=== PATIENT | female | born 1965 | race Caucasian/White ===

== ENCOUNTER → 2016-07-21 | Outpatient (REF) | payer OTHER ==
[~2016-07-21] MED LIST: MYSO50TA5 PO; OMEP40CA2 PO; TRAZ50TA4 PO; VICT18IN SC; VITA100054 PO
[2016-07-21 11:26] LABS: DIFF SLIDE NUMBER 189; MEAN CORPUSCULAR HEMOGLOBIN 31.4 pg (27.0-33.0); MEAN CORPUSCULAR HGB CONC 31.5 g/dl (32.0-36.5); MEAN CORPUSCULAR VOLUME 99.5 fl (80.0-96.0); RED CELL DISTRIBUTION WIDTH 14.1 % (11.5-14.5); WHITE BLOOD COUNT 2.8 K/mm3 (4.0-10.0)
[2016-07-21 11:50] LABS: EOSINOPHILS 1 % (0-5)
[2016-07-21 11:52] LABS: ALBUMIN 3.3 GM/DL (3.2-5.2); ALBUMIN/GLOBULIN RATIO 0.77 (1.00-1.93); ALKALINE PHOSPHATASE 137 U/L (45-117); ALT/SGPT 56 U/L (12-78); ANION GAP 5 MEQ/L (8-16); AST/SGOT 46 U/L (15-37); BILIRUBIN,TOTAL 0.5 MG/DL (0.2-1.0); BLOOD UREA NITROGEN 9 MG/DL (7-18); CARBON DIOXIDE LEVEL 31 MEQ/L (21-32); CHLORIDE LEVEL 106 MEQ/L (98-107); GLOMERULAR FILTRATION RATE > 60.0 (>51); GLUCOSE, FASTING 166 MG/DL (70-105); POTASSIUM SERUM 4.1 MEQ/L (3.5-5.1); SODIUM LEVEL 142 MEQ/L (136-145); TOTAL PROTEIN 7.6 GM/DL (6.4-8.2)
[2016-07-21 12:04] LABS: PLATELET COUNT, AUTOMATED 83 k/mm3 (150-450)
[2016-07-21 14:44] LABS: CONTROL LINE MONO INT CTR LINE PRESENT
== END ==
LOC: M LAB REF 11:17
PROVIDERS: ATTEND Physician Assistant
DX: R05 Cough (principal); M70.832 Other soft tissue disorders related to use, overuse and pressure, left forearm

== ENCOUNTER → 2016-07-31 | Outpatient (CLI) | payer OTHER, MEDICAID ==
[2016-07-31 10:00] LABS: DIFF SLIDE NUMBER 134; MEAN CORPUSCULAR HEMOGLOBIN 32.1 pg (27.0-33.0); MEAN CORPUSCULAR HGB CONC 32.5 g/dl (32.0-36.5); MEAN CORPUSCULAR VOLUME 98.8 fl (80.0-96.0); RED CELL DISTRIBUTION WIDTH 14.1 % (11.5-14.5)
[2016-07-31 10:07] LABS: ALBUMIN 3.3 GM/DL (3.2-5.2); ALBUMIN/GLOBULIN RATIO 0.75 (1.00-1.93); ALKALINE PHOSPHATASE 120 U/L (45-117); ALT/SGPT 46 U/L (12-78); ANION GAP 10 MEQ/L (8-16); AST/SGOT 49 U/L (15-37); BILIRUBIN,TOTAL 0.4 MG/DL (0.2-1.0); BLOOD UREA NITROGEN 7 MG/DL (7-18); CALCIUM LEVEL 8.8 MG/DL (8.5-10.1); CARBON DIOXIDE LEVEL 28 MEQ/L (21-32); CHLORIDE LEVEL 103 MEQ/L (98-107); CREATININE FOR GFR 0.56 MG/DL (0.55-1.02); GLOMERULAR FILTRATION RATE > 60.0 (>51); GLUCOSE, FASTING 179 MG/DL (70-105); SODIUM LEVEL 141 MEQ/L (136-145); TOTAL PROTEIN 7.7 GM/DL (6.4-8.2)
[2016-07-31 10:08] LABS: BASO % 0.3 % (0.0-1.0); EOS % 1.7 % (0.0-3.0); LARGE UNSTAINED CELL % 2.6 % (0.0-4.0); LYMPH % 36.3 % (24.0-44.0); MONO % 6.8 % (0.0-5.0); NEUTROPHILS # 1.6 K/mm3 (1.8-7.7); NEUTROPHILS % 52.3 % (36.0-66.0); PLATELET COUNT, AUTOMATED 88 k/mm3 (150-450)
[2016-07-31 10:09] LABS: EOS # 0.1 K/mm3 (0.0-0.50); LARGE UNSTAINED CELL # 0.1 K/mm3 (0.0-0.4); LYMPH # 1.1 K/mm3 (1.5-4.5); MONO # 0.2 K/mm3 (0.0-0.8)
--- NOTE | 2016-07-31 10:15 | REP ---
Chest two views HISTORY: Infection Comparison: 11/30/2010 A minimal increase in interstitial markings is present in the lungs. The heart is normal in size. The pulmonary vasculature is normal in appearance. The bony structure is intact. IMPRESSION: There is a minimal increase in interstitial markings in the lungs most likely representing chronic interstitial fibrosis. Signed by Efrem Ricci MD 07/31/2016 10:07 A
== END ==
LOC: M WUC 08:31
PROVIDERS: ATTEND Nurse Practitioner Family
DX: B27.99 Infectious mononucleosis, unspecified with other complication (principal)

== ENCOUNTER → 2016-08-23 | Outpatient (REF) | payer OTHER, MEDICAID ==
[2016-08-23 17:03] LABS: REASON FOR REVIEW COMPREHENSIVE REVIEW
[2016-08-24 14:52] LABS: CONTROL LINE INT CTR LINE PRESENT; HIV SCRN NEGATIVE (NEGATIVE); HIV SCRN1 NEGATIVE (NEGATIVE)
== END ==
LOC: M LAB REF 16:06
PROVIDERS: ATTEND Internal Medicine Medical Oncology
DX: D61.818 Other pancytopenia (principal); R79.9 Abnormal finding of blood chemistry, unspecified

== ENCOUNTER → 2016-10-31 | Outpatient (REF) | payer OTHER ==
[2016-10-31 18:44] LABS: TOTAL PROTEIN 7.6 GM/DL (6.4-8.2)
[2016-11-02 12:33] LABS: ALBUMIN 3.82 GM/DL (3.29-5.55); ALBUMIN % 50.2 % (55.8-66.1); GAMMA GLOBULIN % 23.1 % (11.1-18.8)
== END ==
LOC: M LAB REF 16:40
PROVIDERS: ATTEND Internal Medicine Medical Oncology
DX: D69.6 Thrombocytopenia, unspecified (principal); D72.819 Decreased white blood cell count, unspecified

== ENCOUNTER → 2016-10-31 | Outpatient (CLI) | payer OTHER ==
--- NOTE | 2016-10-31 07:26 | REP ---
Clinical: History of mononucleosis. Splenomegaly. Technique: Real time mcarthur scale ultrasound examination of the left upper quadrant using curved array transducer. Findings: The spleen measures 14.1 x 7.8 x 14.1 cm (splenic uodip=[id number]), but is otherwise normal in contour and echogenicity without focal splenic lesion identified. A small accessory spleen in the left upper quadrant may choose 1.7 cm diameter. Left kidney is normal in reniform shape without hydronephrosis and measures 10.3 x 6.3 x 5.3 cm. No ascites. Impression: Splenomegaly without focal splenic lesion identified. Signed by Erik Olson MD 10/31/2016 07:18 A
== END ==
LOC: M RAD 06:11
PROVIDERS: ATTEND Internal Medicine Medical Oncology
DX: R79.9 Abnormal finding of blood chemistry, unspecified (principal); R16.1 Splenomegaly, not elsewhere classified

== ENCOUNTER → 2016-12-07 | Outpatient (REF) | payer OTHER ==
[~2016-12-07] MED LIST changes: +TRAZ50TA11 PO; -TRAZ50TA4 PO
[2016-12-07 13:40] LABS: REASON FOR REVIEW COMPREHENSIVE REVIEW
== END ==
LOC: M LAB REF 12:15
PROVIDERS: ATTEND Internal Medicine Medical Oncology
DX: D69.6 Thrombocytopenia, unspecified (principal); D61.818 Other pancytopenia

== ENCOUNTER → 2017-07-27 | Outpatient (REF) | payer OTHER ==
[2017-07-27 12:05] LABS: BASO % 0.3 % (0.0-1.0); EOS # 0.1 10^3/uL (0.0-0.50); EOS % 2.6 % (0.0-3.0); HEMATOCRIT 41.4 % (36.0-47.0); IMMATURE GRANULOCYTE % 0.3 % (0-3.0); LYMPH # 1.2 10^3/uL (1.5-4.5); LYMPH % 35.4 % (24.0-44.0); MEAN CORPUSCULAR HEMOGLOBIN 32.2 pg (27.0-33.0); MEAN CORPUSCULAR HGB CONC 31.4 g/dl (32.0-36.5); MEAN CORPUSCULAR VOLUME 102.5 fl (80.0-96.0); MONO # 0.2 10^3/uL (0.0-0.8); MONO % 6.6 % (0.0-5.0); NEUTROPHILS # 1.9 10^3/uL (1.8-7.7); NEUTROPHILS % 54.8 % (36.0-66.0); RED BLOOD COUNT 4.04 10^6/uL (4.00-5.40); RED CELL DISTRIBUTION WIDTH 14.7 % (11.5-14.5); WHITE BLOOD COUNT 3.5 10^3/uL (4.0-10.0)
[2017-07-27 12:18] LABS: TOTAL 25(OH) VITAMIN D 20.9 NG/ML (30.0-100.0)
[2017-07-27 12:24] LABS: ALBUMIN 3.6 GM/DL (3.2-5.2); ALBUMIN/GLOBULIN RATIO 0.86 (1.00-1.93); ALKALINE PHOSPHATASE 99 U/L (45-117); ALT/SGPT 40 U/L (12-78); ANION GAP 7 MEQ/L (8-16); AST/SGOT 37 U/L (7-37); BILIRUBIN,TOTAL 0.5 MG/DL (0.2-1.0); BLOOD UREA NITROGEN 11 MG/DL (7-18); CALCIUM LEVEL 8.7 MG/DL (8.5-10.1); CARBON DIOXIDE LEVEL 28 MEQ/L (21-32); CHLORIDE LEVEL 108 MEQ/L (98-107); CHOLESTEROL LEVEL 154 MG/DL (<200); CREATININE FOR GFR 0.56 MG/DL (0.55-1.30); GLOMERULAR FILTRATION RATE > 60.0 (>51); GLUCOSE, FASTING 144 MG/DL (70-100); HDL CHOLESTEROL 55 MG/DL (>40); IRON (FE) 62 UG/DL (50-170); LDL CHOLESTEROL 76.6 MG/DL (<100); NON-HDL-C 99 MG/DL; POTASSIUM SERUM 3.9 MEQ/L (3.5-5.1); SODIUM LEVEL 143 MEQ/L (136-145); TOTAL PROTEIN 7.8 GM/DL (6.4-8.2); TRIGLYCERIDES LEVEL 112 MG/DL (<150)
[2017-07-27 13:28] LABS: PLATELET COUNT, AUTOMATED 79 10^3/uL (150-450)
[2017-07-27 13:29] LABS: IMMATURE PLATELET FRACTION % 4.3 % (0.0-9.6)
== END ==
LOC: M LABDRAW1 08:33
DX: D50.9 Iron deficiency anemia, unspecified (principal); E55.9 Vitamin D deficiency, unspecified; Z13.220 Encounter for screening for lipoid disorders; E11.9 Type 2 diabetes mellitus without complications

== ENCOUNTER → 2017-10-11 | Outpatient (REF) | payer OTHER | LOC: M LAB REF 18:38 | DX: D72.819 Decreased white blood cell count, unspecified (principal) | CPT/HCPCS: 88300 ==

== ENCOUNTER → 2017-10-24 | Outpatient (CLI) | payer OTHER | LOC: M WHC 13:25 | DX: Z12.31 Encounter for screening mammogram for malignant neoplasm of breast (principal) ==

== ENCOUNTER → 2018-05-03 | Outpatient (REF) | payer OTHER ==
[2018-05-03 15:53] LABS: BASO % 0.3 % (0.0-1.0); HEMATOCRIT 41.2 % (36.0-47.0); HEMOGLOBIN 12.9 g/dl (12.0-15.5); IMMATURE GRANULOCYTE % 0.5 % (0-3.0); LYMPH # 0.8 10^3/uL (1.5-4.5); LYMPH % 21.7 % (24.0-44.0); MEAN CORPUSCULAR HEMOGLOBIN 31.3 pg (27.0-33.0); MEAN CORPUSCULAR HGB CONC 31.3 g/dl (32.0-36.5); MONO # 0.3 10^3/uL (0.0-0.8); MONO % 6.5 % (0.0-5.0); NEUTROPHILS # 2.7 10^3/uL (1.8-7.7); RED BLOOD COUNT 4.12 10^6/uL (4.00-5.40); RED CELL DISTRIBUTION WIDTH 15.5 % (11.5-14.5); WHITE BLOOD COUNT 3.9 10^3/uL (4.0-10.0)
[2018-05-03 15:53] LABS: IRON (FE) 93 UG/DL (50-170)
[2018-05-03 16:09] LABS: PLATELET COUNT, AUTOMATED 87 10^3/uL (150-450)
[2018-05-03 16:11] LABS: IMMATURE PLATELET FRACTION % 3.3 % (0.0-9.6)
== END ==
LOC: M LABDRAW1 13:43
DX: D50.9 Iron deficiency anemia, unspecified (principal); D55.9 Anemia due to enzyme disorder, unspecified
CPT/HCPCS: 83540

== ENCOUNTER → 2018-10-25 | Outpatient (CLI) | payer OTHER, MEDICAID ==
[~2018-10-25] MED LIST changes: +TRAZ-160 PO; -TRAZ50TA11 PO
--- NOTE | 2018-10-25 14:40 | REPMRS ---
Patient History The patient states she had a clinical breast exam in 10/2018. Patient is postmenopausal. No known family history of cancer. 3D TOMOSYNTHESIS WAS PERFORMED. Digital Woman Screen Mammo: October 25, 2018 - Exam #: [id number] Bilateral CC and MLO view(s) were taken. Technologist: Romi Kidd, Technologist Prior study comparison: October 24, 2017, digital woman screen mammo performed at [facility]. March 22, 2016, digital woman screen mammo performed at [facility]. FINDINGS: There are scattered fibroglandular densities. There has been no change in the appearance of the mammogram from the prior studies. There is a mild amount of residual fibroglandular tissue which is fairly symmetric. There is no interval development of dominant mass, architectural distortion, or clustered microcalcification suggestive of malignancy. Assessment: BI-RADS/ACR category 1 mammogram. Negative Mammogram. Recommendation Routine screening mammogram in 1 year (for women over age 40). This mammogram was interpreted with the aid of an FDA-approved computer-aided dectection system. Electronically Signed By: Anthony Baez MD 10/25/18 0789
== END ==
LOC: M WHC 13:20
PROVIDERS: ATTEND Nurse Practitioner Family
DX: Z12.31 Encounter for screening mammogram for malignant neoplasm of breast (principal)

== ENCOUNTER → 2018-11-02 | Outpatient (CLI) | payer OTHER, MEDICAID ==
[~2018-11-02] MED LIST changes: -TRAZ-160 PO; +TRAZ-252 PO
--- NOTE | 2018-11-02 09:06 | REP ---
Clinical: Chronic cough. Technique: PA and lateral. Comparison: 07/31/2016. Findings: Mediastinum and cardiac silhouette are normal. Coarsened pulmonary markings may reflect reactive airway disease. No focal consolidation. No effusion. No pneumothorax. Skeletal structures intact. Impression: Cannot exclude chronic reactive airway disease. No focal consolidation. Electronically Signed by Erik Olson MD 11/02/2018 08:57 A
[2018-11-02 09:11] LABS: BASO % 0.3 % (0.0-1.0); EOS # 0.1 10^3/uL (0.0-0.50); EOS % 1.6 % (0.0-3.0); HEMATOCRIT 43.5 % (36.0-47.0); HEMOGLOBIN 13.8 g/dl (12.0-15.5); LYMPH % 30.2 % (24.0-44.0); MEAN CORPUSCULAR HEMOGLOBIN 32.4 pg (27.0-33.0); MEAN CORPUSCULAR HGB CONC 31.7 g/dl (32.0-36.5); MEAN CORPUSCULAR VOLUME 102.1 fl (80.0-96.0); MONO # 0.2 10^3/uL (0.0-0.8); MONO % 5.4 % (0.0-5.0); NEUTROPHILS % 62.2 % (36.0-66.0); RED BLOOD COUNT 4.26 10^6/uL (4.00-5.40); WHITE BLOOD COUNT 3.2 10^3/uL (4.0-10.0)
[2018-11-02 09:12] LABS: PLATELET COUNT, AUTOMATED 75 10^3/uL (150-450)
[2018-11-02 09:36] LABS: ALBUMIN 3.4 GM/DL (3.2-5.2); ALT/SGPT 40 U/L (12-78); BILIRUBIN,TOTAL 0.5 MG/DL (0.2-1.0); BLOOD UREA NITROGEN 10 MG/DL (7-18); CALCIUM LEVEL 9.1 MG/DL (8.5-10.1); CARBON DIOXIDE LEVEL 26 MEQ/L (21-32); CHLORIDE LEVEL 106 MEQ/L (98-107); CHOLESTEROL LEVEL 142 MG/DL (<200); CHOLESTEROL RISK RATIO 2.535 (<5); CREATININE FOR GFR 0.64 MG/DL (0.55-1.30); FREE T4 0.79 NG/DL (0.76-1.46); GLOMERULAR FILTRATION RATE > 60.0 (>51); GLUCOSE, FASTING 161 MG/DL (70-100); HDL CHOLESTEROL 56 MG/DL (>40); LDL CHOLESTEROL 71 MG/DL (<100); MAGNESIUM LEVEL 2.2 MG/DL (1.8-2.4); NON-HDL-C 86 MG/DL; SODIUM LEVEL 141 MEQ/L (136-145); TRIGLYCERIDES LEVEL 76 MG/DL (<150)
[2018-11-02 09:40] LABS: CREATININE, URINE 48.8 MG/DL; MALB URINE SIEMENS 8.8 MG/L
[2018-11-02 10:32] LABS: HEMOGLOBIN A1c 6.6 %
[2018-11-04 10:13] LABS: TOTAL 25(OH) VITAMIN D 26.9 NG/ML (30.0-100.0)
== END ==
LOC: M LAB 08:15
PROVIDERS: ATTEND Nurse Practitioner Family
DX: E11.9 Type 2 diabetes mellitus without complications (principal); I10 Essential (primary) hypertension; E55.9 Vitamin D deficiency, unspecified; R05 Cough

== ENCOUNTER → 2018-12-03 | Outpatient (REF) | payer OTHER, MEDICAID ==
[~2018-12-03] MED LIST changes: +AZIT-12 PO; +INSUHUMDS SC; +LANTINJ4 SC; -OMEP40CA2 PO; +OMEP40CA97 PO
[2018-12-03 13:42] LABS: CREATININE, URINE 54.1 MG/DL; MAU/CREAT RATIO 20.3 MCG/MG (0.0-30.0)
== END ==
LOC: M LABDRAW1 11:09
PROVIDERS: ATTEND Nurse Practitioner Family
DX: E11.9 Type 2 diabetes mellitus without complications (principal)

== ENCOUNTER → 2018-12-20 | Outpatient (CLI) | payer OTHER, MEDICAID ==
[~2018-12-20] MED LIST changes: -AZIT-12 PO; +GASTROGRAFIN SOLUTION 30ML (Q9963) As Ordered ONE; -INSUHUMDS SC; +ISOVUE-370 76% 100ML VIAL (Q9967) As Ordered ONE; -LANTINJ4 SC; +OMEP40CA2 PO; -OMEP40CA97 PO
--- NOTE | 2018-12-20 15:47 | REP ---
CT abdomen and pelvis without and with IV contrast: With oral contrast. History: Thrombocytopenia. Comparison CT study October 16, 2011. CT contrast dose: 100 ml of intravenous Isovue [address] findings: Digital preliminary special education educational assistant radiograph demonstrates moderate enlargement of the spleen which displays a craniocaudal imaging span of 14.5 cm on the special education educational assistant view. Hernia repair sutures are seen scattered in the abdomen and there are clips in the right upper quadrant. The bowel gas pattern is normal. On pre and postcontrast CT images the spleen is moderately enlarged and is homogeneous. It measures 15.4 cm in greatest transverse dimension. The liver shows mild fatty infiltration but is not enlarged. However, the splenic vein is prominent in size. The main portal vein is 15 mm which is slightly prominent and there are umbilical vein recanalization collaterals in the upper abdomen entering the liver. There are variceal veins about the vena cava adjacent to the portal vein as well. The renal veins are unremarkable. The left ovarian vein and the parametrial veins are prominent however. No pancreatic abnormality is seen. The gallbladder is surgically absent. There is an intrarenal calculus in the lower pole of the right kidney measuring 6 mm in greatest diameter. No hydronephrosis or renal mass is seen on either side. The patient is status post ventral hernia repair. Small and large bowel loops are unremarkable. No uterine or adnexal abnormality is seen. Urinary bladder is intact. Impression: 1. Moderate splenomegaly. This is increased in size since the October 16, 2011 prior study when it was borderline in size measuring 12 cm in greatest dimension. It measures 15 cm today. There is some fatty infiltration of the liver. There are upper abdominal dilated collateral veins suggesting portal hypertension. The umbilical vein is recanalized and there are charly vena caval venous collaterals. 2. Intrarenal calculus lower pole right kidney 6 mm in diameter. 3. Postcholecystectomy. Post ventral herniorrhaphy. 4. Bilateral L5 spondylolysis with fusion of the L5-S1 disc. There is an 8 mm L5-S1 spondylolisthesis. Electronically Signed by Chino Hale MD 12/20/2018 04:55 P
== END ==
LOC: M RAD 12:21
PROVIDERS: ATTEND Nurse Practitioner Family
DX: D69.6 Thrombocytopenia, unspecified (principal)

== ENCOUNTER 2019-01-21 10:30 | Day surgery (SDC) | payer OTHER, MEDICAID ==
[~2019-01-21] VITALS: Ht 154.9 cm; Wt 79.4 kg
[~2019-01-21 10:30] MED LIST changes: -GASTROGRAFIN SOLUTION 30ML (Q9963) As Ordered ONE; -ISOVUE-370 76% 100ML VIAL (Q9967) As Ordered ONE
[2019-01-21] MEDS ORDERED: NS 1,000 ML IV ONE (11:00)
[2019-01-21] MEDS ORDERED: LIDOCAINE 2% INJ 100 MG/5 ML SDV (FOR ANES.) As Ordered ONE (11:29)
[2019-01-21] MEDS ORDERED: PROPOFOL 200 MG/20 ML VIAL As Ordered ONE (11:29)
--- NOTE | 2019-01-21 12:12 | ROOR ---
Patient Name: Jackie Cruz Procedure Date: 01/21/2019 11:14 AM Date of : 1965 Age: 53 [facility]: [facility] Gender: Female Note Status: Finalized Procedure: Upper GI endoscopy Indications: Portal hypertension rule out esophageal varices Providers: Brandon Lyon MD Referring MD: Yissel Waggoner Requesting Provider: Medicines: Monitored Anesthesia Care Complications: No immediate complications. Procedure: Pre-Anesthesia Assessment: - Prior to the procedure, a History and Physical was performed, and patient medications and allergies were reviewed. The patient is competent. The risks and benefits of the procedure and the sedation options and risks were discussed with the patient. All questions were answered and informed consent was obtained. Patient identification and proposed procedure were verified by the physician, the nurse and the anesthesiologist in the procedure room. Mental Status Examination: alert and oriented. Airway Examination: normal oropharyngeal airway and neck mobility. Respiratory Examination: clear to auscultation. CV Examination: normal. Prophylactic Antibiotics: The patient does not require prophylactic antibiotics. Prior Anticoagulants: The patient has taken no previous anticoagulant or antiplatelet agents. ASA Grade Assessment: III - A patient with severe systemic disease. After reviewing the risks and benefits, the patient was deemed in satisfactory condition to undergo the procedure. The anesthesia plan was to use monitored anesthesia care (MAC). Immediately prior to administration of medications, the patient was re-assessed for adequacy to receive sedatives. The heart rate, respiratory rate, oxygen saturations, blood pressure, adequacy of pulmonary ventilation, and response to care were monitored throughout the procedure. The physical status of the patient was re-assessed after the procedure. The Endoscope was introduced through the mouth, and advanced to the second part of duodenum. The upper GI endoscopy was accomplished without difficulty. The patient tolerated the procedure well. Findings: The examined esophagus was normal. The Z-line was regular and was found 40 cm from the incisors. Diffuse moderate inflammation characterized by erosions, erythema and granularity was found in the gastric antrum. Biopsies were taken with a cold forceps for Helicobacter pylori testing. Verification of patient identification for the specimen was done by the physician and nurse using the patient's name, date and medical record number. Estimated blood loss was minimal. The duodenal bulb and second portion of the duodenum were normal. Impression: - Normal esophagus. - Z-line regular, 40 cm from the incisors. - Gastritis. Biopsied. - Normal duodenal bulb and second portion of the duodenum. Recommendation: - Patient has a contact number available for emergencies. The signs and symptoms of potential delayed complications were discussed with the patient. Return to normal activities tomorrow. Written discharge instructions were provided to the patient. - Resume previous diet. - Continue present medications. - Await pathology results. - Follow an antireflux regimen. - Await pathology results. 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 Brandon Lyon MD Brandon Lyon MD 01/21/2019 12:11:32 PM Electronically signed by Brandon Lyon MD Number of Addenda: 0 Note Initiated On: 01/21/2019 11:14 AM Estimated Blood Loss: Estimated blood loss was minimal.
--- NOTE | 2019-01-21 12:14 | ROOR ---
Patient Name: Jackie Cruz Procedure Date: 01/21/2019 11:15 AM Date of : 1965 Age: 53 Room: [facility] Gender: Female Note Status: Finalized Procedure: Colonoscopy Indications: Screening for colorectal malignant neoplasm Providers: Brandon Lyon MD Referring MD: Yissel Waggoner Requesting Provider: Medicines: Monitored Anesthesia Care Complications: No immediate complications. Procedure: Pre-Anesthesia Assessment: - Prior to the procedure, a History and Physical was performed, and patient medications and allergies were reviewed. The patient is competent. The risks and benefits of the procedure and the sedation options and risks were discussed with the patient. All questions were answered and informed consent was obtained. Patient identification and proposed procedure were verified by the physician, the nurse and the anesthesiologist in the procedure room. Mental Status Examination: alert and oriented. Airway Examination: normal oropharyngeal airway and neck mobility. Respiratory Examination: clear to auscultation. CV Examination: normal. Prophylactic Antibiotics: The patient does not require prophylactic antibiotics. Prior Anticoagulants: The patient has taken no previous anticoagulant or antiplatelet agents. ASA Grade Assessment: II - A patient with mild systemic disease. After reviewing the risks and benefits, the patient was deemed in satisfactory condition to undergo the procedure. The anesthesia plan was to use monitored anesthesia care (MAC). Immediately prior to administration of medications, the patient was re-assessed for adequacy to receive sedatives. The heart rate, respiratory rate, oxygen saturations, blood pressure, adequacy of pulmonary ventilation, and response to care were monitored throughout the procedure. The physical status of the patient was re-assessed after the procedure. The Colonoscope was introduced through the anus and advanced to the terminal ileum, with identification of the appendiceal orifice and IC valve. The colonoscopy was performed without difficulty. The patient tolerated the procedure well. The quality of the bowel preparation was good. The terminal ileum, ileocecal valve, appendiceal orifice, and rectum were photographed. Scope insertion time was 3 minutes. Scope withdrawal time was 10 minutes. The total duration of the procedure was 14 minutes. Findings: The perianal and digital rectal examinations were normal. The terminal ileum appeared normal. A 4 mm polyp was found in the recto-sigmoid colon. The polyp was sessile. The polyp was removed with a cold biopsy forceps. Resection and retrieval were complete. Verification of patient identification for the specimen was done by the physician and nurse using the patient's name, date and medical record number. Estimated blood loss was minimal. Non-bleeding external and internal hemorrhoids were found during retroflexion. The hemorrhoids were medium-sized. No other significant abnormalities were identified in a careful examination of the remainder of the colon. Impression: - The examined portion of the ileum was normal. - One 4 mm polyp at the recto-sigmoid colon, removed with a cold biopsy forceps. Resected and retrieved. - Non-bleeding external and internal hemorrhoids. Recommendation: - Patient has a contact number available for emergencies. The signs and symptoms of potential delayed complications were discussed with the patient. Return to normal activities tomorrow. Written discharge instructions were provided to the patient. - High fiber diet. - Continue present medications. - Await pathology results. - Repeat colonoscopy in 5-10 years for surveillance based on pathology results. - Telephone GI clinic for pathology results in 2 weeks. - Return to GI clinic in [facility] (address [address], [address], [place] [address]) in 4 -- 6 weeks. Please call GI clinic @ [phone] for apppointment date and time. - Return to primary care physician. Brandon Lyon MD Brandon Lyon MD 01/21/2019 12:13:56 PM Electronically signed by Brandon Lyon MD Number of Addenda: 0 Note Initiated On: 01/21/2019 11:15 AM Estimated Blood Loss: Estimated blood loss was minimal.
[2019-01-21 12:20] VITALS: BP 128/62
[2019-01-21] MEDS ORDERED: D5W 1,000 ML IV SCH (12:45)
== END 2019-01-21 12:31 | disposition home or self-care (01) ==
LOC: M OPP 10:30
PROVIDERS: ATTEND Internal Medicine Gastroenterology
DX: Z12.11 Encounter for screening for malignant neoplasm of colon (principal); K64.8 Other hemorrhoids; K76.6 Portal hypertension; K29.70 Gastritis, unspecified, without bleeding; I10 Essential (primary) hypertension; J45.901 Unspecified asthma with (acute) exacerbation; E11.9 Type 2 diabetes mellitus without complications; Z79.4 Long term (current) use of insulin; Z79.899 Other long term (current) drug therapy; Z88.8 Allergy status to other drugs, medicaments and biological substances

== ENCOUNTER → 2019-02-28 | Outpatient (CLI) | payer OTHER, MEDICAID ==
[2019-02-28 15:27] LABS: PLATELET COUNT, AUTOMATED 80 10^3/uL (150-450)
[2019-02-28 15:41] LABS: INR 1.11; PARTIAL THROMBOPLASTIN TIME 28.7 SECONDS (25.0-38.4); PROTHROMBIN TIME 14.1 SECONDS (11.8-14.0)
[2019-02-28 16:05] LABS: ALBUMIN 3.4 GM/DL (3.2-5.2); ALT/SGPT 40 U/L (12-78); BILIRUBIN,DIRECT 0.2 MG/DL (0.0-0.2); BILIRUBIN,TOTAL 0.8 MG/DL (0.2-1.0); FERRITIN 70 NG/ML (8-252); HEPATITIS B SURFACE ANTIBODY NEGATIVE (POSITIVE); HEPATITIS B SURFACE ANTIGEN NEGATIVE (NEGATIVE); IRON (FE) 101 UG/DL (50-170); PERCENT SATURATION 27.2 % (13.2-45.0); TOTAL IRON BINDING CAPACITY 371 UG/DL (250-450); TOTAL PROTEIN 7.7 GM/DL (6.4-8.2)
[2019-02-28 16:31] LABS: HEPATITIS C VIRUS ABY INDEX 0.2 INDEX (<0.8)
[2019-03-04 08:37] LABS: ALPHA 1 ANTITRYPSIN 145 mg/dL (90-200); ANTI-MITOCHONDRIAL ANTIBODY <20.0 Units (0.0-20.0); ANTI-SMOOTH MUSCLE ANTIBODY 13 Units (0-19); ANTINUCLEAR ANTIBODIES DIRECT Negative (Negative); CERULOPLASMIN 23.3 mg/dL (19.0-39.0); LIVER-KIDNEY MICROSOMAL ABY <20.1 Units (0.0-20.0)
== END ==
LOC: M LAB 13:43
PROVIDERS: ATTEND Internal Medicine Gastroenterology
DX: K76.6 Portal hypertension (principal)

== ENCOUNTER → 2019-03-17 | Outpatient (CLI) | payer OTHER, MEDICAID ==
[~2019-03-17] MED LIST changes: -OMEP40CA2 PO; +OMEP40CA97 PO
--- NOTE | 2019-03-18 08:13 | REP ---
Clinical: Gastritis and history of portal hypertension. Technique: Real time mcarthur scale and color Doppler evaluation using curved array transducer. Findings: Liver demonstrates coarsened echotexture with decreased through transmission suggesting hepatocellular disease. No obvious focal hepatic lesion identified. The pancreas is incompletely evaluated due to interposed bowel gas but visualized portions appear normal. Splenomegaly is noted (splenic index equals 2356) without focal splenic lesion identified. The patient is known to be status post cholecystectomy. Common bile duct is normal at 6.4 mm. The bilateral kidneys are normal in appearance without hydronephrosis. Right kidney measures 12.4 x 5.9 x 5.2 cm. Left kidney measures 10.2 x 6.0 x 5.6 cm. Abdominal aorta measures 2.4 cm maximal diameter. No ascites. Color Doppler evaluation demonstrates a patent umbilical vein along with normal flow direction and wave patterns. Main portal vein velocity at 31 cm/sec which is upper limits of normal range. Hepatic vein demonstrates loss of normal phasicity and consistent with portal hypertension. Impression: 1. Findings consistent with cirrhosis and portal venous hypertension including recanalized umbilical vein and splenomegaly. Electronically Signed by Erik Olson MD 03/18/2019 08:04 A
== END ==
LOC: M RAD 06:54
PROVIDERS: ATTEND Internal Medicine Gastroenterology
DX: K76.6 Portal hypertension (principal); K29.50 Unspecified chronic gastritis without bleeding

== ENCOUNTER 2019-04-21 23:09 | Emergency (ER) | payer OTHER, MEDICAID ==
[2019-04-22 00:38] LABS: BASO % 0.3 % (0.0-1.0); EOS % 0.9 % (0.0-3.0); HEMATOCRIT 40.3 % (36.0-47.0); HEMOGLOBIN 12.8 g/dl (12.0-15.5); LYMPH # 0.5 10^3/uL (1.5-5.0); MEAN CORPUSCULAR HEMOGLOBIN 31.7 pg (27.0-33.0); MEAN CORPUSCULAR HGB CONC 31.8 g/dl (32.0-36.5); MEAN CORPUSCULAR VOLUME 99.8 fl (80.0-96.0); MONO # 0.3 10^3/uL (0.0-0.8); MONO % 10.4 % (0.0-5.0); NEUTROPHILS # 2.3 10^3/uL (1.5-8.5); NEUTROPHILS % 72.1 % (36.0-66.0); RED BLOOD COUNT 4.04 10^6/uL (4.00-5.40); WHITE BLOOD COUNT 3.2 10^3/uL (4.0-10.0)
[2019-04-22 00:49] LABS: BLOOD UREA NITROGEN 13 MG/DL (7-18); CALCIUM LEVEL 9.2 MG/DL (8.5-10.1); CARBON DIOXIDE LEVEL 30 MEQ/L (21-32); CHLORIDE LEVEL 103 MEQ/L (98-107); CREATININE FOR GFR 0.58 MG/DL (0.55-1.30); GLOMERULAR FILTRATION RATE > 60.0 (>51); GLUCOSE, FASTING 126 MG/DL (70-100); POTASSIUM SERUM 3.4 MEQ/L (3.5-5.1); SODIUM LEVEL 140 MEQ/L (136-145)
[2019-04-22 01:09] LABS: PLATELET COUNT, AUTOMATED 71 10^3/uL (150-450)
[2019-04-22] MEDS ORDERED: POTASSIUM CHLORIDE 10 MEQ SR TABLET PO ONE (02:00)
[2019-04-22] MEDS ORDERED: ISOVUE-370 76% 100ML VIAL (Q9967) As Ordered ONE (02:57)
[2019-04-22 03:14] LABS: ALBUMIN 3.3 GM/DL (3.2-5.2); ALT/SGPT 40 U/L (12-78); BILIRUBIN,DIRECT 0.2 MG/DL (0.0-0.2); BILIRUBIN,TOTAL 0.6 MG/DL (0.2-1.0); CK-MB VALUE MASS 5.5 NG/ML (<3.6); CPK CREATINE PHOSPHOKINASE 179 U/L (26-192); LIPASE 187 U/L (73-393); MB/CK RELATIVE INDEX 3.07 (< OR =4); TOTAL PROTEIN 7.6 GM/DL (6.4-8.2); TROPONIN I < 0.02 NG/ML (< 0.10)
--- NOTE | 2019-04-22 03:53 | REPVR ---
PROCEDURE INFORMATION: Exam: CT Angiography Chest With Contrast Exam date and time: 04/22/2019 3:10 AM Clinical history: 53 years old, female; Bilateral chest pain TECHNIQUE: Imaging protocol: Computed tomographic angiography of the chest with intravenous contrast. 3D rendering: MIP reconstructed images were created and reviewed. Radiation optimization: All CT scans at this facility use at least one of these dose optimization techniques: automated exposure control; mA and/or kV adjustment per patient size (includes targeted exams where dose is matched to clinical indication); or iterative reconstruction. Contrast material: ISOVUE 370; Contrast volume: 100 ml; Contrast route: IV; COMPARISON: CR Chest, 2 view PA, Lat 11/02/2018 8:52 AM FINDINGS: Pulmonary arteries: No pulmonary embolism is identified. Great vessels off aortic arch: The brachiocephalic artery, imaged proximal portion of the left common carotid artery, and left subclavian artery are intact. No significant stenosis or occlusion of these vessels is noted. Aorta: There is no thoracic aortic aneurysm, pseudoaneurysm, intramural hematoma, penetrating atherosclerotic ulcer, or dissection. Lungs: There are subpleural reticular opacities in both lungs. No consolidation or mass is noted. The major airways are patent. Pleural space: Unremarkable. No pneumothorax. No pleural effusion. Heart: There is cardiomegaly. No pericardial effusion. The ratio of the diameter of the right ventricle to the diameter of the left ventricle measures less than 1, which is within normal limits and there is no evidence for a right ventricular strain. Mediastinum: No mediastinal mass, fluid collection, or pneumomediastinum. Spleen: The spleen is enlarged. Incidental note is made of a small accessory spleen. Lymph nodes: Normal. No enlarged lymph nodes. Bones/joints: The imaged bony structures are intact. There is no suspicious osteolytic or osteoblastic lesion. There are 12 rib-bearing thoracic vertebral bodies. Soft tissues: Unremarkable. IMPRESSION: 1. No pulmonary embolism. 2. No thoracic aortic aneurysm, pseudoaneurysm, intramural hematoma, penetrating atherosclerotic ulcer, or dissection. 3. Subpleural reticular opacities in both lungs, which may indicate a nonspecific interstitial pneumonia or usual interstitial pneumonia pattern. 4. Cardiomegaly. 5. Splenomegaly. Electronically signed by: Jesus Ramos On 04/22/2019 03:53:29 AM
--- NOTE | 2019-04-22 03:54 | REPVR ---
PROCEDURE INFORMATION: Exam: CT Abdomen And Pelvis With Contrast Exam date and time: 04/22/2019 3:10 AM Clinical history: 53 years old, female; Abdominal pain; Generalized; Additional info: Bilateral chest pain TECHNIQUE: Imaging protocol: Computed tomography of the abdomen and pelvis with intravenous contrast. Radiation optimization: All CT scans at this facility use at least one of these dose optimization techniques: automated exposure control; mA and/or kV adjustment per patient size (includes targeted exams where dose is matched to clinical indication); or iterative reconstruction. Contrast material: ISOVUE 370; Contrast volume: 100 ml; Contrast route: IV; COMPARISON: CT ABD PELVIS W/O FOL BY WIT 12/20/2018 2:09 PM FINDINGS: Lungs: See CTA chest report on 04/22/2019 for details. Heart: See CTA chest report on 04/22/2019 for details. Liver: The attenuation of the liver is more than 40 Hounsfield units lower in attenuation compared to the spleen, which is compatible with fatty liver infiltration. No liver lesion is seen. The contour of the liver is smooth. No hepatomegaly is noted. Gallbladder and bile ducts: There has been a cholecystectomy. There is no fluid collection in the gallbladder fossa. No dilation of the bile ducts is noted. Pancreas: Normal. No ductal dilation. Spleen: The spleen is heterogeneous in appearance, which is likely secondary to the arterial timing of the contrast bolus. The spleen is enlarged and measures 13.8 cm. Incidental note is made of a small accessory spleen. Adrenals: Normal. No mass. Kidneys and ureters: The kidneys are normal in appearance. No renal lesion is identified. No calculi are seen in the kidneys or ureters. There is no hydronephrosis or hydroureter. There are no wedge-shaped areas of low attenuation in the kidneys to suggest pyelonephritis. There is no renal abscess or perinephric fluid collection. Stomach and bowel: There is no evidence for a bowel obstruction, diverticulosis, diverticulitis, colitis, pneumatosis intestinalis, intussusception, volvulus, or perforated viscus. Appendix: The appendix is not identified and may have been removed. No dilated blind ending tubular structure, inflammatory fat stranding, or fluid is noted in the expected location of the appendix. Intraperitoneal space: Unremarkable. No fluid collection. No free air. Retroperitoneal space: Unremarkable. No fluid collection. No mass. Vasculature: The abdominal aorta is patent, normal in caliber, and there is no dissection. The renal arteries, celiac artery, superior mesenteric artery, inferior mesenteric artery, iliac arteries, and common femoral arteries are patent. The main portal vein is dilated and measures 14 mm in diameter. The splenic vein is also dilated and measures 15 mm in diameter. Lymph nodes: Normal. No enlarged lymph nodes. Bladder: Unremarkable. No calculi or masses are noted in the bladder. Reproductive: The uterus is anterverted and unremarkable. The ovaries are unremarkable. Bones/joints: There are 6 non-rib bearing lumbar type vertebral bodies. There are chronic bilateral L6 pars defects and a grade 2 anterolisthesis of L6 on S1. There is solid bony bridging across the L6-S1 disc space. These findings are similar in appearance compared to the prior CT on 12/20/2018. Soft tissues: Postoperative changes are noted from a ventral hernia repair with a ventral hernia repair mesh in place. No drainable soft tissue fluid collection is noted. There is a midline vertical incision scar in the anterior abdominal wall. IMPRESSION: 1. No acute findings in the abdomen or pelvis. 2. Fatty liver. 3. Splenomegaly. Electronically signed by: Jesus Ramos On 04/22/2019 03:53:47 AM
[2019-04-22] MEDS ORDERED: AZIT-12 PO (04:48)
[2019-04-22] MEDS ORDERED: LANTINJ4 SC (05:14)
[2019-04-22] MEDS ORDERED: INSUHUMDS SC (05:15)
[2019-04-22 05:18] VITALS: BP 139/60
--- NOTE | 2019-04-22 07:46 | ECGEPIP ---
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
--- NOTE | 2019-04-23 13:40 | ED PDOC ---
Post-Departure Follow-Up roxana mcdaniels faxed formal report of ct chest and abd/p for fu Lalo Mulligan MD Apr 23, 2019 13:40
== END 2019-04-22 05:19 | disposition home or self-care (01) ==
LOC: M ED 23:09
DX: E11.649 Type 2 diabetes mellitus with hypoglycemia without coma (principal); J18.9 Pneumonia, unspecified organism; K74.60 Unspecified cirrhosis of liver; R51 Headache; K21.9 Gastro-esophageal reflux disease without esophagitis; K29.70 Gastritis, unspecified, without bleeding; M41.9 Scoliosis, unspecified; Z88.8 Allergy status to other drugs, medicaments and biological substances; Z79.4 Long term (current) use of insulin
CPT/HCPCS: 71275; 74177; 80048; 80076; 82550; 82553; 83690; 84484; 85025; 85049; 85055; 93005; 99284; Q9967

== ENCOUNTER → 2019-08-14 | Outpatient (CLI) | payer OTHER, MEDICAID ==
[~2019-08-14] MED LIST changes: +AZIT-12 PO; +INSUHUMDS SC; +LANTINJ4 SC
[2019-08-14 14:39] LABS: BASO % 0.2 % (0.0-1.0); EOS # 0.1 10^3/uL (0.0-0.5); EOS % 1.7 % (0.0-3.0); HEMATOCRIT 44.7 % (36.0-47.0); HEMOGLOBIN 14.5 g/dl (12.0-15.5); LYMPH # 1.1 10^3/uL (1.5-5.0); LYMPH % 26.5 % (24.0-44.0); MEAN CORPUSCULAR HEMOGLOBIN 32.2 pg (27.0-33.0); MEAN CORPUSCULAR HGB CONC 32.4 g/dl (32.0-36.5); MEAN CORPUSCULAR VOLUME 99.3 fl (80.0-96.0); MONO # 0.3 10^3/uL (0.0-0.8); MONO % 6.4 % (0.0-5.0); NEUTROPHILS # 2.6 10^3/uL (1.5-8.5); NEUTROPHILS % 64.7 % (36.0-66.0); WHITE BLOOD COUNT 4.1 10^3/uL (4.0-10.0)
[2019-08-14 14:40] LABS: ALBUMIN 3.8 GM/DL (3.2-5.2); BILIRUBIN,DIRECT 0.4 MG/DL (0.0-0.2); BILIRUBIN,TOTAL 1.1 MG/DL (0.2-1.0); CHOLESTEROL RISK RATIO 2.161 (<5); TOTAL PROTEIN 7.9 GM/DL (6.4-8.2)
[2019-08-14 14:47] LABS: PLATELET COUNT, AUTOMATED 85 10^3/uL (150-450)
[2019-08-14 15:13] LABS: INR 1.12; PARTIAL THROMBOPLASTIN TIME 28.6 SECONDS (25.0-38.4); PROTHROMBIN TIME 14.2 SECONDS (11.8-14.0)
== END ==
LOC: M LAB 13:54
PROVIDERS: ATTEND Internal Medicine Gastroenterology
DX: K74.60 Unspecified cirrhosis of liver (principal)

== ENCOUNTER → 2019-09-02 | Outpatient (CLI) | payer OTHER, MEDICAID ==
--- NOTE | 2019-09-02 10:04 | REP ---
ULTRASOUND ABDOMEN: Real-time sonographic evaluation of the abdomen performed. Patient has had a prior cholecystectomy. There is no intrahepatic or extrahepatic biliary dilatation. Common bile duct measures 6 mm. Echotexture of the liver is diffusely heterogeneous. No mass is seen. Pancreas demonstrates no mass. Spleen is moderately enlarged measuring 16.4 x 15.8 x 6.4 cm, splenic index is 1658. There appears to be a small splenule 1.7 x 1.7 x 1.5 cm. Kidneys are normal in size and echotexture, right kidney measuring 11.7 x 5.5 x 4.4 cm and left kidney 10.3 x 5.2 x 4.3 cm. There is no renal mass or hydronephrosis. There is ectasia of the mid abdominal aorta with an AP diameter 2.5 cm. Proximally AP diameter is 1.9 cm and distally 1.8 cm. There is no ascites. IMPRESSION: Status post cholecystectomy. Heterogeneous echotexture of the liver with no sonographic evidence of mass. Moderate splenomegaly. Electronically Signed by Anthony Baez MD 09/02/2019 10:32 A
== END ==
LOC: M RAD 08:05
PROVIDERS: ATTEND Internal Medicine Gastroenterology
DX: K74.60 Unspecified cirrhosis of liver (principal); Z90.49 Acquired absence of other specified parts of digestive tract

== ENCOUNTER → 2019-10-28 | Outpatient (REF) | payer OTHER, MEDICAID ==
[2019-10-28 19:38] LABS: CREATININE, URINE 30.5 MG/DL; MALB URINE SIEMENS 8.9 MG/L; MAU/CREAT RATIO 29.1 MCG/MG (0.0-30.0)
== END ==
LOC: M LAB REF 15:03
PROVIDERS: ATTEND Internal Medicine Endocrinology, Diabetes & Metabolism
DX: E11.9 Type 2 diabetes mellitus without complications (principal)

== ENCOUNTER → 2019-10-29 | Outpatient (CLI) | payer OTHER, MEDICAID ==
--- NOTE | 2019-10-29 14:43 | REPMRS ---
Patient History The patient states she had a clinical breast exam in October 2019. No known family history of cancer. Digital Woman Screen Mammo: October 29, 2019 - Exam #: [id number] Bilateral CC and MLO view(s) were taken. Technologist: Nisreen Centeno, Technologist Prior study comparison: October 25, 2018, bilateral digital woman screen mammo performed at [facility]. October 24, 2017, digital woman screen mammo performed at [facility]. March 22, 2016, digital woman screen mammo performed at [facility]. FINDINGS: There are scattered fibroglandular densities. The Volpara volumetric breast density category is:B. There has been no change in the appearance of the mammogram from the prior studies. There is a mild amount of scattered fibroglandular density which is fairly symmetric. There is no interval development of dominant mass, architectural distortion, or grouped microcalcification suggestive of malignancy. 3-D tomosynthesis shows no additional findings. Assessment: BI-RADS/ACR category 1 mammogram. Negative Mammogram. Recommendation Routine screening mammogram of both breasts in 1 year (for women over age 40). This patient's Lifetime Breast Cancer Risk is estimated at 10.3 %. This mammogram was interpreted with the aid of an FDA-approved computer-aided dectection system. Electronically Signed By: Pancho Hale MD 10/29/19 1720
== END ==
LOC: M WHC 13:08
PROVIDERS: ATTEND Nurse Practitioner Family
DX: Z12.31 Encounter for screening mammogram for malignant neoplasm of breast (principal)

== ENCOUNTER 2020-01-05 21:50 | Emergency (ER) | payer OTHER, MEDICAID ==
[2020-01-05] MEDS ORDERED: ACETAMINOPHEN TAB 650MG DOSE (2X325MG) ONE (22:29)
[2020-01-06] MEDS ORDERED: LevoFLOXacin 750 MG TABLET ONE (01:31)
[2020-01-06] MEDS ORDERED: IBUPROFEN 800 MG TAB ONE (01:31)
[2020-02-22 03:46] LABS: BASO % 0.3 % (0.0-1.0); EOS % 0.6 % (0.0-3.0); HEMATOCRIT 42.7 % (36.0-47.0); HEMOGLOBIN 13.5 g/dl (12.0-15.5); LYMPH # 0.3 10^3/uL (1.5-5.0); LYMPH % 7.9 % (24.0-44.0); MEAN CORPUSCULAR HEMOGLOBIN 30.8 pg (27.0-33.0); MEAN CORPUSCULAR HGB CONC 31.6 g/dl (32.0-36.5); MEAN CORPUSCULAR VOLUME 97.5 fl (80.0-96.0); MONO # 0.1 10^3/uL (0.0-0.8); MONO % 1.4 % (0.0-5.0); NEUTROPHILS # 3.2 10^3/uL (1.5-8.5); NEUTROPHILS % 89.2 % (36.0-66.0); RED BLOOD COUNT 4.38 10^6/uL (4.00-5.40); WHITE BLOOD COUNT 3.5 10^3/uL (4.0-10.0)
[2020-02-22 03:53] LABS: PLATELET COUNT, AUTOMATED 73 10^3/uL (150-450)
[2020-02-22 03:59] LABS: APPEARANCE, URINE HAZY (CLEAR); BACTERIA, URINE AUTO NEGATIVE (NEGATIVE); BILIRUBIN, URINE AUTO NEGATIVE (NEGATIVE); BLOOD, URINE BLOOD 1+ (NEGATIVE); COLOR, URINE YELLOW (YELLOW); GLUCOSE, URINE (UA) AUTO 3+ mg/dL (NEGATIVE); KETONE, URINE AUTO TRACE mg/dL (NEGATIVE); LEUKOCYTE ESTERASE, URINE AUTO 1+ (NEGATIVE); NITRITE, URINE AUTO NEGATIVE (NEGATIVE); PROTEIN, URINE AUTO NEGATIVE (NEGATIVE); RBC, URINE AUTO 4 /HPF (0-3); SPECIFIC GRAVITY URINE AUTO 1.015 (1.002-1.035); SQUAMOUS EPITHELIAL CELL UR AU 0 /HPF (0-6); UROBILINOGEN, URINE AUTO 0.2 mg/dL (0.0-2.0); WBC, URINE AUTO 35 /HPF (0-3)
[2020-03-15 01:20] LABS: ALBUMIN 3.7 GM/DL (3.2-5.2); ALT/SGPT 36 U/L (12-78); BILIRUBIN,DIRECT 0.5 MG/DL (0.0-0.2); BILIRUBIN,TOTAL 1.4 MG/DL (0.2-1.0); BLOOD UREA NITROGEN 11 MG/DL (7-18); CARBON DIOXIDE LEVEL 25 MEQ/L (21-32); CHLORIDE LEVEL 109 MEQ/L (98-107); CREATININE FOR GFR 0.79 MG/DL (0.55-1.30); GLOMERULAR FILTRATION RATE > 60.0 (>51); GLUCOSE, FASTING 144 MG/DL (70-100); LIPASE 204 U/L (73-393); POTASSIUM SERUM 3.8 MEQ/L (3.5-5.1); SODIUM LEVEL 140 MEQ/L (136-145); TOTAL PROTEIN 8.1 GM/DL (6.4-8.2)
== END 2020-01-06 02:40 | disposition home or self-care (01) ==
LOC: M ED 21:50
DX: J18.9 Pneumonia, unspecified organism (principal); E11.9 Type 2 diabetes mellitus without complications; J98.11 Atelectasis; K74.60 Unspecified cirrhosis of liver; Z79.4 Long term (current) use of insulin; Z79.899 Other long term (current) drug therapy; Z78.0 Asymptomatic menopausal state

== ENCOUNTER → 2020-01-05 | Outpatient (REF) | payer OTHER, MEDICAID ==
[2020-02-14 21:16] LABS: CREATININE, URINE 46.6 MG/DL; MAU/CREAT RATIO 225.3 MCG/MG (0.0-30.0)
== END ==
LOC: M LAB REF 09:50
PROVIDERS: ATTEND Nurse Practitioner Family
DX: E11.9 Type 2 diabetes mellitus without complications (principal)

== ENCOUNTER → 2020-05-19 | Outpatient (CLI) | payer OTHER, MEDICAID ==
[2020-05-19 08:14] LABS: BASO % 0.4 % (0.0-1.0); EOS # 0.1 10^3/uL (0.0-0.5); EOS % 2.1 % (0.0-3.0); HEMOGLOBIN 13.2 g/dl (12.0-15.5); LYMPH # 0.6 10^3/uL (1.5-5.0); LYMPH % 26.6 % (24.0-44.0); MEAN CORPUSCULAR HEMOGLOBIN 31.1 pg (27.0-33.0); MEAN CORPUSCULAR HGB CONC 31.4 g/dl (32.0-36.5); MEAN CORPUSCULAR VOLUME 99.1 fl (80.0-96.0); MONO # 0.2 10^3/uL (0.0-0.8); MONO % 6.4 % (0.0-5.0); NEUTROPHILS # 1.5 10^3/uL (1.5-8.5); NEUTROPHILS % 63.6 % (36.0-66.0); RED BLOOD COUNT 4.24 10^6/uL (4.00-5.40); WHITE BLOOD COUNT 2.3 10^3/uL (4.0-10.0)
[2020-05-19 08:17] LABS: PLATELET COUNT, AUTOMATED 56 10^3/uL (150-450)
[2020-05-19 08:22] LABS: ALBUMIN 3.4 GM/DL (3.2-5.2); ALT/SGPT 33 U/L (12-78); BILIRUBIN,TOTAL 0.4 MG/DL (0.2-1.0); BLOOD UREA NITROGEN 11 MG/DL (7-18); CALCIUM LEVEL 9.3 MG/DL (8.5-10.1); CARBON DIOXIDE LEVEL 31 MEQ/L (21-32); CHLORIDE LEVEL 109 MEQ/L (98-107); CREATININE FOR GFR 0.55 MG/DL (0.55-1.30); FREE T4 0.76 NG/DL (0.76-1.46); GLOMERULAR FILTRATION RATE > 60.0 (>51); GLUCOSE, FASTING 107 MG/DL (70-100); POTASSIUM SERUM 3.9 MEQ/L (3.5-5.1); SODIUM LEVEL 141 MEQ/L (136-145); THYROID STIMULATING HORMONE 0.829 uIU/ML (0.358-3.740); TOTAL PROTEIN 7.6 GM/DL (6.4-8.2)
[2020-05-19 09:33] LABS: HEMOGLOBIN A1c 6.2 %
[2020-05-19 10:22] LABS: TOTAL 25(OH) VITAMIN D 25.4 NG/ML (30.0-100.0)
== END ==
LOC: M LAB 06:48
PROVIDERS: ATTEND Nurse Practitioner Family
DX: E55.9 Vitamin D deficiency, unspecified (principal); D69.6 Thrombocytopenia, unspecified; E11.9 Type 2 diabetes mellitus without complications

== ENCOUNTER → 2020-05-19 | Outpatient (CLI) | payer OTHER, MEDICAID ==
--- NOTE | 2020-05-19 07:53 | REP ---
INDICATION: UNSPEC CIRRHOSIS OF LIVER LABS 1ST US 2ND. COMPARISON: 09/02/2019. TECHNIQUE: Right upper quadrant abdominal ultrasound. FINDINGS: There is a cholecystectomy. This is unchanged. There is no intrahepatic or extrahepatic biliary duct dilatation. The common biliary duct measures 7.2 mm in diameter, this is in the normal range post cholecystectomy. The hepatic parenchyma is diffusely mildly coarsened, unchanged. This is compatible with hepato steatosis/hepatocellular disease. No hepatic solid or cystic masses are identified. The pancreas is unremarkable. The spleen is not included in the current study, however, on the prior study the spleen was enlarged. The right kidney is normal size measuring 10.4 x 5.6 x 5.2 cm. There is no right renal calculus or hydronephrosis. There is no right renal solid or cystic mass. The visualized areas of the abdominal aorta are unremarkable. There is no abdominal right upper quadrant free fluid. IMPRESSION: Cholecystectomy, unchanged. Mildly coarsened hepatic parenchyma, unchanged. No solid or cystic hepatic masses. Splenomegaly on the previous study. The spleen is not included on the current right upper quadrant ultrasound. No right upper quadrant abdominal free fluid. <Electronically signed by Anthony Montiel > 05/19/20 1199
[2020-05-19 08:14] LABS: ALBUMIN 3.3 GM/DL (3.2-5.2); BILIRUBIN,DIRECT 0.2 MG/DL (0.0-0.2); BILIRUBIN,TOTAL 0.4 MG/DL (0.2-1.0); TOTAL PROTEIN 7.5 GM/DL (6.4-8.2)
== END ==
LOC: M LAB 06:32 → M RAD 06:32
PROVIDERS: ATTEND Internal Medicine Gastroenterology
DX: K74.60 Unspecified cirrhosis of liver (principal); Z90.49 Acquired absence of other specified parts of digestive tract

== ENCOUNTER → 2020-05-20 | Outpatient (CLI) | payer OTHER, MEDICAID | LOC: M LAB 14:24 | PROVIDERS: ATTEND Physician Assistant | DX: R06.00 Dyspnea, unspecified (principal) ==

== ENCOUNTER → 2020-06-24 | Outpatient (CLI) | payer OTHER, MEDICAID ==
--- NOTE | 2020-06-25 06:34 | REP ---
INDICATION: OTHER NON SPECIFIC ABNORMAL FINDING OF LUNG FIELD COMPARISON: 04/22/2019 TECHNIQUE: Axial noncontrast images from the thoracic inlet to the upper abdomen with coronal and sagittal reformations. Images obtained high-resolution technique on inspiration and expiration. This CT examination was performed using the following dose reduction techniques: Automated exposure control, adjustment of mA and/or kv according to the patient's size, and use of iterative reconstruction technique. FINDINGS: Lung ocampo demonstrate moderate scattered bilateral subpleural and perifissural fibrosis along with diffuse chronic interstitial changes. Pattern remains relatively stable on inspiration and expiration and is consistent with chronic interstitial disease/usual interstitial pneumonia. These findings are similar in distribution and appear mildly progressive as compared to prior examination. No discrete focal consolidation or effusion. No pneumothorax. Tracheobronchial tree is relatively patent. Further evaluation of the mediastinum demonstrates relatively normal thoracic aorta, pulmonary vasculature, and heart/pericardium. No cardiomegaly or pericardial effusion noted. Thyroid gland is grossly normal. Musculoskeletal structures are intact and without acute osseous abnormality. IMPRESSION: Chronic mildly progressive fibrosis. Differential diagnosis includes usual interstitial pneumonia and other nonspecific pulmonary interstitial disease. <Electronically signed by Erik Olson > 06/25/20 2212
== END ==
LOC: M RAD 14:42
PROVIDERS: ATTEND Physician Assistant
DX: R91.8 Other nonspecific abnormal finding of lung field (principal); J84.10 Pulmonary fibrosis, unspecified

== ENCOUNTER → 2020-07-27 | Outpatient (REF) | payer OTHER, MEDICAID | LOC: M LAB REF 17:19 | PROVIDERS: ATTEND Internal Medicine Pulmonary Disease | DX: J84.112 Idiopathic pulmonary fibrosis (principal) ==

== ENCOUNTER → 2020-08-18 | Outpatient (CLI) | payer OTHER, MEDICAID ==
[~2020-08-18] MED LIST changes: +ALL10TAB2 PO; +AZEL1SPR3 NARES; +B-1100TA2 PO; +CALCCAP4 PO; +D31000TA2 PO; +FLUT15.820 NARES; +FOLI1TAB11 PO; +HM S0.65 NARES; +JARD1TAB PO; +MONT10TA10 PO; +PERI0.126 SSP; +PROBCAP14 PO; +VENTAER INH; +VITMTA PO
--- NOTE | 2020-08-18 09:03 | REP ---
INDICATION: THROMBOCYTOPENIA COMPARISON: 05/19/2020 TECHNIQUE: Real time B-mode mcarthur scale ultrasound examination using curved array transducer. FINDINGS: Liver demonstrates coarsened echotexture and noted patent umbilical vein consistent with cirrhosis. No focal hepatic lesions are identified. Pancreas is incompletely evaluated due to interposed bowel gas but visualized portions are normal. Spleen is enlarged and measures 15.1 x 14.7 x 7.9 cm without focal splenic lesion appreciated. Incidental small splenule noted. Patient is status post cholecystectomy. Common bile duct measures 7 mm diameter. Bilateral kidneys are normal and without hydronephrosis. Right kidney measures 11.1 x 5.0 x 5.2 cm. Left kidney measures 10.0 x 5.6 x 4.8 cm. Visualized abdominal aorta appears normal and measures 1.8 cm maximal diameter. No ascites. IMPRESSION: Findings suggesting cirrhosis and portal hypertension including patent umbilical vein and splenomegaly. No focal hepatic or splenic lesions identified. <Electronically signed by Erik Olson > 08/18/20 0900
== END ==
LOC: M RAD 08:08
PROVIDERS: ATTEND Internal Medicine Hematology & Oncology
DX: K74.60 Unspecified cirrhosis of liver (principal); K76.6 Portal hypertension; R16.1 Splenomegaly, not elsewhere classified

== ENCOUNTER → 2020-09-12 | Outpatient (CLI) | payer OTHER, MEDICAID | LOC: M LABSMTC 11:36 | PROVIDERS: ATTEND Anesthesiology | DX: Z01.812 Encounter for preprocedural laboratory examination (principal) ==

== ENCOUNTER → 2020-09-13 | Outpatient (CLI) | payer OTHER, MEDICAID ==
[2020-09-13 13:50] LABS: APPEARANCE, URINE CLEAR (CLEAR); BACTERIA, URINE AUTO NEGATIVE (NEGATIVE); BILIRUBIN, URINE AUTO NEGATIVE (NEGATIVE); BLOOD, URINE BLOOD NEGATIVE (NEGATIVE); COLOR, URINE STRAW (YELLOW); GLUCOSE, URINE (UA) AUTO 3+ mg/dL (NEGATIVE); KETONE, URINE AUTO NEGATIVE (NEGATIVE); LEUKOCYTE ESTERASE, URINE AUTO NEGATIVE (NEGATIVE); NITRITE, URINE AUTO NEGATIVE (NEGATIVE); PROTEIN, URINE AUTO NEGATIVE (NEGATIVE); RBC, URINE AUTO 0 /HPF (0-3); SPECIFIC GRAVITY URINE AUTO 1.029 (1.002-1.035); SQUAMOUS EPITHELIAL CELL UR AU 0 /HPF (0-6); UROBILINOGEN, URINE AUTO 0.2 mg/dL (0.0-2.0); WBC, URINE AUTO 0 /HPF (0-3)
[2020-09-13 13:52] LABS: ABG BASE EXCESS -2.5 (-2.0-2.0); ABG HCO3 21.8 MEQ/L (22.0-26.0); ABG O2 SATURATION 98.8 % (95.0-99.0); ABG PARTIAL PRESSURE CO2 36.5 mmHg (35.0-45.0); ABG PARTIAL PRESSURE O2 125.6 mmHg (75.0-100.0); ABG STANDARD HCO3 22.4 MEQ/L (22.0-26.0); ABG pH (ARTERIAL) 7.395 UNITS (7.350-7.450)
[2020-09-13 13:59] LABS: HEMATOCRIT 42.3 % (36.0-47.0); HEMOGLOBIN 12.9 g/dl (12.0-15.5); MEAN CORPUSCULAR HEMOGLOBIN 30.2 pg (27.0-33.0); MEAN CORPUSCULAR HGB CONC 30.5 g/dl (32.0-36.5); MEAN CORPUSCULAR VOLUME 99.1 fl (80.0-96.0); PLATELET COUNT, AUTOMATED 54 10^3/uL (150-450); RED BLOOD COUNT 4.27 10^6/uL (4.00-5.40); WHITE BLOOD COUNT 2.1 10^3/uL (4.0-10.0)
[2020-09-13 14:07] LABS: INR 1.03; PROTHROMBIN TIME 13.7 SECONDS (12.5-14.3)
[2020-09-13 14:19] LABS: BLOOD UREA NITROGEN 10 MG/DL (7-18); CALCIUM LEVEL 9.4 MG/DL (8.5-10.1); CARBON DIOXIDE LEVEL 28 MEQ/L (21-32); CHLORIDE LEVEL 107 MEQ/L (98-107); CREATININE FOR GFR 0.64 MG/DL (0.55-1.30); GLOMERULAR FILTRATION RATE > 60.0 (>51); GLUCOSE, FASTING 250 MG/DL (70-100); POTASSIUM SERUM 3.7 MEQ/L (3.5-5.1); SODIUM LEVEL 137 MEQ/L (136-145)
--- NOTE | 2020-09-13 23:27 | ECGEPIP ---
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
--- NOTE | 2020-09-14 09:35 | REP ---
INDICATION: PULMONARY FIBROSIS COMPARISON: 01/06/2020 TECHNIQUE: PA and lateral. FINDINGS: Mediastinum and cardiac silhouette are within normal limits and stable. Chronic changes consistent with the given history of pulmonary fibrosis noted. No obvious discrete focal consolidation, effusion, or pneumothorax. Skeletal structures are intact. IMPRESSION: No acute cardiopulmonary process. Chronic appearing changes consistent with the given history of pulmonary fibrosis. <Electronically signed by Erik Olson > 09/14/20 0931
== END ==
LOC: M ADMPAT 13:01
PROVIDERS: ATTEND Thoracic Surgery (Cardiothoracic Vascular Surgery)
DX: J84.112 Idiopathic pulmonary fibrosis (principal)

== ENCOUNTER → 2020-09-13 | Outpatient (CLI) | payer OTHER, MEDICAID | LOC: M RAD 14:27 | PROVIDERS: ATTEND Thoracic Surgery (Cardiothoracic Vascular Surgery) | DX: Z53.9 Procedure and treatment not carried out, unspecified reason (principal); J84.112 Idiopathic pulmonary fibrosis ==

== ENCOUNTER 2020-09-17 06:38 | Inpatient (IN) | payer OTHER, MEDICAID ==
[~2020-09-17] VITALS: Ht 154.9 cm; Wt 70.4 kg
[2020-09-17] VITALS (7 sets, daily range): BP systolic 100–161; BP diastolic 54–77; O2SAT 97
[~2020-09-17 06:38] MED LIST changes: +LIDOCAINE 1% MDV 20ML VIAL SQ PRN
[2020-09-17] MEDS ORDERED: ceFAZolin SOD 2 GM in IV 1 EA IV ONE ×2 (07:00→08:00)
[2020-09-17] MEDS ORDERED: LR 1,000 ML IV ONE (07:00)
[2020-09-17] MEDS ORDERED: MUPIROCIN 2% OINT 22 GM TUBE TOP ONE (07:00)
[2020-09-17 07:26] LABS: HEMATOCRIT 44.2 % (36.0-47.0); HEMOGLOBIN 13.6 g/dl (12.0-15.5); MEAN CORPUSCULAR HEMOGLOBIN 30.3 pg (27.0-33.0); MEAN CORPUSCULAR HGB CONC 30.8 g/dl (32.0-36.5); MEAN CORPUSCULAR VOLUME 98.4 fl (80.0-96.0); RED BLOOD COUNT 4.49 10^6/uL (4.00-5.40); WHITE BLOOD COUNT 2.9 10^3/uL (4.0-10.0)
[2020-09-17 07:28] LABS: PLATELET COUNT, AUTOMATED 59 10^3/uL (150-450)
[2020-09-17] MEDS ORDERED: ROCURONIUM BROMIDE 50 MG/5 ML VIAL As Ordered ONE ×2 (08:27→10:17)
[2020-09-17] MEDS ORDERED: propofoL 200 MG/20 ML VIAL As Ordered ONE (08:27)
[2020-09-17] MEDS ORDERED: LIDOCAINE 2% 100MG/5ML SDV (FOR ANES.) As Ordered ONE (08:27)
[2020-09-17] MEDS ORDERED: MIDAZOLAM INJ 2MG/2ML VIAL (J2250 PER 1MG) As Ordered ONE (08:28)
[2020-09-17] MEDS ORDERED: fentaNYL 250 MCG/5 ML INJECTION (J3010) As Ordered ONE (08:28)
[2020-09-17] MEDS ORDERED: BUPIVACAINE HCL 0.5% 10ML VIAL As Ordered ONE (08:59)
[2020-09-17] MEDS ORDERED: MUPIROCIN 2% OINT 22 GM TUBE As Ordered ONE (08:59)
[2020-09-17] MEDS ORDERED: CETACAINE SPRAY 5GM As Ordered ONE (08:59)
[2020-09-17] MEDS ORDERED: BUPIVACAINE LIPOSOME/PF 1.3% 20ML VIAL (13.3MG/ML)(EXPAREL)(C9290 PER1MG) As Ordered ONE ×2 (08:59→10:15)
[2020-09-17] MEDS ORDERED: PANTOPRAZOLE 40MG VIAL (C9113 PER 1) IV SCH (09:00)
[2020-09-17] MEDS ORDERED: dexameTHASONE 4 MG/ML 1ML VIAL (J1100 PER 1MG) As Ordered ONE (09:31)
[2020-09-17] MEDS ORDERED: PHENYLephrine 500MCG 5ML (100MCG/ML) SYRINGE As Ordered ONE (09:37)
[2020-09-17] MEDS ORDERED: ACETAMINOPHEN 1000MG 100ML IV BTL (OFIRMEV) (J0131 PER 10MG) As Ordered ONE (10:23)
[2020-09-17] MEDS ORDERED: HYDROmorphone HCL 2 MG/ML 1ML VIAL (J1170) As Ordered ONE (10:23)
[2020-09-17] MEDS ORDERED: ONDANSETRON 4MG/2ML VIAL As Ordered ONE (10:36)
[2020-09-17] MEDS ORDERED: METOCLOPRAMIDE INJ 10MG/2ML VIAL (J2765 PER 1) As Ordered ONE (10:36)
[2020-09-17] MEDS ORDERED: SUGAMMADEX SODIUM 500 MG/5 ML VIAL (BRIDION) As Ordered ONE (10:36)
[2020-09-17] MEDS ORDERED: ONDANSETRON 4MG/2ML VIAL IV PRN ×3 (11:05→12:10)
[2020-09-17] MEDS ORDERED: LEVALBUTEROL 1.25 MG/0.5 ML CONCENTRATE NEB NEB PRN (11:05)
[2020-09-17] MEDS ORDERED: DEXTROSE 50% 50 ML SYRINGE IV PRN (11:05)
[2020-09-17] MEDS ORDERED: NORCO, ANEXSIA 5/325MG TABLET (HYDROcodone/ACETAMINOPHEN) PO PRN (11:05)
[2020-09-17] MEDS ORDERED: SODIUM CHLORIDE NASAL 0.65% SPRAY BTL (OCEAN) PRN (11:05)
[2020-09-17] MEDS ORDERED: GLUCAGON INJ 1MG VIAL SC PRN (11:05)
[2020-09-17] MEDS ORDERED: ACETAMINOPHEN TAB 650MG DOSE (2X325MG) PO PRN (11:05)
[2020-09-17] MEDS ORDERED: PERCOCET 5MG/325MG TAB PO PRN (11:05)
[2020-09-17] MEDS ORDERED: GLUCOSE 4GM CHEW TABLET PO PRN (11:05)
[2020-09-17] MEDS ORDERED: BISACODYL 10 MG SUPP PR PRN (11:05)
[2020-09-17 11:36] LABS: ABG BASE EXCESS -5.9 (-2.0-2.0); ABG HCO3 22.3 MEQ/L (22.0-26.0); ABG O2 SATURATION 88.5 % (95.0-99.0); ABG PARTIAL PRESSURE CO2 55.1 mmHg (35.0-45.0); ABG PARTIAL PRESSURE O2 64.8 mmHg (75.0-100.0); ABG STANDARD HCO3 19.5 MEQ/L (22.0-26.0)
[2020-09-17 11:40] LABS: ABG pH (ARTERIAL) 7.225 UNITS (7.350-7.450)
[2020-09-17] MEDS ORDERED: SODIUM BICARBONATE 8.4% INJ 50 ML SYRINGE IV STA (11:42)
--- NOTE | 2020-09-17 11:44 | RO ---
OPERATIVE NOTE DATE OF OPERATION: 09/17/2020 PREOPERATIVE DIAGNOSIS: Interstitial lung disease of unknown origin. POSTOPERATIVE DIAGNOSIS: Interstitial lung disease of unknown origin. PROCEDURE: Multiple wedge resections to right upper, right middle, and apical basal segment of the right lower and medial basal segment of right lower lobe using VATS techniques, five-level rib block, and bronchoscopy. SURGEON: Brock Duarte M.D. MATTING PRESS TENDER: None. ANESTHESIA: General. FINDINGS: Revealed a normal branching tracheobronchial tree with increased mucous. Mucous was suction aspirated. Each segment and subsegment was thoroughly inspected and there were no endobronchial lesions. The VATS procedure showed a cobblestoned lung. It was also contracted. Wedge resections were taken of the right upper, right middle, and apical basal segment of the right lower and medial basal segment of the right lower lobe. All were sent for pathological examination for permanent section. DESCRIPTION OF PROCEDURE: Under satisfactory general anesthesia, without an epidural as she was thrombocytopenic secondary to underlying cirrhosis, the patient was prepped and draped. Bronchoscope was placed into the tracheobronchial tree. The above findings were noted. Bronchial segments were suction aspirated and then thoroughly inspected. There were no endobronchial lesions seen. The patient was then turned into the left lateral decubitus position after being intubated with a double-lumen endotracheal tube and positioned with bronchoscopy. After turning, the endotracheal tube was again positioned and was checked. The patient was then prepped and draped in the usual sterile fashion. An initial thoracostomy incision was made in and around the seventh rib into the sixth intercostal space. A 5-mm port was placed and the thoracoscope was inserted. The above findings were noted. Port placement was then planned with a 12-mm port posteriorly and another 5-mm port anteriorly. The right middle lobe segment was then ceased with a grasper and a wedge resection was undertaken with an Goodrich 4.8 stapler. This was placed into an Endo Catch bag and delivered to the operative field for pathologic examination. Likewise, the right upper lobe was ceased with a grasper and another wedge resection was undertaken with an Goodrich 4.8 stapler. This too was placed into an Endo Catch bag and delivered to the operative field. The medial basilar segment of the right lower lobe was then grasped with a grasper and another wedge resection with a 4.8 Goodrich stapler was undertaken. This too was placed into an Endo Catch bag and delivered to the operative field. Lastly, the apical basilar segment of the right lower lobe was ceased with a grasper, elevated, and a wedge resection undertaken with an Goodrich 4.8 stapler. Two chest tubes were placed with one posteriorly as a curved #24 tube and one anteriorly as a straight #24 tube through two of the VATS incisions. Five-level rib block was then accomplished with Exparel beneath each rib. The VATS incisions where the chest tubes were placed were then infiltrated with Exparel and marcaine solution. The 12-mm port incision was then closed with running 0-Vicryl suture for the extrathoracic muscles, running 3-0 Vicryl suture for the subcutaneous tissue, and running 4-0 Monocryl subcuticular suture for the skin. Prior to final closure, Exparel was also instilled into the 12-mm port wound. The patient tolerated the procedure well and left the operating room in satisfactory condition to the recovery room.
[2020-09-17] MEDS ORDERED: SODIUM BICARBONATE 8.4% INJ 50 ML SYRINGE As Ordered ONE (11:45)
[2020-09-17 11:46] LABS: BASO % 0.3 % (0.0-1.0); EOS # 0.1 10^3/uL (0.0-0.5); EOS % 1.3 % (0.0-3.0); HEMATOCRIT 44.3 % (36.0-47.0); HEMOGLOBIN 13.5 g/dl (12.0-15.5); LYMPH # 1.2 10^3/uL (1.5-5.0); LYMPH % 33.2 % (24.0-44.0); MEAN CORPUSCULAR HEMOGLOBIN 29.9 pg (27.0-33.0); MEAN CORPUSCULAR HGB CONC 30.5 g/dl (32.0-36.5); MONO # 0.1 10^3/uL (0.0-0.8); MONO % 3.7 % (2.0-8.0); NEUTROPHILS # 2.2 10^3/uL (1.5-8.5); NEUTROPHILS % 59.9 % (36.0-66.0); RED BLOOD COUNT 4.52 10^6/uL (4.00-5.40); WHITE BLOOD COUNT 3.7 10^3/uL (4.0-10.0)
[2020-09-17 11:49] LABS: PLATELET COUNT, AUTOMATED 62 10^3/uL (150-450)
[2020-09-17] MEDS ORDERED: fentaNYL 100 MCG/2 ML INJECTION (J3010) As Ordered ONE (11:52)
[2020-09-17] MEDS: fentaNYL 100 MCG/2 ML INJECTION (J3010) IV PRN ×4 (11:55→12:20)
--- NOTE | 2020-09-17 11:58 | REP ---
INDICATION: pulmonary fibrosis. COMPARISON: Comparison preoperative chest x-ray September 13, 2020. TECHNIQUE: Portable upright AP chest radiograph. FINDINGS: There are 2 right-sided chest tubes noted in place. There is a ill-defined oval-shaped area of pulmonary parenchymal opacity in the right mid lung zone adjacent to the chest tubes which may be a biopsy site with localized hemorrhage or some focal pleural thickening. There is no evidence of pneumothorax. Interstitial markings remain diffusely prominent bilaterally. There are clips in right upper quadrant of the abdomen.. IMPRESSION: Two right chest tubes. Postoperative changes on the right. Oval-shaped opacity right mid lung zone question localized fluid or parenchymal hemorrhage.. <Electronically signed by Pancho Hale > 09/17/20 2543
[2020-09-17] MEDS ORDERED: diphenhydrAMINE 50MG/ML VIAL (J1200) IV PRN (12:00)
[2020-09-17] MEDS ORDERED: MORPHINE 1MG/ML IN 0.9% NACL 100ML IV BAG IV PRN (12:00)
[2020-09-17] MEDS: HumaLOG INSULIN (NovoLOG) PER UNIT SC SCH ×2 (12:00→17:41)
[2020-09-17] MEDS ORDERED: NALOXONE INJ 0.4MG/1ML VIAL (J2310 PER 1MG) IV PRN (12:00)
[2020-09-17] MEDS ORDERED: NS 1,000 ML IV SCH (12:00)
[2020-09-17] MEDS ORDERED: EPIDURAL/PCA KEYS XX PRN (12:00)
[2020-09-17] MEDS ORDERED: LABETALOL 100MG/20ML VIAL As Ordered ONE (12:02)
[2020-09-17 12:08] LABS: BLOOD UREA NITROGEN 14 MG/DL (7-18); CALCIUM LEVEL 9.2 MG/DL (8.5-10.1); CARBON DIOXIDE LEVEL 26 MEQ/L (21-32); CHLORIDE LEVEL 105 MEQ/L (98-107); CREATININE FOR GFR 0.54 MG/DL (0.55-1.30); GLOMERULAR FILTRATION RATE > 60.0 (>51); GLUCOSE, FASTING 181 MG/DL (70-100); POTASSIUM SERUM 4.2 MEQ/L (3.5-5.1); SODIUM LEVEL 137 MEQ/L (136-145)
[2020-09-17] MEDS ORDERED: LR 1,000 ML IV SCH (12:10)
[2020-09-17] MEDS ORDERED: oxyCODONE 5MG TAB PO PRN (12:10)
[2020-09-17] MEDS: KCL 20MEQ IN D5/NS 1000ML 1,000 ML IV SCH (12:18)
[2020-09-17] MEDS ORDERED: LABETALOL 100MG/20ML VIAL IV PRN (12:20)
[2020-09-17] MEDS: KETOROLAC 30 MG/ML 1ML VIAL IV SCH ×2 (12:35→17:41)
[2020-09-17 12:48] LABS: ABG BASE EXCESS -2.6 (-2.0-2.0); ABG HCO3 24.5 MEQ/L (22.0-26.0); ABG O2 LITER FLOW 2; ABG PARTIAL PRESSURE CO2 51.7 mmHg (35.0-45.0); ABG PARTIAL PRESSURE O2 72.3 mmHg (75.0-100.0); ABG STANDARD HCO3 22.2 MEQ/L (22.0-26.0); ABG TOTAL CO2 26.1 MEQ/L (22.0-29.0); ABG pH (ARTERIAL) 7.293 UNITS (7.350-7.450)
[2020-09-17] MEDS: LEVALBUTEROL 1.25 MG/0.5 ML CONCENTRATE NEB NEB SCH ×2 (15:18→20:35)
[2020-09-17] MEDS ORDERED: HumaLOG INSULIN (NovoLOG) PER UNIT SC SCH (17:30)
[2020-09-17] MEDS: ceFAZolin SOD 1 GM in D5W MINI-BAG PLUS 50 ML IV SCH (17:41)
[2020-09-17] MEDS ORDERED: HEPARIN SOD (PORCINE) 5000UNITS/ML 1ML VIAL/SYRINGE SC SCH (21:00)
[2020-09-17] MEDS: LEVEMIR (INSULIN DETEMIR) 1 UNITS/0.01ML SC SCH (21:05)
[2020-09-17] MEDS: DOCUSATE SODIUM 100MG CAPSULE PO SCH (21:06)
[2020-09-17] MEDS: CETIRIZINE (ZyrTEC) 10 MG TAB PO SCH (21:06)
[2020-09-18] VITALS (8 sets, daily range): BP systolic 93–156; BP diastolic 47–77; O2SAT 97
[2020-09-18] MEDS: KETOROLAC 30 MG/ML 1ML VIAL IV SCH ×4 (01:04→18:49)
[2020-09-18] MEDS: HumaLOG INSULIN (NovoLOG) PER UNIT SC SCH ×6 (01:05→21:57)
[2020-09-18] MEDS: ceFAZolin SOD 1 GM in D5W MINI-BAG PLUS 50 ML IV SCH ×3 (01:09→18:50)
[2020-09-18] MEDS: LEVALBUTEROL 1.25 MG/0.5 ML CONCENTRATE NEB NEB SCH ×4 (01:13→19:29)
[2020-09-18] MEDS: KCL 20MEQ IN D5/NS 1000ML 1,000 ML IV SCH (02:01)
[2020-09-18 05:45] LABS: ABG BASE EXCESS -2.4 (-2.0-2.0); ABG HCO3 22.5 MEQ/L (22.0-26.0); ABG O2 SATURATION 99.7 % (95.0-99.0); ABG PARTIAL PRESSURE CO2 39.6 mmHg (35.0-45.0); ABG PARTIAL PRESSURE O2 226.6 mmHg (75.0-100.0); ABG STANDARD HCO3 22.5 MEQ/L (22.0-26.0); ABG TOTAL CO2 23.7 MEQ/L (22.0-29.0); ABG pH (ARTERIAL) 7.373 UNITS (7.350-7.450)
[2020-09-18 05:55] LABS: HEMATOCRIT 36.1 % (36.0-47.0); LYMPH # 0.3 10^3/uL (1.5-5.0); LYMPH % 9.2 % (24.0-44.0); MEAN CORPUSCULAR HEMOGLOBIN 30.4 pg (27.0-33.0); MEAN CORPUSCULAR HGB CONC 30.7 g/dl (32.0-36.5); MEAN CORPUSCULAR VOLUME 98.9 fl (80.0-96.0); MONO # 0.2 10^3/uL (0.0-0.8); MONO % 5.2 % (2.0-8.0); NEUTROPHILS # 2.8 10^3/uL (1.5-8.5); RED BLOOD COUNT 3.65 10^6/uL (4.00-5.40); WHITE BLOOD COUNT 3.3 10^3/uL (4.0-10.0)
[2020-09-18 05:58] LABS: HEMOGLOBIN 11.1 g/dl (12.0-15.5); PLATELET COUNT, AUTOMATED 48 10^3/uL (150-450)
[2020-09-18 06:18] LABS: BLOOD UREA NITROGEN 15 MG/DL (7-18); CALCIUM LEVEL 8.5 MG/DL (8.5-10.1); CARBON DIOXIDE LEVEL 27 MEQ/L (21-32); CHLORIDE LEVEL 110 MEQ/L (98-107); CREATININE FOR GFR 0.52 MG/DL (0.55-1.30); GLOMERULAR FILTRATION RATE > 60.0 (>51); GLUCOSE, FASTING 189 MG/DL (70-100); POTASSIUM SERUM 4.6 MEQ/L (3.5-5.1); SODIUM LEVEL 140 MEQ/L (136-145)
--- NOTE | 2020-09-18 08:42 | REP ---
INDICATION: pulmonary fibrosis. COMPARISON: Comparison chest x-ray September 17, 2020. TECHNIQUE: PA and lateral views... FINDINGS: Two right-sided chest tubes remain in place. Improvement is noted in the right peripheral parenchymal opacity seen on yesterday's radiograph. No new infiltrate is seen. There is no evidence of pneumothorax or hydrothorax. There are surgical clips in right upper quadrant the abdomen. Interstitial markings remain diffusely prominent. IMPRESSION: Two right chest tubes in place. Post thoracotomy changes. Improved parenchymal opacity on the right.. <Electronically signed by Pancho Hlae > 09/18/20 0809
[2020-09-18] MEDS ORDERED: FUROSEMIDE 40MG/4ML VIAL (J1940) IV ONE (09:00)
[2020-09-18] MEDS: MOM 30ML SUSPENSION UDC PO SCH (09:53)
[2020-09-18] MEDS: DOCUSATE SODIUM 100MG CAPSULE PO SCH ×2 (09:53→21:56)
[2020-09-18] MEDS: PANTOPRAZOLE 40MG TAB (PROTONIX) PO SCH (09:53)
[2020-09-18] MEDS: FOLIC ACID 1 MG TAB PO SCH (09:53)
[2020-09-18] MEDS: VITAMIN D 1,000 INTERNATIONAL UNITS TABLET PO SCH (09:53)
[2020-09-18] MEDS: THIAMINE 100 MG TAB PO SCH (09:54)
[2020-09-18] MEDS: MULTIVITAMINS/MINERALS THERAP 1 TAB PO SCH (09:56)
--- NOTE | 2020-09-18 12:37 | IPN ---
PROGRESS NOTE DATE: 09/18/2020 This is now the first postoperative day for Mrs. Cruz, who has had a stable 24 hours and a stable night of surgery. 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 Her vital signs show a maximum temperature of 98.8 with a heart rate that ranges between 64-81 in a sinus rhythm, respiratory rate of 18-19 without the use of accessory muscles, who is 97% saturated on 2 liters nasal cannula and whose blood pressure is ranging between 119/56 to 93/51. She has taken in 1520 mL for a total output of 1830 mL, for a negativity of 310 mL. She has put 130 mL out of the chest tube, and there is no air leak. Nothing out of the chest tube in the last 8 hours. Weight today is 72 kg compared to 73.7 kg yesterday. PHYSICAL EXAMINATION: She has fine crackles on either side at the bases. Cardiac exam is without murmurs, clicks, gallops, or rubs. I cannot feel her point of maximal impulse (PMI). S1 and S2 are normal. Abdomen is soft but tympanitic and slightly distended. Her bowel sounds are hypoactive but present. There is no costovertebral angle (CVA) tenderness. No hepatomegaly that I can appreciate. She has not passed flatus yet. Extremities show trace pretibial edema. No calf tenderness, no differential swelling of the upper extremities. Skin is warm, dry, and perfused without cyanosis or mottling, including that of the nailbeds and knees. Neck is supple. There is no jugular venous distention. No subcutaneous emphysema. Trachea is midline. Mouth shows the mucous membranes to be pink and moist. Lips and commissures without lesions. No thrush. Eyes show her pupils to be equal and reactive. Extraocular motion intact. Sclerae anicteric. Neurologic shows II-XII intact. Normal gross motor, gross sensation intact. Gait is not tested. Psychiatric shows her to be awake, alert, and oriented times three with appropriate mood and affect and conversational. Her white count today is 3.3 with a hemoglobin and hematocrit of 11.1 and 36.1, respectively, down from 13.5 and 44.3 yesterday in the recovery room. Platelet count is 48, down from 62 yesterday. Differential shows 85% neutrophils, 9% lymphocytes, 5% monocytes. There are no immature forms or toxic granulations. Her electrolytes are normal today with a BUN and creatinine of 15 and 0.52, a glucose of 189, and a calcium of 8.5. Her chest x-ray shows her lung fully expanded to the chest wall. She has a reticular pattern consistent with her interstitial lung disease. I see no other infiltrates. IMPRESSION: 1. Postoperative day #1 status post multiple wedge resections for diagnosis. 2. Intersitial lung disease, unknown type and etiology. 3. Cirrhosis secondary to nonalcoholic steatohepatitis. 4. Thrombocytopenia secondary to the cirrhosis. 5. Splenomegaly. PLAN AND DISCUSSION: I will discontinue her chest tube suction today. I will also discontinue her heparin, and I will also diurese her. I will transfer her to the progressive care unit (PCU).
[2020-09-18] MEDS: PERCOCET 5MG/325MG TAB PO PRN (16:37)
[2020-09-18] MEDS ORDERED: SLF 3 ML SYR IV PRN (17:30)
[2020-09-18] MEDS: CETIRIZINE (ZyrTEC) 10 MG TAB PO SCH (21:56)
[2020-09-18] MEDS: LEVEMIR (INSULIN DETEMIR) 1 UNITS/0.01ML SC SCH (21:58)
[2020-09-18] MEDS: SLF 3 ML SYR IV SCH (22:00)
[2020-09-19 00:04] VITALS: BP 138/67
[2020-09-19] MEDS: KETOROLAC 30 MG/ML 1ML VIAL IV SCH ×4 (00:29→17:30)
[2020-09-19] MEDS: LEVALBUTEROL 1.25 MG/0.5 ML CONCENTRATE NEB NEB SCH ×4 (01:03→18:26)
[2020-09-19] MEDS: ceFAZolin SOD 1 GM in D5W MINI-BAG PLUS 50 ML IV SCH ×2 (02:37→09:03)
[2020-09-19 04:00] VITALS: BP 139/66
[2020-09-19] MEDS: SLF 3 ML SYR IV SCH ×3 (06:13→21:23)
[2020-09-19 06:32] LABS: BASO % 0.4 % (0.0-1.0); EOS % 0.9 % (0.0-3.0); HEMATOCRIT 35.3 % (36.0-47.0); HEMOGLOBIN 10.7 g/dl (12.0-15.5); LYMPH # 0.4 10^3/uL (1.5-5.0); LYMPH % 19.2 % (24.0-44.0); MEAN CORPUSCULAR HEMOGLOBIN 30.7 pg (27.0-33.0); MEAN CORPUSCULAR HGB CONC 30.3 g/dl (32.0-36.5); MEAN CORPUSCULAR VOLUME 101.1 fl (80.0-96.0); MONO # 0.2 10^3/uL (0.0-0.8); MONO % 6.6 % (2.0-8.0); NEUTROPHILS # 1.7 10^3/uL (1.5-8.5); NEUTROPHILS % 72.5 % (36.0-66.0); RED BLOOD COUNT 3.49 10^6/uL (4.00-5.40); WHITE BLOOD COUNT 2.3 10^3/uL (4.0-10.0)
[2020-09-19 06:38] LABS: PLATELET COUNT, AUTOMATED 43 10^3/uL (150-450)
[2020-09-19 06:51] LABS: BLOOD UREA NITROGEN 19 MG/DL (7-18); CALCIUM LEVEL 8.5 MG/DL (8.5-10.1); CARBON DIOXIDE LEVEL 30 MEQ/L (21-32); CHLORIDE LEVEL 108 MEQ/L (98-107); CREATININE FOR GFR 0.44 MG/DL (0.55-1.30); GLOMERULAR FILTRATION RATE > 60.0 (>51); GLUCOSE, FASTING 178 MG/DL (70-100); POTASSIUM SERUM 4.3 MEQ/L (3.5-5.1); SODIUM LEVEL 141 MEQ/L (136-145)
[2020-09-19 08:00] VITALS: BP 111/55
--- NOTE | 2020-09-19 08:25 | REP ---
INDICATION: pulmonary fibrosis. COMPARISON: Comparison chest x-ray September 18, 2020. TECHNIQUE: Two views.. FINDINGS: Two right-sided chest tubes remain in place. There is no evidence of pneumothorax or hydrothorax. Interstitial markings remain prominent bilaterally. No new infiltrate is seen. Cardiomediastinal silhouette is unremarkable and unchanged. IMPRESSION: Two right chest tubes remain in place. Interstitial fibrosis pattern again seen.. <Electronically signed by Pancho Hale > 09/19/20 [id number]
[2020-09-19] MEDS: MOM 30ML SUSPENSION UDC PO SCH (09:00)
[2020-09-19] MEDS: MULTIVITAMINS/MINERALS THERAP 1 TAB PO SCH (09:01)
[2020-09-19] MEDS: HumaLOG INSULIN (NovoLOG) PER UNIT SC SCH ×4 (09:01→21:22)
[2020-09-19] MEDS: FOLIC ACID 1 MG TAB PO SCH (09:01)
[2020-09-19] MEDS: DOCUSATE SODIUM 100MG CAPSULE PO SCH ×2 (09:02→21:21)
[2020-09-19] MEDS: THIAMINE 100 MG TAB PO SCH (09:02)
[2020-09-19] MEDS: VITAMIN D 1,000 INTERNATIONAL UNITS TABLET PO SCH (09:02)
[2020-09-19] MEDS: PERCOCET 5MG/325MG TAB PO PRN ×2 (09:03→19:04)
[2020-09-19] MEDS ORDERED: FUROSEMIDE 40MG/4ML VIAL (J1940) IV ONE (11:00)
[2020-09-19 12:00] VITALS: BP 137/66
--- NOTE | 2020-09-19 12:31 | IPN ---
PROGRESS NOTE DATE: 09/19/2020 SUBJECTIVE: This is now the second postoperative day for Ms. Cruz and she is doing quite well. Her pain is being well-controlled by oral medications. She has no air leak and there is minimal output via the chest tube. OBJECTIVE: VITAL SIGNS: Show a T-max of 97.3 with a heart rate that ranges between 76 and 103 in sinus rhythm. Respiratory rate of 16 to 21 without the use of accessory muscles who is 86% to 99% saturated 2 liters nasal cannula and whose blood pressure is ranging between 139/66 to 111/55. INTAKE AND OUTPUT: Over the past 24 hours has been recorded as 2198 in and 2344 out for a negativity of 150 mL. She has put 54 mL out the chest tube and there is no air leak. She weighs 73.1 kg today compared to 72 kg yesterday. She has put out 2290 mL in urine output. RESPIRATORY: She has rales and rhonchi throughout both lungs with the right greater than left. Percussion notes are full to the diaphragm. CARDIAC: Without murmurs, clicks, gallops, or rubs. I cannot feel her PMI. S1 and S2 are normal. ABDOMEN: Soft and nontender. Bowel sounds are positive. There is no hepatomegaly. No CVA tenderness. She is having flatus, but she has not yet had a bowel movement. EXTREMITIES: Show trace pretibial edema. No calf tenderness. No differential swelling of the upper extremities. SKIN: Warm, dry, and perfused without cyanosis or mottling, including that of the nail beds and knees. NECK: Supple. There is no jugular venous distention. No subcutaneous emphysema. Trachea is midline. MOUTH: Shows the mucous membranes to be pink and moist. Lips and commisures are without lesions and no thrush. EYES: Show her pupils equal and reactive. Extraocular muscles are intact. Sclerae nonicteric. NEUROLOGIC: Shows II through XII intact. Normal gross motor, gross sensation intact. Gait is also intact. PSYCHIATRIC: Shows her to be awake, alert, and oriented x3 with appropriate mood and affect and conversational. LABORATORY DATA: Her white count today is 2.3 with hemoglobin and hematocrit of 10.7 and 35.3 respectively. Platelet count is 43 down from 48 yesterday. Differential shows 72% neutrophils, 19% lymphocytes, and 6% monocytes. There are no immature forms and no toxic granulations. Her electrolytes are normal with a BUN and creatinine of 19 and 0.44 with a glucose of 178 and a calcium of 8.5. IMAGING DATA: Her chest x-ray shows her lungs fully expand to the chest wall. Costophrenic angles are sharp. She has the diffuse reticular infiltrative pattern consistent with her interstitial lung disease. I see no overt infiltrates on the lateral film. IMPRESSION: 1. Postoperative day #2 status post multiple wedge resections. 2. Interstitial lung disease of unknown etiology. 3. Cirrhosis secondary to nonalcoholic steatohepatitis. 4. Thrombocytopenia secondary to cirrhosis. 5. Splenomegaly with portal hypertension. PLAN AND DISCUSSION: I will discontinue her chest tubes today. I will again diurese her today. I discontinued her heparin yesterday. I do note that both her white count and H&H are falling, as well as her platelet count. Her thrombocytopenia has been thought to be secondary to her cirrhosis, but she is tending towards pancytopenia. I will closely watch this and ask hematology to see her probably as an outpatient.
[2020-09-19 16:00] VITALS: BP 125/67
[2020-09-19 20:00] VITALS: BP 132/77
[2020-09-19] MEDS: CETIRIZINE (ZyrTEC) 10 MG TAB PO SCH (21:21)
[2020-09-19] MEDS: LEVEMIR (INSULIN DETEMIR) 1 UNITS/0.01ML SC SCH (21:23)
[2020-09-20] VITALS: BP 114/68
[2020-09-20] MEDS: KETOROLAC 30 MG/ML 1ML VIAL IV SCH ×3 (00:11→12:20)
[2020-09-20] MEDS: LEVALBUTEROL 1.25 MG/0.5 ML CONCENTRATE NEB NEB SCH ×2 (01:00→07:48)
[2020-09-20 04:00] VITALS: BP 109/55
[2020-09-20 06:01] LABS: EOS % 1.1 % (0.0-3.0); HEMATOCRIT 38.8 % (36.0-47.0); HEMOGLOBIN 11.6 g/dl (12.0-15.5); LYMPH # 0.5 10^3/uL (1.5-5.0); LYMPH % 29.9 % (24.0-44.0); MEAN CORPUSCULAR HEMOGLOBIN 29.6 pg (27.0-33.0); MEAN CORPUSCULAR HGB CONC 29.9 g/dl (32.0-36.5); MONO # 0.1 10^3/uL (0.0-0.8); MONO % 7.3 % (2.0-8.0); NEUTROPHILS # 1.1 10^3/uL (1.5-8.5); NEUTROPHILS % 61.1 % (36.0-66.0); RED BLOOD COUNT 3.92 10^6/uL (4.00-5.40); WHITE BLOOD COUNT 1.8 10^3/uL (4.0-10.0)
[2020-09-20 06:05] LABS: PLATELET COUNT, AUTOMATED 45 10^3/uL (150-450)
[2020-09-20 06:20] LABS: BLOOD UREA NITROGEN 14 MG/DL (7-18); CALCIUM LEVEL 9.1 MG/DL (8.5-10.1); CARBON DIOXIDE LEVEL 30 MEQ/L (21-32); CHLORIDE LEVEL 105 MEQ/L (98-107); CREATININE FOR GFR 0.49 MG/DL (0.55-1.30); GLOMERULAR FILTRATION RATE > 60.0 (>51); GLUCOSE, FASTING 198 MG/DL (70-100); POTASSIUM SERUM 4.3 MEQ/L (3.5-5.1); SODIUM LEVEL 138 MEQ/L (136-145)
[2020-09-20] MEDS: SLF 3 ML SYR IV SCH ×2 (06:20→12:21)
[2020-09-20 08:00] VITALS: BP 139/70
--- NOTE | 2020-09-20 08:18 | REP ---
INDICATION: pulmonary fibrosis. COMPARISON: Comparison chest x-ray September 19, 2020. TECHNIQUE: Two views.. FINDINGS: In the interval since yesterday's radiograph, the 2 right-sided chest tubes have been removed. There is no evidence of pneumothorax. There is a small quantity of extra thoracic soft tissue air along the right chest wall. Diffuse interstitial lung disease changes persist. There is an ill-defined opacity in the right mid lung zone consistent with a pleuroparenchymal reaction at biopsy site. There are lung sutures in this region. The pleural angles are sharp. No other focal consolidation is appreciated. IMPRESSION: Postoperative changes. Patient is status post chest tube withdrawal.. <Electronically signed by Pnacho Hale > 09/20/20 [id number]
[2020-09-20] MEDS: HumaLOG INSULIN (NovoLOG) PER UNIT SC SCH ×2 (09:03→12:21)
[2020-09-20] MEDS: MOM 30ML SUSPENSION UDC PO SCH (09:03)
[2020-09-20] MEDS: THIAMINE 100 MG TAB PO SCH (09:04)
[2020-09-20] MEDS: VITAMIN D 1,000 INTERNATIONAL UNITS TABLET PO SCH (09:04)
[2020-09-20] MEDS: PERCOCET 5MG/325MG TAB PO PRN (09:04)
[2020-09-20] MEDS: PANTOPRAZOLE 40MG TAB (PROTONIX) PO SCH (09:04)
[2020-09-20] MEDS: MULTIVITAMINS/MINERALS THERAP 1 TAB PO SCH (09:04)
[2020-09-20] MEDS: DOCUSATE SODIUM 100MG CAPSULE PO SCH (09:04)
[2020-09-20] MEDS: FOLIC ACID 1 MG TAB PO SCH (09:04)
[2020-09-20 12:00] VITALS: BP 145/65
[2020-09-20] MEDS ORDERED: PERCOCET PO (12:47)
--- NOTE | 2020-09-20 18:50 | DSES ---
DISCHARGE SUMMARY DATE OF ADMISSION: 09/17/2020 DATE OF DISCHARGE: 09/20/2020 DISCHARGE DIAGNOSES: 1. Interstitial lung disease. 2. Postop day 3, status post multiple wedge resections for diagnosis. 3. Diabetes. 4. Cirrhosis secondary to nonalcoholic steatohepatitis. 5. Thrombocytopenia secondary to cirrhosis. 6. Splenomegaly with portal hypertension. 7. Leukopenia. HOSPITAL COURSE: The patient is a 55-year-old white female with increasing shortness of breath, whose chest CT show honeycombing, but typically consistent with the diagnosis of idiopathic pulmonary fibrosis. She was therefore taken to the operating room for multiple wedge resections for diagnostic purposes. She had a benign postoperative course. Chest tube is being removed on the 2nd postoperative day. She underwent diuresis with improvement of her hemoglobin and hematocrit from 10.7 and 35.3 to 11.6 and 38.8. She remained thrombocytopenic and pancytopenic with a leukopenia of 1.8 on discharge. She is being worked up by hematology for her thrombocytopenia. She is being discharged home today on her home medications, which include Ventolin 2 puffs q.i.d. as needed for wheezing, calcium carbonate and vitamin D 600 and 400 mg daily, cetrizine 10 mg every night at bedtime, vitamin D3 1000 units daily, Jardiance 10 mg daily, fluconazole spray 2 sprays as needed for congestion, folic acid 5 mg daily, Lantus insulin subcutaneous 30 units q p.m., lispro insulin 10 mg subcutaneous three times a day, probiotic one capsule daily, multivitamins one tab daily, thiamine 100 mg by mouth daily, Percocet 5/325 mg q 4 hours as needed for pain to supplemented by either Aleve [id number] and/or Tylenol. Her chest x-ray shows her lung fully expanded to the chest wall. There is some subcutaneous emphysema where the chest tubes were removed. Her discharge hemoglobin and hematocrit are 11.6 and 38.8 with a white count of 1.8 and a platelet count of 45. She has normal differential. Electrolytes are normal. BUN and creatinine are 14 and 0.49, glucose of 198 and a calcium of 9.1. She will return to see me in one week also with Dr. 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
== END 2020-09-20 15:44 | disposition home or self-care (01) | DRG 164 ==
LOC: M OR 06:38 → M ICU 14:10 → M PCU 09-18 16:57
PROVIDERS: ADMIT Thoracic Surgery (Cardiothoracic Vascular Surgery); ATTEND Thoracic Surgery (Cardiothoracic Vascular Surgery)
PROC: 0BBC4ZX Excision of Right Upper Lung Lobe, Percutaneous Endoscopic Approach, Diagnostic (ICD-10-PCS; 2020-09-17)
PROC: 0BBD4ZX Excision of Right Middle Lung Lobe, Percutaneous Endoscopic Approach, Diagnostic (ICD-10-PCS; 2020-09-17)
PROC: 0BBF4ZZ Excision of Right Lower Lung Lobe, Percutaneous Endoscopic Approach (ICD-10-PCS; principal; 2020-09-17 08:30)
DX: J84.112 Idiopathic pulmonary fibrosis (principal); K76.6 Portal hypertension; D69.6 Thrombocytopenia, unspecified; E10.9 Type 1 diabetes mellitus without complications; K75.81 Nonalcoholic steatohepatitis (NASH); K74.60 Unspecified cirrhosis of liver; D73.2 Chronic congestive splenomegaly; K21.9 Gastro-esophageal reflux disease without esophagitis; Z79.4 Long term (current) use of insulin; E55.9 Vitamin D deficiency, unspecified

== ENCOUNTER → 2020-10-07 | Outpatient (REF) | payer OTHER, MEDICAID ==
[~2020-10-07] MED LIST changes: -LIDOCAINE 1% MDV 20ML VIAL SQ PRN; +PERCOCET PO
== END ==
LOC: M LAB REF 12:17
PROVIDERS: ATTEND Internal Medicine Pulmonary Disease
DX: J67.9 Hypersensitivity pneumonitis due to unspecified organic dust (principal)

== ENCOUNTER → 2020-11-04 | Outpatient (CLI) | payer OTHER, MEDICAID ==
--- NOTE | 2020-11-04 14:17 | REP ---
INDICATION: HYPERSENSITIVITY PNEUMONITIS DUE TO UNSPECIFIED ORGANIC DUST COMPARISON: 09/20/2020. TECHNIQUE: PA/Lateral FINDINGS: The ill-defined density in the right lateral mid lung zone continues to resolve with mild residual. Diffuse interstitial fibrosis is stable. No new infiltrate is seen. Heart and mediastinum are unchanged. There are mild degenerative changes of the spine. IMPRESSION: Ill-defined opacity in the right mid lung zone laterally continues to resolve with minimal residual. Otherwise no new finding. <Electronically signed by Anthony Baez > 11/04/20 1128
== END ==
LOC: M RAD 13:53
PROVIDERS: ATTEND Internal Medicine Pulmonary Disease
DX: J67.9 Hypersensitivity pneumonitis due to unspecified organic dust (principal)

== ENCOUNTER → 2020-11-24 | Outpatient (REF) | payer OTHER, MEDICAID ==
[~2020-11-24] MED LIST changes: +OMEP40CA4 PO; -OMEP40CA97 PO
== END ==
LOC: M SFHCWAGY 13:38
PROVIDERS: ATTEND Nurse Practitioner Women's Health
DX: Z12.4 Encounter for screening for malignant neoplasm of cervix (principal); Z01.419 Encounter for gynecological examination (general) (routine) without abnormal findings

== ENCOUNTER → 2020-11-24 | Outpatient (CLI) | payer OTHER, MEDICAID ==
--- NOTE | 2020-11-24 08:53 | REPMRS ---
Patient History The patient states she had a clinical breast exam in November 2020. No known family history of cancer. Patient states no breast complaints today. Patient has signed MRS History Sheet. Digital Woman Screen Mammo: November 24, 2020 - Exam #: [id number] Bilateral CC and MLO view(s) were taken. Technologist: Carol Ann Trujillo Technologist Prior study comparison: October 29, 2019, bilateral digital woman screen mammo performed at [facility]. October 25, 2018, bilateral digital woman screen mammo performed at [facility]. October 24, 2017, digital woman screen mammo performed at [facility]. FINDINGS: There are scattered fibroglandular densities. The Volpara volumetric breast density category is:B. There has been no change in the appearance of the mammogram from the prior studies. There is a mild amount of scattered fibroglandular density which is fairly symmetric. There is no interval development of dominant mass, architectural distortion, or grouped microcalcification suggestive of malignancy. 3-D tomosynthesis shows no additional findings. Assessment: BI-RADS/ACR category 1 mammogram. Negative Mammogram. Recommendation Routine screening mammogram of both breasts in 1 year (for women over age 40). This patient's [facility] Lifetime Breast Cancer Risk is estimated at 10.1 %. This mammogram was interpreted with the aid of an FDA-approved computer-aided dectection system. Electronically Signed By: Pancho Hale MD 11/24/20 0853
== END ==
LOC: M WHC 07:24
PROVIDERS: ATTEND Nurse Practitioner Women's Health
DX: Z12.31 Encounter for screening mammogram for malignant neoplasm of breast (principal)

== ENCOUNTER → 2020-11-26 | Outpatient (CLI) | payer OTHER, MEDICAID | LOC: M LAB 09:50 | PROVIDERS: ATTEND Nurse Practitioner Family | DX: J84.9 Interstitial pulmonary disease, unspecified (principal) ==

== ENCOUNTER → 2021-02-15 | Outpatient (CLI) | payer OTHER, MEDICAID ==
--- NOTE | 2021-02-15 14:34 | PFTRPT ---
Height: 60.00 Inches Weight: 154.00 Lbs BSA: 1.67 Diagnosis: J67.9 DATE: 02/15/2021 ORDERING PHYSICIAN: Shavon Meas MD Studies have excellent technical quality. Markedly suboptimal patient effort is suspected. Forced vital capacity is severely reduced. FEV1 is in proportion. Obstructive index is therefore normal. Expiratory limit of the flow-volume loop does suggest a restrictive impairment although reproducibility was not able to be obtained. Total lung capacity is severely reduced. The patient was unable to perform plethysmography maneuvers adequately and diffusing capacity measurements were not able to be made. Airway resistance and conductance did appear normal however. IMPRESSION: Cannot rule out a severe restrictive ventilatory defect. Difficulty with the required maneuvers hampers data acquisition. MTDD
== END ==
LOC: M CARPUL 13:40
PROVIDERS: ATTEND Internal Medicine Pulmonary Disease
DX: J67.9 Hypersensitivity pneumonitis due to unspecified organic dust (principal)

== ENCOUNTER → 2021-03-04 | Outpatient (CLI) | payer OTHER, MEDICAID ==
[2021-03-04 17:45] LABS: IMMUNOGLOBULIN M 97.6 MG/DL (40-230)
== END ==
LOC: M LAB 16:11
PROVIDERS: ATTEND Internal Medicine Pulmonary Disease
DX: J67.9 Hypersensitivity pneumonitis due to unspecified organic dust (principal)

== ENCOUNTER → 2021-05-02 | Outpatient (CLI) | payer OTHER, MEDICAID ==
[~2021-05-02] MED LIST changes: +ALBU8.5H INH; +ALBU83IN INH; +METH8TAB4 PO; -MONT10TA10 PO; +MONT10TA97 PO; +OMEP40CA5 PO
[2021-05-02 16:47] LABS: BASO % 0.3 % (0.0-1.0); HEMATOCRIT 45.6 % (36.0-47.0); LYMPH # 0.5 10^3/uL (1.5-5.0); LYMPH % 13.7 % (24.0-44.0); MEAN CORPUSCULAR HEMOGLOBIN 30.7 pg (27.0-33.0); MEAN CORPUSCULAR HGB CONC 30.7 g/dl (32.0-36.5); MONO # 0.1 10^3/uL (0.0-0.8); MONO % 2.9 % (2.0-8.0); NEUTROPHILS # 2.8 10^3/uL (1.5-8.5); NEUTROPHILS % 81.1 % (36.0-66.0); RED BLOOD COUNT 4.56 10^6/uL (4.00-5.40); WHITE BLOOD COUNT 3.4 10^3/uL (4.0-10.0)
[2021-05-02 16:54] LABS: INR 1.12; PROTHROMBIN TIME 14.8 SECONDS (12.7-14.5)
[2021-05-02 16:56] LABS: PLATELET COUNT, AUTOMATED 84 10^3/uL (150-450)
[2021-05-02 17:19] LABS: ALBUMIN 3.4 GM/DL (3.2-5.2); ALT/SGPT 45 U/L (12-78); BILIRUBIN,TOTAL 0.4 MG/DL (0.2-1.0); BLOOD UREA NITROGEN 17 MG/DL (7-18); CALCIUM LEVEL 8.8 MG/DL (8.5-10.1); CARBON DIOXIDE LEVEL 30 MEQ/L (21-32); CHLORIDE LEVEL 105 MEQ/L (98-107); CREATININE FOR GFR 0.72 MG/DL (0.55-1.30); GLOMERULAR FILTRATION RATE > 60.0 (>51); GLUCOSE, FASTING 322 MG/DL (70-100); POTASSIUM SERUM 3.8 MEQ/L (3.5-5.1); SODIUM LEVEL 139 MEQ/L (136-145); TOTAL PROTEIN 8.2 GM/DL (6.4-8.2)
[2021-05-02 17:35] LABS: ERYTHROCYTE SEDIMENTATION RATE 13 mm/hr (0-30)
== END ==
LOC: M LAB 15:07
PROVIDERS: ATTEND Internal Medicine Pulmonary Disease
DX: J67.9 Hypersensitivity pneumonitis due to unspecified organic dust (principal)

== ENCOUNTER → 2021-05-02 | Outpatient (CLI) | payer OTHER, MEDICAID ==
[2021-05-02 16:47] LABS: HEMATOCRIT 45.1 % (36.0-47.0); HEMOGLOBIN 13.9 g/dl (12.0-15.5); LYMPH # 0.5 10^3/uL (1.5-5.0); LYMPH % 13.7 % (24.0-44.0); MEAN CORPUSCULAR HEMOGLOBIN 30.8 pg (27.0-33.0); MEAN CORPUSCULAR HGB CONC 30.8 g/dl (32.0-36.5); MEAN CORPUSCULAR VOLUME 99.8 fl (80.0-96.0); MONO # 0.1 10^3/uL (0.0-0.8); MONO % 2.3 % (2.0-8.0); NEUTROPHILS # 2.8 10^3/uL (1.5-8.5); NEUTROPHILS % 81.7 % (36.0-66.0); RED BLOOD COUNT 4.52 10^6/uL (4.00-5.40); WHITE BLOOD COUNT 3.4 10^3/uL (4.0-10.0)
[2021-05-02 16:54] LABS: PLATELET COUNT, AUTOMATED 85 10^3/uL (150-450)
[2021-05-02 17:19] LABS: ALBUMIN 3.4 GM/DL (3.2-5.2); ALT/SGPT 44 U/L (12-78); BILIRUBIN,TOTAL 0.5 MG/DL (0.2-1.0); BLOOD UREA NITROGEN 17 MG/DL (7-18); CARBON DIOXIDE LEVEL 30 MEQ/L (21-32); CHLORIDE LEVEL 105 MEQ/L (98-107); CHOLESTEROL LEVEL 156 MG/DL (<200); CHOLESTEROL RISK RATIO 2.888 (<5); GLOMERULAR FILTRATION RATE > 60.0 (>51); GLUCOSE, FASTING 320 MG/DL (70-100); HDL CHOLESTEROL 54 MG/DL (>40); LDL CHOLESTEROL 82 MG/DL (<100); NON-HDL-C 102 MG/DL; POTASSIUM SERUM 3.8 MEQ/L (3.5-5.1); SODIUM LEVEL 140 MEQ/L (136-145); TOTAL PROTEIN 8.2 GM/DL (6.4-8.2); TRIGLYCERIDES LEVEL 100 MG/DL (<150)
== END ==
LOC: M LAB 15:01
PROVIDERS: ATTEND Nurse Practitioner Family
DX: D69.6 Thrombocytopenia, unspecified (principal); K76.0 Fatty (change of) liver, not elsewhere classified; E11.9 Type 2 diabetes mellitus without complications; E55.9 Vitamin D deficiency, unspecified

== ENCOUNTER → 2021-05-04 | Outpatient (REF) | payer OTHER, MEDICAID ==
[2021-05-04 17:56] LABS: CREATININE, URINE 22.9 MG/DL; MALB URINE SIEMENS 5.5 MG/L
== END ==
LOC: M LAB REF 16:54
PROVIDERS: ATTEND Nurse Practitioner Family
DX: E11.9 Type 2 diabetes mellitus without complications (principal)

== ENCOUNTER → 2021-05-12 | Outpatient (CLI) | payer OTHER, MEDICAID ==
[~2021-05-12] MED LIST changes: -ALBU8.5H INH; -ALBU83IN INH; -METH8TAB4 PO; +MONT10TA10 PO; -MONT10TA97 PO; -OMEP40CA5 PO
--- NOTE | 2021-05-13 08:44 | ECHO ---
ECHOCARDIOGRAM DATE OF PROCEDURE: 05/12/2021 Age: 56 Gender: Female Height: 152 cm Weight: 103 kg REFERRING PHYSICIAN: Dr. Shavon Mesa INDICATION: Hypersensitivity pneumonitis, unspecified 2D MEASUREMENTS: Left ventricle diastole 4.5 cm Left ventricle systole 3.2 cm Ventricular septum 0.72 cm Posterior wall 0.71 cm Aortic root 2.8 cm Left atrium 3.9 cm Left atrial volume index 31 Proximal ascending aorta 2.7 cm Mid aortic arch 2.4 cm DOPPLER MEASUREMENTS: Trace aortic regurgitation. Aortic valve velocity 131 cm/s LVOT velocity 81.7 cm/s Trace mitral regurgitation. Mitral E velocity 76.0 cm/s Mitral A velocity 88.4 cm/s Mitral deceleration time 211 msec No tricuspid regurgitation. No pulmonic regurgitation Pulmonary artery systolic pressure 44 mmHg MITRAL ANNULAR TISSUE DOPPLER: E prime septal 5.8 cm/s E prime lateral 10.8 cm/s DESCRIPTION: Rhythm was sinus. Image quality was fair. No pericardial effusion. This was a 2D, M mode, color flow Doppler, and pulse wave Doppler examination and included mitral annular tissue Doppler. CONCLUSIONS: 1. Suggestive of moderate elevation of pulmonary artery systolic pressure (44 mmHg). 2. Normal left ventricle internal dimensions and wall thickness. Normal regional LV wall motion and wall thickening. Normal LV systolic function. LVEF 60% by visual assessment. Grade 1 LV diastolic dysfunction (impaired relaxation filling pattern). 3. Normal right ventricle size and systolic function. 4. Mild left atrial dilatation by left atrial volume index. 5. Very mild aortic valve sclerosis of a 3-cusp aortic valve. Trace aortic regurgitation. 6. Otherwise normal-appearing echocardiogram Doppler findings.
== END ==
LOC: M CARPUL 09:25
PROVIDERS: ATTEND Internal Medicine Pulmonary Disease
DX: J67.9 Hypersensitivity pneumonitis due to unspecified organic dust (principal)

== ENCOUNTER → 2021-05-17 | Outpatient (CLI) | payer OTHER, MEDICAID ==
[2021-05-17 15:08] LABS: PLATELET COUNT, AUTOMATED 59 10^3/uL (150-450)
[2021-05-17 15:16] LABS: INR 0.99; PROTHROMBIN TIME 13.5 SECONDS (12.7-14.5)
[2021-05-17 15:17] LABS: PARTIAL THROMBOPLASTIN TIME 22.2 SECONDS (25.9-37.0)
[2021-05-17 15:32] LABS: ALBUMIN 3.5 GM/DL (3.2-5.2); ALT/SGPT 132 U/L (12-78); BILIRUBIN,DIRECT 0.4 MG/DL (0.0-0.2); BLOOD UREA NITROGEN 15 MG/DL (7-18); CALCIUM LEVEL 9.4 MG/DL (8.5-10.1); CARBON DIOXIDE LEVEL 31 MEQ/L (21-32); CHLORIDE LEVEL 104 MEQ/L (98-107); GLOMERULAR FILTRATION RATE > 60.0 (>51); GLUCOSE, FASTING 182 MG/DL (70-100); POTASSIUM SERUM 3.9 MEQ/L (3.5-5.1); SODIUM LEVEL 140 MEQ/L (136-145); TOTAL PROTEIN 7.6 GM/DL (6.4-8.2)
== END ==
LOC: M LAB 14:31
PROVIDERS: ATTEND Internal Medicine Gastroenterology
DX: K76.0 Fatty (change of) liver, not elsewhere classified (principal); K74.60 Unspecified cirrhosis of liver; K76.6 Portal hypertension

== ENCOUNTER → 2021-05-24 | Outpatient (CLI) | payer OTHER, MEDICAID ==
--- NOTE | 2021-05-24 10:02 | REP ---
INDICATION: PORTAL HTN F/U COMPARISON: 08/18/2020 TECHNIQUE: Real time mcarthur scale and color Doppler ultrasound examination using curved array transducer. FINDINGS: Liver demonstrates coarsened echotexture without focal hepatic lesion. The main portal vein is upper limits of normal in size measuring 13 mm diameter, but demonstrates normal flow direction, wave pattern and velocity at roughly 22 cm/sec. Pancreas is incompletely evaluated due to interposed bowel gas. The gallbladder is surgically absent. No biliary ductal dilatation is appreciated and the common bile duct measures 6.6 mm diameter. Right kidney is normal in reniform shape without hydronephrosis and measures 12.6 x 5.1 x 6.0 cm. There is suggestion for a 4 mm nonobstructing lower pole calculus. No ascites in the visualized right upper quadrant. IMPRESSION: 1. Findings consistent with the given history of cirrhosis. 2. Possible 4 mm nonobstructing lower pole right renal calculus. <Electronically signed by Erik Olson > 05/24/21 [id number]
== END ==
LOC: M RAD 09:14
PROVIDERS: ATTEND Internal Medicine Gastroenterology
DX: K74.60 Unspecified cirrhosis of liver (principal); K76.0 Fatty (change of) liver, not elsewhere classified; K76.6 Portal hypertension

== ENCOUNTER → 2021-07-11 | Outpatient (CLI) | payer OTHER, MEDICAID ==
[~2021-07-11] MED LIST changes: +ISOVUE-370 76% 100ML VIAL ONE; -MONT10TA10 PO; +MONT10TA97 PO
== END ==
LOC: M PLAIMG 08:33
PROVIDERS: ATTEND Internal Medicine Pulmonary Disease
DX: J84.9 Interstitial pulmonary disease, unspecified (principal)
CPT/HCPCS: 71275; Q9967

== ENCOUNTER 2021-07-20 15:00 | Inpatient (IN) | payer OTHER, MEDICAID ==
[~2021-07-20] VITALS: Ht 154.9 cm; Wt 61.1 kg
[~2021-07-20 15:00] MED LIST changes: -D31000TA2 PO; -ISOVUE-370 76% 100ML VIAL ONE; +VITA100093 PO
[2021-07-20 15:52] LABS: BASO % 0.3 % (0.0-1.0); EOS % 0.1 % (0.0-3.0); HEMATOCRIT 50.3 % (36.0-47.0); HEMOGLOBIN 15.7 g/dl (12.0-15.5); LYMPH # 1.2 10^3/uL (1.5-5.0); LYMPH % 13.4 % (24.0-44.0); MEAN CORPUSCULAR HEMOGLOBIN 30.4 pg (27.0-33.0); MEAN CORPUSCULAR HGB CONC 31.2 g/dl (32.0-36.5); MEAN CORPUSCULAR VOLUME 97.5 fl (80.0-96.0); MONO # 0.2 10^3/uL (0.0-0.8); MONO % 2.3 % (2.0-8.0); NEUTROPHILS # 7.2 10^3/uL (1.5-8.5); NEUTROPHILS % 81.6 % (36.0-66.0); PLATELET COUNT, AUTOMATED 101 10^3/uL (150-450); RED BLOOD COUNT 5.16 10^6/uL (4.00-5.40); WHITE BLOOD COUNT 8.8 10^3/uL (4.0-10.0)
[2021-07-20 16:18] LABS: CK-MB VALUE MASS 1.2 NG/ML (<3.6); MB/CK RELATIVE INDEX 2.22 (< OR =4)
[2021-07-20 16:20] LABS: ALBUMIN 3.5 GM/DL (3.2-5.2); ALT/SGPT 118 U/L (12-78); BILIRUBIN,DIRECT 0.7 MG/DL (0.0-0.2); BILIRUBIN,TOTAL 1.9 MG/DL (0.2-1.0); BLOOD UREA NITROGEN 15 MG/DL (7-18); CARBON DIOXIDE LEVEL 28 MEQ/L (21-32); CHLORIDE LEVEL 104 MEQ/L (98-107); CREATININE FOR GFR 0.59 MG/DL (0.55-1.30); GLOMERULAR FILTRATION RATE > 60.0 (>51); GLUCOSE, FASTING 218 MG/DL (70-100); NT-PRO BNP 10 PG/ML (<125); POTASSIUM SERUM 4.3 MEQ/L (3.5-5.1); SODIUM LEVEL 142 MEQ/L (136-145); THYROID STIMULATING HORMONE 0.405 uIU/ML (0.358-3.740); THYROXINE (T4) 7.1 UG/DL (4.5-12.0); TOTAL PROTEIN 8.4 GM/DL (6.4-8.2)
[2021-07-20] MEDS ORDERED: ISOVUE-370 76% 100ML VIAL As Ordered ONE (17:07)
[2021-07-20] MEDS ORDERED: ONDANSETRON 4MG/2ML VIAL IV PRN (19:05)
[2021-07-20] MEDS ORDERED: BISACODYL 10 MG SUPP PR PRN (19:05)
[2021-07-20] MEDS ORDERED: LEVALBUTEROL 1.25 MG/0.5 ML CONCENTRATE NEB NEB PRN ×2 (19:05→20:40)
[2021-07-20] MEDS ORDERED: NORCO, ANEXSIA 5/325MG TABLET (HYDROcodone/ACETAMINOPHEN) PO PRN (19:05)
[2021-07-20] MEDS ORDERED: NS 1,000 ML IV SCH (20:15)
[2021-07-20] MEDS ORDERED: GLUCOSE 4GM CHEW TABLET PO PRN (20:15)
[2021-07-20] MEDS ORDERED: GLUCAGON INJ 1MG VIAL SC PRN (20:15)
[2021-07-20] MEDS ORDERED: ALBUTEROL SULFATE 2.5 MG/0.5 ML INH NEB SOLN NEB PRN (20:15)
[2021-07-20] MEDS ORDERED: DEXTROSE 50% 50 ML SYRINGE IV PRN (20:15)
[2021-07-20] MEDS ORDERED: LEVALBUTEROL 1.25 MG/0.5 ML CONCENTRATE NEB INH PRN (20:25)
[2021-07-20] MEDS ORDERED: AZEL1SPR3 NARES (20:28)
[2021-07-20] MEDS ORDERED: OMEP40CA5 PO (20:28)
[2021-07-20] MEDS ORDERED: METH8TAB4 PO (20:28)
[2021-07-20] MEDS ORDERED: ALBU83IN INH (20:28)
[2021-07-20] MEDS ORDERED: ALBU8.5H INH (20:28)
[2021-07-20] MEDS ORDERED: HOME MED LIST COMPLETE! XX SCH (20:30)
[2021-07-20] MEDS ORDERED: HEPARIN SOD (PORCINE) 5000UNITS/ML 1ML VIAL/SYRINGE SC SCH (21:00)
[2021-07-20] MEDS: DOCUSATE SODIUM 100MG CAPSULE PO SCH (21:00)
[2021-07-20] MEDS: LEVALBUTEROL 1.25 MG/0.5 ML CONCENTRATE NEB NEB SCH (21:03)
[2021-07-20] MEDS: LEVEMIR (INSULIN DETEMIR) 1 UNITS/0.01ML SC SCH (21:15)
[2021-07-20 21:55] LABS: ABG HCO3 32.5 MEQ/L (22.0-26.0); ABG O2 SATURATION 96.9 % (95.0-99.0); ABG PARTIAL PRESSURE CO2 44.5 mmHg (35.0-45.0); ABG PARTIAL PRESSURE O2 93.8 mmHg (75.0-100.0); ABG STANDARD HCO3 31.8 MEQ/L (22.0-26.0); ABG TOTAL CO2 33.9 MEQ/L (22.0-29.0); ABG pH (ARTERIAL) 7.482 UNITS (7.350-7.450)
[2021-07-20 22:06] VITALS: BP 166/85
[2021-07-20] MEDS: guaiFENesin DM LIQ 10ML UD PO PRN (22:45)
[2021-07-20] MEDS: HumaLOG INSULIN (NovoLOG) PER UNIT SC SCH (22:48)
[2021-07-21 00:10] VITALS: BP 124/71
[2021-07-21] MEDS: LEVALBUTEROL 1.25 MG/0.5 ML CONCENTRATE NEB NEB SCH ×4 (02:45→21:29)
[2021-07-21 04:15] VITALS: BP 130/70
[2021-07-21] MEDS: HumaLOG INSULIN (NovoLOG) PER UNIT SC SCH ×4 (05:09→21:00)
[2021-07-21 05:30] LABS: BASO % 0.3 % (0.0-1.0); EOS % 0.3 % (0.0-3.0); HEMATOCRIT 47.3 % (36.0-47.0); HEMOGLOBIN 14.3 g/dl (12.0-15.5); LYMPH % 29.4 % (24.0-44.0); MEAN CORPUSCULAR HEMOGLOBIN 30.3 pg (27.0-33.0); MEAN CORPUSCULAR HGB CONC 30.2 g/dl (32.0-36.5); MEAN CORPUSCULAR VOLUME 100.2 fl (80.0-96.0); MONO # 0.5 10^3/uL (0.0-0.8); MONO % 6.6 % (2.0-8.0); NEUTROPHILS # 4.2 10^3/uL (1.5-8.5); NEUTROPHILS % 62.4 % (36.0-66.0); RED BLOOD COUNT 4.72 10^6/uL (4.00-5.40); WHITE BLOOD COUNT 6.8 10^3/uL (4.0-10.0)
[2021-07-21 05:31] LABS: ABG BASE EXCESS 2.8 (-2.0-2.0); ABG HCO3 27.9 MEQ/L (22.0-26.0); ABG O2 SATURATION 96.1 % (95.0-99.0); ABG PARTIAL PRESSURE CO2 44.5 mmHg (35.0-45.0); ABG PARTIAL PRESSURE O2 88.3 mmHg (75.0-100.0); ABG STANDARD HCO3 26.9 MEQ/L (22.0-26.0); ABG TOTAL CO2 29.3 MEQ/L (22.0-29.0); ABG pH (ARTERIAL) 7.415 UNITS (7.350-7.450)
[2021-07-21 05:34] LABS: PLATELET COUNT, AUTOMATED 79 10^3/uL (150-450)
[2021-07-21 05:46] LABS: BLOOD UREA NITROGEN 17 MG/DL (7-18); CALCIUM LEVEL 9.4 MG/DL (8.5-10.1); CARBON DIOXIDE LEVEL 33 MEQ/L (21-32); CHLORIDE LEVEL 107 MEQ/L (98-107); CREATININE FOR GFR 0.54 MG/DL (0.55-1.30); GLOMERULAR FILTRATION RATE > 60.0 (>51); GLUCOSE, FASTING 112 MG/DL (70-100); POTASSIUM SERUM 3.8 MEQ/L (3.5-5.1); SODIUM LEVEL 147 MEQ/L (136-145)
[2021-07-21] MEDS: IPRATROPIUM 0.02% SOLN 0.5MG 2.5ML NEB INH SCH ×3 (07:20→20:00)
[2021-07-21] MEDS ORDERED: D5W/0.45% SODIUM CHLORIDE 1,000 ML IV SCH (07:45)
[2021-07-21 08:00] VITALS: BP 125/69
[2021-07-21] MEDS ORDERED: IPRATROPIUM 0.5MG/ALBUTEROL 2.5MG INH SOL UD 3ML (DUONEB) NEB SCH (08:00)
[2021-07-21] MEDS: DOCUSATE SODIUM 100MG CAPSULE PO SCH ×2 (09:00→21:00)
[2021-07-21] MEDS: MOM 30ML SUSPENSION UDC PO SCH (09:00)
[2021-07-21] MEDS ORDERED: VANCOMYCIN HCL 1,000 MG, VIAL MATE ADAPTER 1 EACH in NS 250 ML IV SCH (11:00)
[2021-07-21 12:00] VITALS: BP 125/69
[2021-07-21] MEDS ORDERED: VANCOMYCIN HCL 500 MG in D5W MINI-BAG PLUS 100 ML IV ONE (12:00)
[2021-07-21] MEDS: LACTOBACILLUS ACIDOPHILUS CAP (BACID) PO SCH ×3 (12:07→21:03)
[2021-07-21] MEDS: PANTOPRAZOLE 40MG TAB (PROTONIX) PO SCH (12:07)
[2021-07-21 12:29] LABS: HEPATITIS B CORE ANTIBODY IGM NEGATIVE (NEGATIVE); HEPATITIS B SURFACE ANTIGEN NEGATIVE (NEGATIVE); HEPATITIS C VIRUS ABY INDEX 0.1 INDEX (<0.8)
[2021-07-21] MEDS: NYSTATIN 500,000 U/5 ML SUSP UDC SS SCH ×3 (13:29→21:03)
[2021-07-21] MEDS: guaiFENesin DM LIQ 10ML UD PO PRN ×2 (15:16→22:44)
[2021-07-21 16:00] VITALS: BP 142/74
[2021-07-21 20:00] VITALS: BP 135/63
[2021-07-21] MEDS: LEVEMIR (INSULIN DETEMIR) 1 UNITS/0.01ML SC SCH (21:03)
[2021-07-22] VITALS (7 sets, daily range): BP systolic 138–148; BP diastolic 65–85; O2SAT 94
[2021-07-22] MEDS: IPRATROPIUM 0.02% SOLN 0.5MG 2.5ML NEB INH SCH ×4 (01:37→20:13)
[2021-07-22] MEDS: LEVALBUTEROL 1.25 MG/0.5 ML CONCENTRATE NEB NEB SCH ×4 (01:37→20:13)
[2021-07-22 04:06] LABS: BASO % 0.4 % (0.0-1.0); EOS % 0.2 % (0.0-3.0); LYMPH # 1.4 10^3/uL (1.5-5.0); LYMPH % 25.5 % (24.0-44.0); MEAN CORPUSCULAR HEMOGLOBIN 30.3 pg (27.0-33.0); MEAN CORPUSCULAR HGB CONC 30.8 g/dl (32.0-36.5); MEAN CORPUSCULAR VOLUME 98.5 fl (80.0-96.0); MONO # 0.3 10^3/uL (0.0-0.8); MONO % 5.9 % (2.0-8.0); NEUTROPHILS # 3.8 10^3/uL (1.5-8.5); NEUTROPHILS % 67.3 % (36.0-66.0); RED BLOOD COUNT 4.06 10^6/uL (4.00-5.40); WHITE BLOOD COUNT 5.6 10^3/uL (4.0-10.0)
[2021-07-22 04:07] LABS: HEMOGLOBIN 12.3 g/dl (12.0-15.5); PLATELET COUNT, AUTOMATED 65 10^3/uL (150-450)
[2021-07-22 05:04] LABS: ALBUMIN 2.7 GM/DL (3.2-5.2); ALT/SGPT 128 U/L (12-78); BILIRUBIN,DIRECT 0.5 MG/DL (0.0-0.2); BILIRUBIN,TOTAL 1.3 MG/DL (0.2-1.0); BLOOD UREA NITROGEN 14 MG/DL (7-18); CALCIUM LEVEL 9.1 MG/DL (8.5-10.1); CARBON DIOXIDE LEVEL 30 MEQ/L (21-32); CHLORIDE LEVEL 104 MEQ/L (98-107); GLOMERULAR FILTRATION RATE > 60.0 (>51); GLUCOSE, FASTING 154 MG/DL (70-100); SODIUM LEVEL 141 MEQ/L (136-145); TOTAL PROTEIN 6.7 GM/DL (6.4-8.2)
[2021-07-22] MEDS: guaiFENesin DM LIQ 10ML UD PO PRN (05:14)
[2021-07-22] MEDS: LACTOBACILLUS ACIDOPHILUS CAP (BACID) PO SCH ×4 (08:19→20:45)
[2021-07-22] MEDS: PANTOPRAZOLE 40MG TAB (PROTONIX) PO SCH (08:19)
[2021-07-22] MEDS: HumaLOG INSULIN (NovoLOG) PER UNIT SC SCH ×4 (08:19→20:45)
[2021-07-22] MEDS: NYSTATIN 500,000 U/5 ML SUSP UDC SS SCH ×4 (08:19→20:46)
[2021-07-22] MEDS ORDERED: VANCOMYCIN HCL 1,000 MG, VIAL MATE ADAPTER 1 EACH in NS 250 ML IV ONE (09:00)
[2021-07-22] MEDS: DOCUSATE SODIUM 100MG CAPSULE PO SCH (09:00)
[2021-07-22] MEDS: MOM 30ML SUSPENSION UDC PO SCH (09:00)
[2021-07-22] MEDS: VANCOMYCIN HCL 1,000 MG, VIAL MATE ADAPTER 1 EACH in NS 250 ML IV SCH ×2 (12:14→20:46)
[2021-07-22] MEDS: ceFAZolin SOD 2 GM in IV 1 EA IV SCH (17:47)
[2021-07-22] MEDS: LEVEMIR (INSULIN DETEMIR) 1 UNITS/0.01ML SC SCH (20:45)
[2021-07-23] VITALS (18 sets, daily range): BP systolic 127–153; BP diastolic 57–76; O2SAT 81–99
[2021-07-23] MEDS: ceFAZolin SOD 2 GM in IV 1 EA IV SCH ×4 (00:51→23:39)
[2021-07-23] MEDS: IPRATROPIUM 0.02% SOLN 0.5MG 2.5ML NEB INH SCH ×4 (01:30→19:51)
[2021-07-23] MEDS: LEVALBUTEROL 1.25 MG/0.5 ML CONCENTRATE NEB NEB SCH ×4 (01:30→19:52)
[2021-07-23] MEDS: VANCOMYCIN HCL 1,000 MG, VIAL MATE ADAPTER 1 EACH in NS 250 ML IV SCH (05:25)
[2021-07-23 05:36] LABS: BASO % 0.2 % (0.0-1.0); EOS % 0.6 % (0.0-3.0); HEMATOCRIT 37.7 % (36.0-47.0); HEMOGLOBIN 11.5 g/dl (12.0-15.5); LYMPH # 1.3 10^3/uL (1.5-5.0); LYMPH % 24.9 % (24.0-44.0); MEAN CORPUSCULAR HEMOGLOBIN 29.9 pg (27.0-33.0); MEAN CORPUSCULAR HGB CONC 30.5 g/dl (32.0-36.5); MEAN CORPUSCULAR VOLUME 97.9 fl (80.0-96.0); MONO # 0.3 10^3/uL (0.0-0.8); MONO % 5.2 % (2.0-8.0); NEUTROPHILS # 3.4 10^3/uL (1.5-8.5); NEUTROPHILS % 67.9 % (36.0-66.0); RED BLOOD COUNT 3.85 10^6/uL (4.00-5.40)
[2021-07-23 05:37] LABS: PLATELET COUNT, AUTOMATED 65 10^3/uL (150-450)
[2021-07-23 06:10] LABS: ALBUMIN 2.6 GM/DL (3.2-5.2); ALT/SGPT 107 U/L (12-78); BILIRUBIN,DIRECT 0.2 MG/DL (0.0-0.2); BILIRUBIN,TOTAL 0.7 MG/DL (0.2-1.0); BLOOD UREA NITROGEN 11 MG/DL (7-18); CALCIUM LEVEL 8.8 MG/DL (8.5-10.1); CARBON DIOXIDE LEVEL 33 MEQ/L (21-32); CHLORIDE LEVEL 105 MEQ/L (98-107); CREATININE FOR GFR 0.44 MG/DL (0.55-1.30); GLOMERULAR FILTRATION RATE > 60.0 (>51); GLUCOSE, FASTING 144 MG/DL (70-100); POTASSIUM SERUM 3.7 MEQ/L (3.5-5.1); SODIUM LEVEL 142 MEQ/L (136-145); TOTAL PROTEIN 6.8 GM/DL (6.4-8.2)
[2021-07-23] MEDS ORDERED: ISOVUE-370 76% 100ML VIAL As Ordered ONE (08:10)
[2021-07-23] MEDS: NYSTATIN 500,000 U/5 ML SUSP UDC SS SCH ×4 (10:30→21:00)
[2021-07-23] MEDS: LACTOBACILLUS ACIDOPHILUS CAP (BACID) PO SCH ×4 (10:31→21:08)
[2021-07-23] MEDS: HumaLOG INSULIN (NovoLOG) PER UNIT SC SCH ×4 (10:32→21:00)
[2021-07-23] MEDS: PANTOPRAZOLE 40MG TAB (PROTONIX) PO SCH (10:32)
[2021-07-23] MEDS: guaiFENesin DM LIQ 10ML UD PO PRN (11:39)
[2021-07-23] MEDS: guaiFENesin ER 600 MG TAB PO SCH ×2 (13:06→21:08)
[2021-07-23] MEDS: NYSTATIN 100,000 UNITS/GM TOPICAL PWD 15 GM TOP SCH ×2 (16:15→21:09)
[2021-07-23] MEDS: LEVEMIR (INSULIN DETEMIR) 1 UNITS/0.01ML SC SCH (21:09)
[2021-07-24] VITALS (47 sets, daily range): BP systolic 129–134; BP diastolic 58–79; O2SAT 77–100
[2021-07-24] MEDS: LEVALBUTEROL 1.25 MG/0.5 ML CONCENTRATE NEB NEB SCH ×4 (01:59→20:17)
[2021-07-24] MEDS: IPRATROPIUM 0.02% SOLN 0.5MG 2.5ML NEB INH SCH ×4 (02:00→20:17)
[2021-07-24 04:36] LABS: BASO % 0.3 % (0.0-1.0); EOS % 0.3 % (0.0-3.0); HEMATOCRIT 37.1 % (36.0-47.0); HEMOGLOBIN 11.6 g/dl (12.0-15.5); LYMPH # 0.9 10^3/uL (1.5-5.0); LYMPH % 22.6 % (24.0-44.0); MEAN CORPUSCULAR HEMOGLOBIN 30.6 pg (27.0-33.0); MEAN CORPUSCULAR HGB CONC 31.3 g/dl (32.0-36.5); MEAN CORPUSCULAR VOLUME 97.9 fl (80.0-96.0); MONO # 0.2 10^3/uL (0.0-0.8); MONO % 4.3 % (2.0-8.0); NEUTROPHILS # 2.9 10^3/uL (1.5-8.5); NEUTROPHILS % 71.5 % (36.0-66.0); RED BLOOD COUNT 3.79 10^6/uL (4.00-5.40)
[2021-07-24 04:41] LABS: PLATELET COUNT, AUTOMATED 57 10^3/uL (150-450)
[2021-07-24 05:06] LABS: ALBUMIN 2.7 GM/DL (3.2-5.2); ALT/SGPT 86 U/L (12-78); BILIRUBIN,DIRECT 0.3 MG/DL (0.0-0.2); BILIRUBIN,TOTAL 0.9 MG/DL (0.2-1.0); BLOOD UREA NITROGEN 10 MG/DL (7-18); CALCIUM LEVEL 8.9 MG/DL (8.5-10.1); CARBON DIOXIDE LEVEL 32 MEQ/L (21-32); CHLORIDE LEVEL 103 MEQ/L (98-107); CREATININE FOR GFR 0.38 MG/DL (0.55-1.30); GLOMERULAR FILTRATION RATE > 60.0 (>51); GLUCOSE, FASTING 158 MG/DL (70-100); POTASSIUM SERUM 3.8 MEQ/L (3.5-5.1); SODIUM LEVEL 140 MEQ/L (136-145); TOTAL PROTEIN 6.5 GM/DL (6.4-8.2)
[2021-07-24] MEDS: HumaLOG INSULIN (NovoLOG) PER UNIT SC SCH ×4 (07:30→21:00)
[2021-07-24] MEDS: NYSTATIN 100,000 UNITS/GM TOPICAL PWD 15 GM TOP SCH ×2 (08:32→21:00)
[2021-07-24] MEDS: ceFAZolin SOD 2 GM in IV 1 EA IV SCH ×2 (09:25→17:06)
[2021-07-24] MEDS: PANTOPRAZOLE 40MG TAB (PROTONIX) PO SCH (09:25)
[2021-07-24] MEDS: NYSTATIN 500,000 U/5 ML SUSP UDC SS SCH ×4 (09:25→21:32)
[2021-07-24] MEDS: guaiFENesin ER 600 MG TAB PO SCH ×2 (09:26→21:32)
[2021-07-24] MEDS: LACTOBACILLUS ACIDOPHILUS CAP (BACID) PO SCH ×4 (09:26→21:32)
[2021-07-24] MEDS: LEVEMIR (INSULIN DETEMIR) 1 UNITS/0.01ML SC SCH (21:33)
[2021-07-25] VITALS (8 sets, daily range): BP systolic 120–155; BP diastolic 66–77; O2SAT 92
[2021-07-25] MEDS: LEVALBUTEROL 1.25 MG/0.5 ML CONCENTRATE NEB NEB SCH ×4 (01:35→19:49)
[2021-07-25] MEDS: IPRATROPIUM 0.02% SOLN 0.5MG 2.5ML NEB INH SCH ×4 (01:35→19:49)
[2021-07-25 02:42] LABS: BASO % 0.4 % (0.0-1.0); EOS % 0.6 % (0.0-3.0); HEMATOCRIT 36.9 % (36.0-47.0); HEMOGLOBIN 11.7 g/dl (12.0-15.5); LYMPH # 1.1 10^3/uL (1.5-5.0); LYMPH % 20.4 % (24.0-44.0); MEAN CORPUSCULAR HEMOGLOBIN 30.7 pg (27.0-33.0); MEAN CORPUSCULAR HGB CONC 31.7 g/dl (32.0-36.5); MEAN CORPUSCULAR VOLUME 96.9 fl (80.0-96.0); MONO # 0.2 10^3/uL (0.0-0.8); MONO % 4.5 % (2.0-8.0); NEUTROPHILS # 3.8 10^3/uL (1.5-8.5); NEUTROPHILS % 72.6 % (36.0-66.0); RED BLOOD COUNT 3.81 10^6/uL (4.00-5.40); WHITE BLOOD COUNT 5.3 10^3/uL (4.0-10.0)
[2021-07-25 02:59] LABS: PLATELET COUNT, AUTOMATED 74 10^3/uL (150-450)
[2021-07-25 03:12] LABS: ALBUMIN 2.6 GM/DL (3.2-5.2); ALT/SGPT 72 U/L (12-78); BILIRUBIN,DIRECT 0.2 MG/DL (0.0-0.2); BLOOD UREA NITROGEN 11 MG/DL (7-18); CALCIUM LEVEL 8.8 MG/DL (8.5-10.1); CARBON DIOXIDE LEVEL 28 MEQ/L (21-32); CHLORIDE LEVEL 104 MEQ/L (98-107); CREATININE FOR GFR 0.42 MG/DL (0.55-1.30); GLOMERULAR FILTRATION RATE > 60.0 (>51); GLUCOSE, FASTING 190 MG/DL (70-100); POTASSIUM SERUM 3.9 MEQ/L (3.5-5.1); SODIUM LEVEL 140 MEQ/L (136-145); TOTAL PROTEIN 6.6 GM/DL (6.4-8.2)
[2021-07-25] MEDS: HumaLOG INSULIN (NovoLOG) PER UNIT SC SCH ×4 (07:30→21:03)
[2021-07-25] MEDS: PANTOPRAZOLE 40MG TAB (PROTONIX) PO SCH (08:53)
[2021-07-25] MEDS: guaiFENesin ER 600 MG TAB PO SCH ×2 (08:53→21:03)
[2021-07-25] MEDS: LACTOBACILLUS ACIDOPHILUS CAP (BACID) PO SCH ×4 (08:53→21:03)
[2021-07-25] MEDS: ceFAZolin SOD 2 GM in IV 1 EA IV SCH ×4 (08:54→17:33)
[2021-07-25] MEDS: NYSTATIN 100,000 UNITS/GM TOPICAL PWD 15 GM TOP SCH ×2 (08:54→21:04)
[2021-07-25] MEDS: NYSTATIN 500,000 U/5 ML SUSP UDC SS SCH ×4 (08:54→21:03)
[2021-07-25] MEDS: LEVEMIR (INSULIN DETEMIR) 1 UNITS/0.01ML SC SCH (21:03)
[2021-07-26] VITALS: BP 117/64
[2021-07-26] MEDS: ceFAZolin SOD 2 GM in IV 1 EA IV SCH ×3 (00:23→17:42)
[2021-07-26] MEDS: IPRATROPIUM 0.02% SOLN 0.5MG 2.5ML NEB INH SCH ×3 (01:17→13:21)
[2021-07-26] MEDS: LEVALBUTEROL 1.25 MG/0.5 ML CONCENTRATE NEB NEB SCH ×4 (01:17→19:50)
[2021-07-26 04:00] VITALS: BP 127/75
[2021-07-26 04:43] LABS: BASO % 0.3 % (0.0-1.0); EOS % 0.8 % (0.0-3.0); HEMATOCRIT 34.9 % (36.0-47.0); LYMPH % 26.7 % (24.0-44.0); MEAN CORPUSCULAR HEMOGLOBIN 30.6 pg (27.0-33.0); MEAN CORPUSCULAR HGB CONC 31.5 g/dl (32.0-36.5); MEAN CORPUSCULAR VOLUME 96.9 fl (80.0-96.0); MONO # 0.2 10^3/uL (0.0-0.8); NEUTROPHILS # 2.5 10^3/uL (1.5-8.5); NEUTROPHILS % 66.7 % (36.0-66.0); WHITE BLOOD COUNT 3.8 10^3/uL (4.0-10.0)
[2021-07-26 04:48] LABS: PLATELET COUNT, AUTOMATED 64 10^3/uL (150-450)
[2021-07-26 05:06] LABS: ALBUMIN 2.4 GM/DL (3.2-5.2); ALT/SGPT 56 U/L (12-78); BILIRUBIN,DIRECT 0.2 MG/DL (0.0-0.2); BILIRUBIN,TOTAL 0.8 MG/DL (0.2-1.0); BLOOD UREA NITROGEN 11 MG/DL (7-18); CALCIUM LEVEL 8.7 MG/DL (8.5-10.1); CARBON DIOXIDE LEVEL 33 MEQ/L (21-32); CHLORIDE LEVEL 104 MEQ/L (98-107); CREATININE FOR GFR 0.35 MG/DL (0.55-1.30); GLOMERULAR FILTRATION RATE > 60.0 (>51); GLUCOSE, FASTING 127 MG/DL (70-100); POTASSIUM SERUM 3.4 MEQ/L (3.5-5.1); SODIUM LEVEL 139 MEQ/L (136-145); TOTAL PROTEIN 6.5 GM/DL (6.4-8.2)
[2021-07-26 08:00] VITALS: BP 143/69; O2SAT 92
[2021-07-26] MEDS ORDERED: POTASSIUM CHLORIDE 10MEQ SR TABLET PO ONE (08:00)
[2021-07-26] MEDS: HumaLOG INSULIN (NovoLOG) PER UNIT SC SCH ×4 (08:49→20:47)
[2021-07-26] MEDS: LACTOBACILLUS ACIDOPHILUS CAP (BACID) PO SCH ×4 (09:19→20:46)
[2021-07-26] MEDS: guaiFENesin ER 600 MG TAB PO SCH ×2 (09:20→20:46)
[2021-07-26] MEDS: NYSTATIN 500,000 U/5 ML SUSP UDC SS SCH ×4 (09:20→20:46)
[2021-07-26] MEDS: PANTOPRAZOLE 40MG TAB (PROTONIX) PO SCH (09:21)
[2021-07-26] MEDS: NYSTATIN 100,000 UNITS/GM TOPICAL PWD 15 GM TOP SCH ×2 (09:21→20:47)
[2021-07-26 12:00] VITALS: BP 135/69; O2SAT 92
[2021-07-26 16:00] VITALS: BP 142/73
[2021-07-26] MEDS: guaiFENesin DM LIQ 10ML UD PO PRN (17:41)
[2021-07-26 19:53] VITALS: BP 132/64
[2021-07-26] MEDS: LEVEMIR (INSULIN DETEMIR) 1 UNITS/0.01ML SC SCH (20:47)
[2021-07-27] VITALS (9 sets, daily range): BP systolic 125–143; BP diastolic 63–69; O2SAT 92–93
[2021-07-27] MEDS: ceFAZolin SOD 2 GM in IV 1 EA IV SCH ×3 (00:05→16:50)
[2021-07-27] MEDS: LEVALBUTEROL 1.25 MG/0.5 ML CONCENTRATE NEB NEB SCH ×4 (01:45→20:31)
[2021-07-27] MEDS: NYSTATIN 500,000 U/5 ML SUSP UDC SS SCH ×4 (09:06→21:48)
[2021-07-27] MEDS: PANTOPRAZOLE 40MG TAB (PROTONIX) PO SCH ×2 (09:06→21:48)
[2021-07-27] MEDS: guaiFENesin ER 600 MG TAB PO SCH ×2 (09:07→21:49)
[2021-07-27] MEDS: LACTOBACILLUS ACIDOPHILUS CAP (BACID) PO SCH ×4 (09:07→21:48)
[2021-07-27] MEDS: LEVEMIR (INSULIN DETEMIR) 1 UNITS/0.01ML SC SCH ×2 (09:07→21:48)
[2021-07-27] MEDS: HumaLOG INSULIN (NovoLOG) PER UNIT SC SCH ×4 (09:08→21:47)
[2021-07-27] MEDS: NYSTATIN 100,000 UNITS/GM TOPICAL PWD 15 GM TOP SCH ×2 (09:08→21:49)
[2021-07-27] MEDS ORDERED: FUROSEMIDE 40MG/4ML VIAL (J1940) IV ONE (12:35)
[2021-07-27] MEDS ORDERED: SODIUM CHLORIDE HYPERTONIC 3% 15ML NEB SOL NEB ONE (16:00)
[2021-07-27] MEDS ORDERED: SODIUM CHLORIDE HYPERTONIC 3% 15ML NEB SOL INH ONE (16:00)
[2021-07-28] VITALS (18 sets, daily range): BP systolic 122–146; BP diastolic 62–70; O2SAT 92–97
[2021-07-28] MEDS: ceFAZolin SOD 2 GM in IV 1 EA IV SCH ×4 (00:16→23:54)
[2021-07-28] MEDS: LEVALBUTEROL 1.25 MG/0.5 ML CONCENTRATE NEB NEB SCH ×4 (02:00→20:28)
[2021-07-28 05:06] LABS: BASO % 0.2 % (0.0-1.0); EOS % 0.4 % (0.0-3.0); HEMATOCRIT 37.2 % (36.0-47.0); HEMOGLOBIN 11.9 g/dl (12.0-15.5); LYMPH # 1.5 10^3/uL (1.5-5.0); MEAN CORPUSCULAR HEMOGLOBIN 30.3 pg (27.0-33.0); MEAN CORPUSCULAR VOLUME 94.7 fl (80.0-96.0); MONO # 0.2 10^3/uL (0.0-0.8); MONO % 4.3 % (2.0-8.0); NEUTROPHILS # 3.7 10^3/uL (1.5-8.5); NEUTROPHILS % 66.8 % (36.0-66.0); RED BLOOD COUNT 3.93 10^6/uL (4.00-5.40); WHITE BLOOD COUNT 5.6 10^3/uL (4.0-10.0)
[2021-07-28 05:11] LABS: PLATELET COUNT, AUTOMATED 84 10^3/uL (150-450)
[2021-07-28 05:22] LABS: BLOOD UREA NITROGEN 10 MG/DL (7-18); CARBON DIOXIDE LEVEL 37 MEQ/L (21-32); CHLORIDE LEVEL 100 MEQ/L (98-107); CREATININE FOR GFR 0.42 MG/DL (0.55-1.30); GLOMERULAR FILTRATION RATE > 60.0 (>51); GLUCOSE, FASTING 134 MG/DL (70-100); POTASSIUM SERUM 3.4 MEQ/L (3.5-5.1); SODIUM LEVEL 140 MEQ/L (136-145)
[2021-07-28] MEDS ORDERED: POTASSIUM CHLORIDE 10MEQ SR TABLET PO ONE (07:15)
[2021-07-28] MEDS: guaiFENesin ER 600 MG TAB PO SCH ×2 (09:04→20:23)
[2021-07-28] MEDS: NYSTATIN 500,000 U/5 ML SUSP UDC SS SCH ×4 (09:04→20:23)
[2021-07-28] MEDS: PANTOPRAZOLE 40MG TAB (PROTONIX) PO SCH ×2 (09:04→20:23)
[2021-07-28] MEDS: LACTOBACILLUS ACIDOPHILUS CAP (BACID) PO SCH ×4 (09:04→20:23)
[2021-07-28] MEDS: HumaLOG INSULIN (NovoLOG) PER UNIT SC SCH ×4 (09:15→20:23)
[2021-07-28] MEDS: LEVEMIR (INSULIN DETEMIR) 1 UNITS/0.01ML SC SCH ×2 (10:06→20:22)
[2021-07-28] MEDS ORDERED: LIDOCAINE 1% MDV 20ML VIAL As Ordered ONE (15:27)
[2021-07-28] MEDS: SODIUM CHLORIDE 0.9% INJ 10 ML SYR IV SCH (18:15)
[2021-07-29] VITALS (28 sets, daily range): BP systolic 122–131; BP diastolic 1–76; O2SAT 79–99
[2021-07-29] MEDS: LEVALBUTEROL 1.25 MG/0.5 ML CONCENTRATE NEB NEB SCH ×4 (01:56→19:18)
[2021-07-29] MEDS: SODIUM CHLORIDE 0.9% INJ 10 ML SYR IV SCH ×2 (05:27→17:11)
[2021-07-29] MEDS: HumaLOG INSULIN (NovoLOG) PER UNIT SC SCH ×4 (07:30→20:06)
[2021-07-29 07:57] LABS: BASO % 0.2 % (0.0-1.0); EOS % 0.6 % (0.0-3.0); HEMATOCRIT 37.3 % (36.0-47.0); HEMOGLOBIN 11.6 g/dl (12.0-15.5); LYMPH # 1.4 10^3/uL (1.5-5.0); LYMPH % 29.4 % (24.0-44.0); MEAN CORPUSCULAR HGB CONC 31.1 g/dl (32.0-36.5); MEAN CORPUSCULAR VOLUME 96.4 fl (80.0-96.0); MONO # 0.2 10^3/uL (0.0-0.8); MONO % 4.8 % (2.0-8.0); NEUTROPHILS # 3.1 10^3/uL (1.5-8.5); NEUTROPHILS % 64.2 % (36.0-66.0); RED BLOOD COUNT 3.87 10^6/uL (4.00-5.40); WHITE BLOOD COUNT 4.8 10^3/uL (4.0-10.0)
[2021-07-29 07:58] LABS: PLATELET COUNT, AUTOMATED 76 10^3/uL (150-450)
[2021-07-29] MEDS: NYSTATIN 500,000 U/5 ML SUSP UDC SS SCH ×4 (08:00→20:03)
[2021-07-29] MEDS: guaiFENesin ER 600 MG TAB PO SCH ×2 (08:00→20:04)
[2021-07-29] MEDS: ceFAZolin SOD 2 GM in IV 1 EA IV SCH ×3 (08:00→23:01)
[2021-07-29] MEDS: PANTOPRAZOLE 40MG TAB (PROTONIX) PO SCH ×2 (08:00→20:03)
[2021-07-29] MEDS: LACTOBACILLUS ACIDOPHILUS CAP (BACID) PO SCH ×4 (08:01→20:03)
[2021-07-29 08:29] LABS: BLOOD UREA NITROGEN 12 MG/DL (7-18); CALCIUM LEVEL 8.8 MG/DL (8.5-10.1); CARBON DIOXIDE LEVEL 35 MEQ/L (21-32); CHLORIDE LEVEL 105 MEQ/L (98-107); CREATININE FOR GFR 0.52 MG/DL (0.55-1.30); GLOMERULAR FILTRATION RATE > 60.0 (>51); GLUCOSE, FASTING 105 MG/DL (70-100); POTASSIUM SERUM 3.6 MEQ/L (3.5-5.1); SODIUM LEVEL 142 MEQ/L (136-145)
[2021-07-29] MEDS: LEVEMIR (INSULIN DETEMIR) 1 UNITS/0.01ML SC SCH ×2 (09:44→20:03)
[2021-07-29] MEDS: DEXTROMETHORPHAN 60MG/10ML SUSP 90ML BTL(DELSYM) PO PRN (15:59)
[2021-07-29] MEDS: NYSTATIN 100,000 UNITS/GM TOPICAL PWD 15 GM TOP SCH (22:14)
[2021-07-30] VITALS (18 sets, daily range): BP systolic 108–148; BP diastolic 59–79; O2SAT 90–100
[2021-07-30] MEDS: LEVALBUTEROL 1.25 MG/0.5 ML CONCENTRATE NEB NEB SCH ×4 (01:31→19:35)
[2021-07-30] MEDS: SODIUM CHLORIDE 0.9% INJ 10 ML SYR IV SCH ×2 (04:41→17:31)
[2021-07-30 05:04] LABS: BASO % 0.2 % (0.0-1.0); EOS % 0.5 % (0.0-3.0); HEMATOCRIT 36.2 % (36.0-47.0); HEMOGLOBIN 11.2 g/dl (12.0-15.5); LYMPH # 1.3 10^3/uL (1.5-5.0); LYMPH % 30.2 % (24.0-44.0); MEAN CORPUSCULAR HEMOGLOBIN 30.2 pg (27.0-33.0); MEAN CORPUSCULAR HGB CONC 30.9 g/dl (32.0-36.5); MEAN CORPUSCULAR VOLUME 97.6 fl (80.0-96.0); MONO # 0.3 10^3/uL (0.0-0.8); MONO % 5.7 % (2.0-8.0); NEUTROPHILS # 2.7 10^3/uL (1.5-8.5); NEUTROPHILS % 62.3 % (36.0-66.0); RED BLOOD COUNT 3.71 10^6/uL (4.00-5.40); WHITE BLOOD COUNT 4.4 10^3/uL (4.0-10.0)
[2021-07-30 05:05] LABS: PLATELET COUNT, AUTOMATED 69 10^3/uL (150-450)
[2021-07-30 05:25] LABS: BLOOD UREA NITROGEN 10 MG/DL (7-18); CARBON DIOXIDE LEVEL 37 MEQ/L (21-32); CHLORIDE LEVEL 103 MEQ/L (98-107); CREATININE FOR GFR 0.45 MG/DL (0.55-1.30); GLOMERULAR FILTRATION RATE > 60.0 (>51); GLUCOSE, FASTING 139 MG/DL (70-100); POTASSIUM SERUM 3.6 MEQ/L (3.5-5.1); SODIUM LEVEL 143 MEQ/L (136-145)
[2021-07-30] MEDS: NYSTATIN 100,000 UNITS/GM TOPICAL PWD 15 GM TOP SCH ×2 (09:25→20:35)
[2021-07-30] MEDS: NYSTATIN 500,000 U/5 ML SUSP UDC SS SCH ×4 (09:25→20:36)
[2021-07-30] MEDS: HumaLOG INSULIN (NovoLOG) PER UNIT SC SCH ×4 (09:26→20:36)
[2021-07-30] MEDS: LEVEMIR (INSULIN DETEMIR) 1 UNITS/0.01ML SC SCH ×2 (09:26→20:35)
[2021-07-30] MEDS: LACTOBACILLUS ACIDOPHILUS CAP (BACID) PO SCH ×4 (09:27→20:36)
[2021-07-30] MEDS: PANTOPRAZOLE 40MG TAB (PROTONIX) PO SCH ×2 (09:27→20:36)
[2021-07-30] MEDS: guaiFENesin ER 600 MG TAB PO SCH ×2 (09:27→20:36)
[2021-07-30] MEDS: ceFAZolin SOD 2 GM in IV 1 EA IV SCH ×3 (09:27→23:22)
[2021-07-30] MEDS: DEXTROMETHORPHAN 60MG/10ML SUSP 90ML BTL(DELSYM) PO PRN (20:44)
[2021-07-31] VITALS (23 sets, daily range): BP systolic 119–171; BP diastolic 64–79; O2SAT 86–99
[2021-07-31] MEDS: LEVALBUTEROL 1.25 MG/0.5 ML CONCENTRATE NEB NEB SCH ×4 (02:24→20:10)
[2021-07-31] MEDS: SODIUM CHLORIDE 0.9% INJ 10 ML SYR IV SCH ×2 (04:54→17:22)
[2021-07-31 05:05] LABS: BASO % 0.2 % (0.0-1.0); EOS % 0.8 % (0.0-3.0); HEMATOCRIT 38.2 % (36.0-47.0); HEMOGLOBIN 11.7 g/dl (12.0-15.5); LYMPH # 1.4 10^3/uL (1.5-5.0); LYMPH % 28.1 % (24.0-44.0); MEAN CORPUSCULAR HEMOGLOBIN 29.8 pg (27.0-33.0); MEAN CORPUSCULAR HGB CONC 30.6 g/dl (32.0-36.5); MEAN CORPUSCULAR VOLUME 97.4 fl (80.0-96.0); MONO # 0.3 10^3/uL (0.0-0.8); MONO % 5.1 % (2.0-8.0); NEUTROPHILS # 3.2 10^3/uL (1.5-8.5); RED BLOOD COUNT 3.92 10^6/uL (4.00-5.40); WHITE BLOOD COUNT 4.9 10^3/uL (4.0-10.0)
[2021-07-31 05:07] LABS: PLATELET COUNT, AUTOMATED 75 10^3/uL (150-450)
[2021-07-31 05:26] LABS: BLOOD UREA NITROGEN 11 MG/DL (7-18); CALCIUM LEVEL 8.9 MG/DL (8.5-10.1); CARBON DIOXIDE LEVEL 32 MEQ/L (21-32); CHLORIDE LEVEL 107 MEQ/L (98-107); CREATININE FOR GFR 0.79 MG/DL (0.55-1.30); GLOMERULAR FILTRATION RATE > 60.0 (>51); GLUCOSE, FASTING 211 MG/DL (70-100); POTASSIUM SERUM 3.8 MEQ/L (3.5-5.1); SODIUM LEVEL 142 MEQ/L (136-145)
[2021-07-31] MEDS: NYSTATIN 500,000 U/5 ML SUSP UDC SS SCH ×4 (09:51→20:20)
[2021-07-31] MEDS: guaiFENesin ER 600 MG TAB PO SCH ×2 (09:51→20:20)
[2021-07-31] MEDS: PANTOPRAZOLE 40MG TAB (PROTONIX) PO SCH ×2 (09:51→20:20)
[2021-07-31] MEDS: LACTOBACILLUS ACIDOPHILUS CAP (BACID) PO SCH ×4 (09:51→20:20)
[2021-07-31] MEDS: LEVEMIR (INSULIN DETEMIR) 1 UNITS/0.01ML SC SCH ×2 (09:51→20:20)
[2021-07-31] MEDS: NYSTATIN 100,000 UNITS/GM TOPICAL PWD 15 GM TOP SCH ×2 (09:52→20:21)
[2021-07-31] MEDS: ceFAZolin SOD 2 GM in IV 1 EA IV SCH ×3 (09:52→23:03)
[2021-07-31] MEDS: HumaLOG INSULIN (NovoLOG) PER UNIT SC SCH ×4 (10:04→20:20)
[2021-07-31] MEDS ORDERED: BISACODYL 10 MG SUPP PR PRN (12:10)
[2021-07-31] MEDS ORDERED: BISACODYL 10 MG SUPP PR ONE (12:10)
[2021-07-31] MEDS: SENOKOT S TAB PO SCH ×2 (14:03→20:20)
[2021-07-31] MEDS ORDERED: FUROSEMIDE 40MG/4ML VIAL (J1940) IV ONE (16:35)
[2021-07-31] MEDS: ACETAMINOPHEN TAB 650MG DOSE (2X325MG) PO PRN (17:23)
[2021-07-31] MEDS ORDERED: methylPREDNISolone 125MG 2ML VIAL IV ONE (18:50)
[2021-08-01] VITALS (28 sets, daily range): BP systolic 128–148; BP diastolic 61–76; O2SAT 90–99
[2021-08-01] MEDS: LEVALBUTEROL 1.25 MG/0.5 ML CONCENTRATE NEB NEB SCH ×3 (02:02→15:16)
[2021-08-01] MEDS: SODIUM CHLORIDE 0.9% INJ 10 ML SYR IV SCH ×2 (05:24→17:27)
[2021-08-01 05:39] LABS: BASO % 0.2 % (0.0-1.0); HEMOGLOBIN 11.5 g/dl (12.0-15.5); LYMPH % 22.6 % (24.0-44.0); MEAN CORPUSCULAR HEMOGLOBIN 29.9 pg (27.0-33.0); MEAN CORPUSCULAR HGB CONC 31.1 g/dl (32.0-36.5); MEAN CORPUSCULAR VOLUME 96.1 fl (80.0-96.0); MONO # 0.1 10^3/uL (0.0-0.8); MONO % 1.4 % (2.0-8.0); NEUTROPHILS # 3.3 10^3/uL (1.5-8.5); NEUTROPHILS % 74.9 % (36.0-66.0); RED BLOOD COUNT 3.85 10^6/uL (4.00-5.40); WHITE BLOOD COUNT 4.4 10^3/uL (4.0-10.0)
[2021-08-01 05:40] LABS: PLATELET COUNT, AUTOMATED 69 10^3/uL (150-450)
[2021-08-01 06:08] LABS: BLOOD UREA NITROGEN 17 MG/DL (7-18); CALCIUM LEVEL 8.9 MG/DL (8.5-10.1); CARBON DIOXIDE LEVEL 37 MEQ/L (21-32); CHLORIDE LEVEL 103 MEQ/L (98-107); CREATININE FOR GFR 0.55 MG/DL (0.55-1.30); GLOMERULAR FILTRATION RATE > 60.0 (>51); GLUCOSE, FASTING 251 MG/DL (70-100); SODIUM LEVEL 142 MEQ/L (136-145)
[2021-08-01] MEDS: guaiFENesin ER 600 MG TAB PO SCH ×2 (08:37→20:25)
[2021-08-01] MEDS: PANTOPRAZOLE 40MG TAB (PROTONIX) PO SCH ×2 (08:37→20:25)
[2021-08-01] MEDS: SENOKOT S TAB PO SCH ×2 (08:37→20:26)
[2021-08-01] MEDS: LACTOBACILLUS ACIDOPHILUS CAP (BACID) PO SCH ×4 (08:37→20:25)
[2021-08-01] MEDS: HumaLOG INSULIN (NovoLOG) PER UNIT SC SCH ×4 (08:38→20:25)
[2021-08-01] MEDS: NYSTATIN 500,000 U/5 ML SUSP UDC SS SCH ×4 (08:38→20:25)
[2021-08-01] MEDS: ceFAZolin SOD 2 GM in IV 1 EA IV SCH ×2 (08:39→15:19)
[2021-08-01] MEDS: LEVEMIR (INSULIN DETEMIR) 1 UNITS/0.01ML SC SCH ×2 (08:39→20:25)
[2021-08-01] MEDS: NYSTATIN 100,000 UNITS/GM TOPICAL PWD 15 GM TOP SCH ×2 (08:40→20:24)
[2021-08-01] MEDS ORDERED: methylPREDNISolone 40MG 1ML VIAL IV ONE (16:45)
[2021-08-01 20:33] LABS: C REACTIVE PROTEIN QUANTITATIV 1.14 MG/DL (0.00-0.30)
[2021-08-02] VITALS (30 sets, daily range): BP systolic 125–144; BP diastolic 62–72; O2SAT 80–100
[2021-08-02] MEDS: ceFAZolin SOD 2 GM in IV 1 EA IV SCH ×3 (00:37→15:35)
[2021-08-02 04:14] LABS: BASO % 0.2 % (0.0-1.0); HEMATOCRIT 34.8 % (36.0-47.0); HEMOGLOBIN 11.1 g/dl (12.0-15.5); LYMPH # 0.8 10^3/uL (1.5-5.0); LYMPH % 15.5 % (24.0-44.0); MEAN CORPUSCULAR HEMOGLOBIN 30.5 pg (27.0-33.0); MEAN CORPUSCULAR HGB CONC 31.9 g/dl (32.0-36.5); MEAN CORPUSCULAR VOLUME 95.6 fl (80.0-96.0); MONO # 0.2 10^3/uL (0.0-0.8); MONO % 2.9 % (2.0-8.0); NEUTROPHILS # 4.2 10^3/uL (1.5-8.5); NEUTROPHILS % 80.3 % (36.0-66.0); RED BLOOD COUNT 3.64 10^6/uL (4.00-5.40); WHITE BLOOD COUNT 5.2 10^3/uL (4.0-10.0)
[2021-08-02 04:15] LABS: PLATELET COUNT, AUTOMATED 70 10^3/uL (150-450)
[2021-08-02 04:31] LABS: BLOOD UREA NITROGEN 16 MG/DL (7-18); CARBON DIOXIDE LEVEL 35 MEQ/L (21-32); CHLORIDE LEVEL 104 MEQ/L (98-107); CREATININE FOR GFR 0.42 MG/DL (0.55-1.30); GLOMERULAR FILTRATION RATE > 60.0 (>51); GLUCOSE, FASTING 223 MG/DL (70-100); POTASSIUM SERUM 3.9 MEQ/L (3.5-5.1); SODIUM LEVEL 142 MEQ/L (136-145)
[2021-08-02] MEDS: SODIUM CHLORIDE 0.9% INJ 10 ML SYR IV SCH ×2 (05:17→17:12)
[2021-08-02] MEDS: guaiFENesin ER 600 MG TAB PO SCH ×2 (08:05→21:16)
[2021-08-02] MEDS: LACTOBACILLUS ACIDOPHILUS CAP (BACID) PO SCH ×4 (08:05→21:16)
[2021-08-02] MEDS: SENOKOT S TAB PO SCH ×2 (08:05→21:16)
[2021-08-02] MEDS: PANTOPRAZOLE 40MG TAB (PROTONIX) PO SCH ×2 (08:05→21:16)
[2021-08-02] MEDS: NYSTATIN 500,000 U/5 ML SUSP UDC SS SCH ×4 (08:05→21:15)
[2021-08-02] MEDS: HumaLOG INSULIN (NovoLOG) PER UNIT SC SCH ×4 (08:06→21:15)
[2021-08-02] MEDS: NYSTATIN 100,000 UNITS/GM TOPICAL PWD 15 GM TOP SCH ×2 (08:07→21:15)
[2021-08-02] MEDS: methylPREDNISolone 40MG 1ML VIAL IV SCH (08:14)
[2021-08-02] MEDS ORDERED: LEVEMIR (INSULIN DETEMIR) 1 UNITS/0.01ML SC SCH (09:00)
[2021-08-02] MEDS: LEVALBUTEROL 1.25 MG/0.5 ML CONCENTRATE NEB NEB SCH ×2 (13:38→19:37)
[2021-08-02] MEDS: LEVEMIR (INSULIN DETEMIR) 1 UNITS/0.01ML SC SCH (21:16)
[2021-08-03] VITALS (27 sets, daily range): BP systolic 114–155; BP diastolic 57–81; O2SAT 90–99
[2021-08-03] MEDS: ceFAZolin SOD 2 GM in IV 1 EA IV SCH ×3 (00:42→16:26)
[2021-08-03] MEDS: LEVALBUTEROL 1.25 MG/0.5 ML CONCENTRATE NEB NEB SCH ×4 (02:48→20:22)
[2021-08-03 05:14] LABS: BASO % 0.2 % (0.0-1.0); EOS % 0.6 % (0.0-3.0); HEMATOCRIT 36.2 % (36.0-47.0); HEMOGLOBIN 11.2 g/dl (12.0-15.5); LYMPH # 1.1 10^3/uL (1.5-5.0); LYMPH % 21.9 % (24.0-44.0); MEAN CORPUSCULAR HEMOGLOBIN 30.3 pg (27.0-33.0); MEAN CORPUSCULAR HGB CONC 30.9 g/dl (32.0-36.5); MEAN CORPUSCULAR VOLUME 97.8 fl (80.0-96.0); MONO # 0.3 10^3/uL (0.0-0.8); NEUTROPHILS # 3.6 10^3/uL (1.5-8.5); NEUTROPHILS % 70.9 % (36.0-66.0)
[2021-08-03 05:16] LABS: PLATELET COUNT, AUTOMATED 69 10^3/uL (150-450)
[2021-08-03 05:38] LABS: BLOOD UREA NITROGEN 15 MG/DL (7-18); CALCIUM LEVEL 9.1 MG/DL (8.5-10.1); CARBON DIOXIDE LEVEL 36 MEQ/L (21-32); CHLORIDE LEVEL 106 MEQ/L (98-107); CREATININE FOR GFR 0.41 MG/DL (0.55-1.30); GLOMERULAR FILTRATION RATE > 60.0 (>51); GLUCOSE, FASTING 71 MG/DL (70-100); POTASSIUM SERUM 3.6 MEQ/L (3.5-5.1); SODIUM LEVEL 142 MEQ/L (136-145)
[2021-08-03] MEDS: SODIUM CHLORIDE 0.9% INJ 10 ML SYR IV SCH ×2 (05:56→17:23)
[2021-08-03] MEDS: HumaLOG INSULIN (NovoLOG) PER UNIT SC SCH ×4 (07:30→20:06)
[2021-08-03] MEDS: LEVEMIR (INSULIN DETEMIR) 1 UNITS/0.01ML SC SCH ×2 (07:34→21:18)
[2021-08-03] MEDS: guaiFENesin ER 600 MG TAB PO SCH ×2 (08:16→21:17)
[2021-08-03] MEDS: PANTOPRAZOLE 40MG TAB (PROTONIX) PO SCH ×2 (08:16→21:18)
[2021-08-03] MEDS: LACTOBACILLUS ACIDOPHILUS CAP (BACID) PO SCH ×4 (08:16→21:17)
[2021-08-03] MEDS: NYSTATIN 500,000 U/5 ML SUSP UDC SS SCH (08:16)
[2021-08-03] MEDS: SENOKOT S TAB PO SCH ×2 (08:17→21:18)
[2021-08-03] MEDS: methylPREDNISolone 40MG 1ML VIAL IV SCH (08:17)
[2021-08-03] MEDS: NYSTATIN 100,000 UNITS/GM TOPICAL PWD 15 GM TOP SCH ×2 (08:17→21:18)
[2021-08-04] VITALS (10 sets, daily range): BP systolic 123–155; BP diastolic 66–79; O2SAT 94–100
[2021-08-04] MEDS: ceFAZolin SOD 2 GM in IV 1 EA IV SCH ×3 (00:50→15:57)
[2021-08-04] MEDS: LEVALBUTEROL 1.25 MG/0.5 ML CONCENTRATE NEB NEB SCH ×4 (02:14→20:17)
[2021-08-04 05:17] LABS: HEMATOCRIT 39.7 % (36.0-47.0); HEMOGLOBIN 12.4 g/dl (12.0-15.5); MEAN CORPUSCULAR HGB CONC 31.2 g/dl (32.0-36.5); MEAN CORPUSCULAR VOLUME 96.1 fl (80.0-96.0); RED BLOOD COUNT 4.13 10^6/uL (4.00-5.40); WHITE BLOOD COUNT 6.4 10^3/uL (4.0-10.0)
[2021-08-04 05:19] LABS: PLATELET COUNT, AUTOMATED 83 10^3/uL (150-450)
[2021-08-04 05:24] LABS: BLOOD UREA NITROGEN 17 MG/DL (7-18); CARBON DIOXIDE LEVEL 35 MEQ/L (21-32); CHLORIDE LEVEL 104 MEQ/L (98-107); CREATININE FOR GFR 0.54 MG/DL (0.55-1.30); GLOMERULAR FILTRATION RATE > 60.0 (>51); GLUCOSE, FASTING 143 MG/DL (70-100); POTASSIUM SERUM 3.8 MEQ/L (3.5-5.1); SODIUM LEVEL 141 MEQ/L (136-145)
[2021-08-04] MEDS: SODIUM CHLORIDE 0.9% INJ 10 ML SYR IV SCH ×2 (05:51→17:11)
[2021-08-04] MEDS: LEVEMIR (INSULIN DETEMIR) 1 UNITS/0.01ML SC SCH ×2 (08:03→21:14)
[2021-08-04] MEDS: HumaLOG INSULIN (NovoLOG) PER UNIT SC SCH ×4 (08:16→21:14)
[2021-08-04] MEDS: LACTOBACILLUS ACIDOPHILUS CAP (BACID) PO SCH ×4 (08:17→21:14)
[2021-08-04] MEDS: guaiFENesin ER 600 MG TAB PO SCH ×2 (08:17→21:14)
[2021-08-04] MEDS: NYSTATIN 100,000 UNITS/GM TOPICAL PWD 15 GM TOP SCH ×2 (08:17→21:13)
[2021-08-04] MEDS: PANTOPRAZOLE 40MG TAB (PROTONIX) PO SCH ×2 (08:18→21:14)
[2021-08-04] MEDS: SENOKOT S TAB PO SCH ×2 (08:18→21:00)
[2021-08-04] MEDS: methylPREDNISolone 40MG 1ML VIAL IV SCH (08:18)
[2021-08-05] VITALS (14 sets, daily range): BP systolic 111–141; BP diastolic 57–73; O2SAT 77–100
[2021-08-05] MEDS: ceFAZolin SOD 2 GM in IV 1 EA IV SCH ×4 (00:24→23:41)
[2021-08-05] MEDS: LEVALBUTEROL 1.25 MG/0.5 ML CONCENTRATE NEB NEB SCH ×4 (01:00→19:32)
[2021-08-05 04:13] LABS: HEMATOCRIT 37.9 % (36.0-47.0); HEMOGLOBIN 11.8 g/dl (12.0-15.5); MEAN CORPUSCULAR HEMOGLOBIN 30.1 pg (27.0-33.0); MEAN CORPUSCULAR HGB CONC 31.1 g/dl (32.0-36.5); MEAN CORPUSCULAR VOLUME 96.7 fl (80.0-96.0); RED BLOOD COUNT 3.92 10^6/uL (4.00-5.40); WHITE BLOOD COUNT 4.6 10^3/uL (4.0-10.0)
[2021-08-05 04:28] LABS: PLATELET COUNT, AUTOMATED 62 10^3/uL (150-450)
[2021-08-05 04:38] LABS: BLOOD UREA NITROGEN 14 MG/DL (7-18); CALCIUM LEVEL 8.8 MG/DL (8.5-10.1); CARBON DIOXIDE LEVEL 36 MEQ/L (21-32); CHLORIDE LEVEL 105 MEQ/L (98-107); CREATININE FOR GFR 0.44 MG/DL (0.55-1.30); GLOMERULAR FILTRATION RATE > 60.0 (>51); GLUCOSE, FASTING 128 MG/DL (70-100); POTASSIUM SERUM 3.6 MEQ/L (3.5-5.1); SODIUM LEVEL 144 MEQ/L (136-145)
[2021-08-05] MEDS: SODIUM CHLORIDE 0.9% INJ 10 ML SYR IV SCH ×2 (06:16→17:08)
[2021-08-05] MEDS: PANTOPRAZOLE 40MG TAB (PROTONIX) PO SCH ×2 (07:51→20:52)
[2021-08-05] MEDS: methylPREDNISolone 40MG 1ML VIAL IV SCH (07:51)
[2021-08-05] MEDS: HumaLOG INSULIN (NovoLOG) PER UNIT SC SCH ×4 (07:51→20:56)
[2021-08-05] MEDS: LEVEMIR (INSULIN DETEMIR) 1 UNITS/0.01ML SC SCH ×2 (07:52→20:52)
[2021-08-05] MEDS: guaiFENesin ER 600 MG TAB PO SCH ×2 (07:52→20:52)
[2021-08-05] MEDS: LACTOBACILLUS ACIDOPHILUS CAP (BACID) PO SCH ×4 (07:52→20:52)
[2021-08-05] MEDS: SENOKOT S TAB PO SCH ×2 (07:52→20:52)
[2021-08-05] MEDS: NYSTATIN 100,000 UNITS/GM TOPICAL PWD 15 GM TOP SCH ×2 (07:55→21:00)
[2021-08-05] MEDS: CLOTRIMAZOLE 10 MG TROCHE PO SCH ×2 (18:37→20:52)
[2021-08-06] VITALS (19 sets, daily range): BP systolic 110–134; BP diastolic 58–78; O2SAT 89–100
[2021-08-06] MEDS: SODIUM CHLORIDE 0.9% INJ 10 ML SYR IV PRN ×3 (00:42→14:40)
[2021-08-06] MEDS: LEVALBUTEROL 1.25 MG/0.5 ML CONCENTRATE NEB NEB SCH ×4 (02:16→19:23)
[2021-08-06] MEDS: SODIUM CHLORIDE 0.9% INJ 10 ML SYR IV SCH ×2 (05:28→17:21)
[2021-08-06] MEDS: HumaLOG INSULIN (NovoLOG) PER UNIT SC SCH ×4 (08:06→20:40)
[2021-08-06] MEDS: methylPREDNISolone 40MG 1ML VIAL IV SCH (08:07)
[2021-08-06] MEDS: NYSTATIN 100,000 UNITS/GM TOPICAL PWD 15 GM TOP SCH ×2 (08:07→20:41)
[2021-08-06] MEDS: LEVEMIR (INSULIN DETEMIR) 1 UNITS/0.01ML SC SCH ×2 (08:07→20:37)
[2021-08-06] MEDS: ceFAZolin SOD 2 GM in IV 1 EA IV SCH ×2 (08:08→15:09)
[2021-08-06] MEDS: LACTOBACILLUS ACIDOPHILUS CAP (BACID) PO SCH ×4 (08:08→20:36)
[2021-08-06] MEDS: guaiFENesin ER 600 MG TAB PO SCH ×2 (08:08→20:36)
[2021-08-06] MEDS: SENOKOT S TAB PO SCH ×2 (08:08→20:36)
[2021-08-06] MEDS: CLOTRIMAZOLE 10 MG TROCHE PO SCH ×4 (08:08→20:36)
[2021-08-06] MEDS: PANTOPRAZOLE 40MG TAB (PROTONIX) PO SCH ×2 (08:08→20:36)
[2021-08-06] MEDS: ALPRAZolam 0.25 MG TAB PO PRN (13:21)
[2021-08-06] MEDS: methylPREDNISolone 1,000 MG, VIAL MATE ADAPTER 1 EACH in NS 250 ML IV SCH (13:21)
[2021-08-06] MEDS ORDERED: LEVEMIR (INSULIN DETEMIR) 1 UNITS/0.01ML SC SCH (21:00)
[2021-08-07] VITALS (20 sets, daily range): BP systolic 129–155; BP diastolic 61–80; O2SAT 82–98
[2021-08-07] MEDS: ceFAZolin SOD 2 GM in IV 1 EA IV SCH ×4 (00:01→23:09)
[2021-08-07] MEDS: SODIUM CHLORIDE 0.9% INJ 10 ML SYR IV PRN ×3 (01:05→13:34)
[2021-08-07] MEDS: LEVALBUTEROL 1.25 MG/0.5 ML CONCENTRATE NEB NEB SCH ×4 (01:26→17:53)
[2021-08-07] MEDS: SODIUM CHLORIDE 0.9% INJ 10 ML SYR IV SCH ×2 (05:52→17:34)
[2021-08-07 07:53] LABS: HEMATOCRIT 37.4 % (36.0-47.0); HEMOGLOBIN 11.6 g/dl (12.0-15.5); LYMPH # 0.6 10^3/uL (1.5-5.0); LYMPH % 11.6 % (24.0-44.0); MEAN CORPUSCULAR HEMOGLOBIN 30.2 pg (27.0-33.0); MEAN CORPUSCULAR VOLUME 97.4 fl (80.0-96.0); MONO # 0.1 10^3/uL (0.0-0.8); MONO % 2.3 % (2.0-8.0); NEUTROPHILS # 4.1 10^3/uL (1.5-8.5); NEUTROPHILS % 85.5 % (36.0-66.0); RED BLOOD COUNT 3.84 10^6/uL (4.00-5.40); WHITE BLOOD COUNT 4.7 10^3/uL (4.0-10.0)
[2021-08-07 07:54] LABS: PLATELET COUNT, AUTOMATED 67 10^3/uL (150-450)
[2021-08-07 08:09] LABS: BLOOD UREA NITROGEN 15 MG/DL (7-18); CARBON DIOXIDE LEVEL 33 MEQ/L (21-32); CHLORIDE LEVEL 101 MEQ/L (98-107); CREATININE FOR GFR 0.55 MG/DL (0.55-1.30); GLOMERULAR FILTRATION RATE > 60.0 (>51); GLUCOSE, FASTING 292 MG/DL (70-100); SODIUM LEVEL 140 MEQ/L (136-145)
[2021-08-07] MEDS: LEVEMIR (INSULIN DETEMIR) 1 UNITS/0.01ML SC SCH ×2 (08:32→20:14)
[2021-08-07] MEDS: HumaLOG INSULIN (NovoLOG) PER UNIT SC SCH ×4 (08:32→20:14)
[2021-08-07] MEDS: guaiFENesin ER 600 MG TAB PO SCH ×2 (08:33→20:11)
[2021-08-07] MEDS: NYSTATIN 100,000 UNITS/GM TOPICAL PWD 15 GM TOP SCH ×2 (08:33→20:15)
[2021-08-07] MEDS: CLOTRIMAZOLE 10 MG TROCHE PO SCH ×4 (08:33→20:10)
[2021-08-07] MEDS: PANTOPRAZOLE 40MG TAB (PROTONIX) PO SCH ×2 (08:33→20:10)
[2021-08-07] MEDS: LACTOBACILLUS ACIDOPHILUS CAP (BACID) PO SCH ×4 (08:34→20:11)
[2021-08-07] MEDS: SENOKOT S TAB PO SCH ×2 (08:34→20:10)
[2021-08-07] MEDS: methylPREDNISolone 1,000 MG, VIAL MATE ADAPTER 1 EACH in NS 250 ML IV SCH (12:05)
[2021-08-07] MEDS: ALPRAZolam 0.25 MG TAB PO PRN (14:36)
[2021-08-08] VITALS (22 sets, daily range): BP systolic 126–159; BP diastolic 61–80; O2SAT 86–97
[2021-08-08] MEDS: LEVALBUTEROL 1.25 MG/0.5 ML CONCENTRATE NEB NEB SCH ×4 (01:48→19:53)
[2021-08-08] MEDS: SODIUM CHLORIDE 0.9% INJ 10 ML SYR IV SCH ×2 (04:42→17:43)
[2021-08-08 05:06] LABS: HEMATOCRIT 32.1 % (36.0-47.0); LYMPH # 0.4 10^3/uL (1.5-5.0); LYMPH % 12.9 % (24.0-44.0); MEAN CORPUSCULAR HEMOGLOBIN 30.4 pg (27.0-33.0); MEAN CORPUSCULAR HGB CONC 31.2 g/dl (32.0-36.5); MEAN CORPUSCULAR VOLUME 97.6 fl (80.0-96.0); MONO # 0.1 10^3/uL (0.0-0.8); MONO % 3.6 % (2.0-8.0); NEUTROPHILS # 2.3 10^3/uL (1.5-8.5); NEUTROPHILS % 82.4 % (36.0-66.0); RED BLOOD COUNT 3.29 10^6/uL (4.00-5.40); WHITE BLOOD COUNT 2.8 10^3/uL (4.0-10.0)
[2021-08-08 05:10] LABS: PLATELET COUNT, AUTOMATED 49 10^3/uL (150-450)
[2021-08-08 05:22] LABS: BLOOD UREA NITROGEN 16 MG/DL (7-18); C REACTIVE PROTEIN QUANTITATIV 0.89 MG/DL (0.00-0.30); CALCIUM LEVEL 8.7 MG/DL (8.5-10.1); CARBON DIOXIDE LEVEL 37 MEQ/L (21-32); CHLORIDE LEVEL 107 MEQ/L (98-107); CREATININE FOR GFR 0.38 MG/DL (0.55-1.30); GLOMERULAR FILTRATION RATE > 60.0 (>51); GLUCOSE, FASTING 233 MG/DL (70-100); POTASSIUM SERUM 4.1 MEQ/L (3.5-5.1); SODIUM LEVEL 143 MEQ/L (136-145)
[2021-08-08 05:55] LABS: ERYTHROCYTE SEDIMENTATION RATE 34 mm/hr (0-30)
[2021-08-08] MEDS: LEVEMIR (INSULIN DETEMIR) 1 UNITS/0.01ML SC SCH ×2 (08:44→21:44)
[2021-08-08] MEDS: ceFAZolin SOD 2 GM in IV 1 EA IV SCH ×2 (08:45→17:43)
[2021-08-08] MEDS: HumaLOG INSULIN (NovoLOG) PER UNIT SC SCH ×4 (08:45→21:00)
[2021-08-08] MEDS: PANTOPRAZOLE 40MG TAB (PROTONIX) PO SCH ×2 (08:46→21:43)
[2021-08-08] MEDS: LACTOBACILLUS ACIDOPHILUS CAP (BACID) PO SCH ×4 (08:46→21:45)
[2021-08-08] MEDS: CLOTRIMAZOLE 10 MG TROCHE PO SCH ×4 (08:46→21:43)
[2021-08-08] MEDS: SENOKOT S TAB PO SCH ×2 (08:46→21:45)
[2021-08-08] MEDS: guaiFENesin ER 600 MG TAB PO SCH ×2 (08:46→21:45)
[2021-08-08] MEDS: NYSTATIN 100,000 UNITS/GM TOPICAL PWD 15 GM TOP SCH ×2 (08:47→21:46)
[2021-08-08] MEDS: ACETAMINOPHEN TAB 650MG DOSE (2X325MG) PO PRN (10:11)
[2021-08-08] MEDS: methylPREDNISolone 1,000 MG, VIAL MATE ADAPTER 1 EACH in NS 250 ML IV SCH (13:40)
[2021-08-08] MEDS: ALPRAZolam 0.25 MG TAB PO PRN (21:45)
[2021-08-08] MEDS: DEXTROMETHORPHAN 60MG/10ML SUSP 90ML BTL(DELSYM) PO PRN (23:43)
[2021-08-09] VITALS (26 sets, daily range): BP systolic 143–177; BP diastolic 65–93; PULSE 114; O2SAT 85–98
[2021-08-09] MEDS: ceFAZolin SOD 2 GM in IV 1 EA IV SCH ×4 (00:04→23:07)
[2021-08-09] MEDS: LEVALBUTEROL 1.25 MG/0.5 ML CONCENTRATE NEB NEB SCH ×4 (01:36→20:33)
[2021-08-09] MEDS: SODIUM CHLORIDE 0.9% INJ 10 ML SYR IV SCH ×2 (04:33→18:37)
[2021-08-09 04:51] LABS: HEMATOCRIT 35.9 % (36.0-47.0); HEMOGLOBIN 11.3 g/dl (12.0-15.5); LYMPH # 0.3 10^3/uL (1.5-5.0); LYMPH % 9.6 % (24.0-44.0); MEAN CORPUSCULAR HEMOGLOBIN 30.5 pg (27.0-33.0); MEAN CORPUSCULAR HGB CONC 31.5 g/dl (32.0-36.5); MEAN CORPUSCULAR VOLUME 96.8 fl (80.0-96.0); MONO # 0.1 10^3/uL (0.0-0.8); MONO % 2.2 % (2.0-8.0); NEUTROPHILS # 2.8 10^3/uL (1.5-8.5); NEUTROPHILS % 87.6 % (36.0-66.0); RED BLOOD COUNT 3.71 10^6/uL (4.00-5.40); WHITE BLOOD COUNT 3.2 10^3/uL (4.0-10.0)
[2021-08-09 04:52] LABS: PLATELET COUNT, AUTOMATED 50 10^3/uL (150-450)
[2021-08-09 05:11] LABS: BLOOD UREA NITROGEN 14 MG/DL (7-18); CALCIUM LEVEL 8.9 MG/DL (8.5-10.1); CARBON DIOXIDE LEVEL 36 MEQ/L (21-32); CHLORIDE LEVEL 109 MEQ/L (98-107); CREATININE FOR GFR 0.41 MG/DL (0.55-1.30); GLOMERULAR FILTRATION RATE > 60.0 (>51); GLUCOSE, FASTING 114 MG/DL (70-100); POTASSIUM SERUM 3.4 MEQ/L (3.5-5.1); SODIUM LEVEL 146 MEQ/L (136-145)
[2021-08-09] MEDS: HumaLOG INSULIN (NovoLOG) PER UNIT SC SCH ×4 (07:30→20:24)
[2021-08-09] MEDS: LEVEMIR (INSULIN DETEMIR) 1 UNITS/0.01ML SC SCH ×2 (08:20→20:23)
[2021-08-09] MEDS: SENOKOT S TAB PO SCH ×2 (08:26→20:23)
[2021-08-09] MEDS: predniSONE 20 MG TAB PO SCH (08:26)
[2021-08-09] MEDS: CLOTRIMAZOLE 10 MG TROCHE PO SCH ×4 (08:27→20:24)
[2021-08-09] MEDS: LACTOBACILLUS ACIDOPHILUS CAP (BACID) PO SCH ×4 (08:27→20:23)
[2021-08-09] MEDS: ALPRAZolam 0.25 MG TAB PO PRN ×2 (08:27→19:52)
[2021-08-09] MEDS: NYSTATIN 100,000 UNITS/GM TOPICAL PWD 15 GM TOP SCH ×2 (08:27→20:24)
[2021-08-09] MEDS: guaiFENesin ER 600 MG TAB PO SCH ×2 (08:27→20:23)
[2021-08-09] MEDS: PANTOPRAZOLE 40MG TAB (PROTONIX) PO SCH ×2 (08:27→20:24)
[2021-08-09 16:33] LABS: CK-MB VALUE MASS < 1.0 NG/ML (<3.6); CPK CREATINE PHOSPHOKINASE 39 U/L (26-192); MB/CK RELATIVE INDEX 2.56 (< OR =4)
[2021-08-09] MEDS ORDERED: MORPHINE 10MG/0.5ML ORAL CONCENTRATE SOLUTION U/D SL ONE (17:15)
[2021-08-09] MEDS ORDERED: CHLORASEPTIC SPRAY MT PRN (17:15)
[2021-08-09] MEDS: DEXTROMETHORPHAN 60MG/10ML SUSP 90ML BTL(DELSYM) PO PRN (19:52)
[2021-08-10] VITALS (27 sets, daily range): BP systolic 130–146; BP diastolic 60–79; O2SAT 85–98
[2021-08-10] MEDS: SODIUM CHLORIDE 0.9% INJ 10 ML SYR IV SCH ×2 (04:17→18:14)
[2021-08-10] MEDS: LEVALBUTEROL 1.25 MG/0.5 ML CONCENTRATE NEB NEB SCH ×2 (04:26→08:00)
[2021-08-10 05:42] LABS: BASO % 0.2 % (0.0-1.0); EOS % 0.2 % (0.0-3.0); HEMATOCRIT 38.6 % (36.0-47.0); HEMOGLOBIN 12.3 g/dl (12.0-15.5); LYMPH # 0.5 10^3/uL (1.5-5.0); LYMPH % 8.8 % (24.0-44.0); MEAN CORPUSCULAR HEMOGLOBIN 30.2 pg (27.0-33.0); MEAN CORPUSCULAR HGB CONC 31.9 g/dl (32.0-36.5); MEAN CORPUSCULAR VOLUME 94.8 fl (80.0-96.0); MONO # 0.2 10^3/uL (0.0-0.8); NEUTROPHILS # 4.9 10^3/uL (1.5-8.5); NEUTROPHILS % 86.9 % (36.0-66.0); RED BLOOD COUNT 4.07 10^6/uL (4.00-5.40); WHITE BLOOD COUNT 5.7 10^3/uL (4.0-10.0)
[2021-08-10 05:44] LABS: PLATELET COUNT, AUTOMATED 65 10^3/uL (150-450)
[2021-08-10 06:02] LABS: BLOOD UREA NITROGEN 11 MG/DL (7-18); CALCIUM LEVEL 9.3 MG/DL (8.5-10.1); CARBON DIOXIDE LEVEL 34 MEQ/L (21-32); CHLORIDE LEVEL 108 MEQ/L (98-107); CREATININE FOR GFR 0.39 MG/DL (0.55-1.30); GLOMERULAR FILTRATION RATE > 60.0 (>51); GLUCOSE, FASTING 148 MG/DL (70-100); SODIUM LEVEL 143 MEQ/L (136-145)
[2021-08-10] MEDS ORDERED: POTASSIUM CHLORIDE 10MEQ SR TABLET PO ONE (07:00)
[2021-08-10] MEDS: LACTOBACILLUS ACIDOPHILUS CAP (BACID) PO SCH ×3 (07:34→17:11)
[2021-08-10] MEDS: HumaLOG INSULIN (NovoLOG) PER UNIT SC SCH ×3 (07:35→17:16)
[2021-08-10] MEDS: ceFAZolin SOD 2 GM in IV 1 EA IV SCH ×2 (07:35→15:27)
[2021-08-10] MEDS: ALPRAZolam 0.25 MG TAB PO PRN ×2 (08:07→18:13)
[2021-08-10] MEDS: PANTOPRAZOLE 40MG TAB (PROTONIX) PO SCH (08:12)
[2021-08-10] MEDS: predniSONE 20 MG TAB PO SCH (08:12)
[2021-08-10] MEDS: guaiFENesin ER 600 MG TAB PO SCH (08:12)
[2021-08-10] MEDS: SENOKOT S TAB PO SCH (08:12)
[2021-08-10] MEDS: CLOTRIMAZOLE 10 MG TROCHE PO SCH ×3 (08:12→16:27)
[2021-08-10] MEDS: NYSTATIN 100,000 UNITS/GM TOPICAL PWD 15 GM TOP SCH (08:13)
[2021-08-10] MEDS: DEXTROMETHORPHAN 60MG/10ML SUSP 90ML BTL(DELSYM) PO PRN (08:13)
[2021-08-10] MEDS ORDERED: LEVEMIR (INSULIN DETEMIR) 1 UNITS/0.01ML SC SCH ×2 (09:00→21:00)
[2021-08-10] MEDS: MORPHINE 10MG/0.5ML ORAL CONCENTRATE SOLUTION U/D SL PRN ×2 (14:14→18:13)
[2021-08-10] MEDS ORDERED: CLOT10TR PO (15:11)
[2021-08-10] MEDS ORDERED: LANTINJ4 SC (15:11)
[2021-08-10] MEDS ORDERED: LEVA12INH NEB (15:11)
[2021-08-10] MEDS ORDERED: HYDR-3715 PO (15:11)
[2021-08-10] MEDS ORDERED: CHLORSP MT (15:11)
[2021-08-10] MEDS ORDERED: NYST10006 TOP (15:11)
[2021-08-10] MEDS ORDERED: INSUHUMDS SC (15:11)
[2021-08-10] MEDS ORDERED: SENN-52 PO (15:11)
[2021-08-10] MEDS ORDERED: DELS30LI8 PO (15:11)
[2021-08-10] MEDS ORDERED: BISA10SU PR (15:11)
[2021-08-10] MEDS ORDERED: PANT40TA29 PO (15:11)
[2021-08-10] MEDS ORDERED: MORP1SOL SL (15:11)
[2021-08-10] MEDS ORDERED: PRED20TA PO (15:11)
[2021-08-10] MEDS ORDERED: ALPR0.25 PO (15:11)
== END 2021-08-10 20:42 | disposition short-term general hospital (02) | DRG 196 ==
LOC: M ED 15:00 → M ED INP 19:05 → ENRESERV 19:45 → M PCU 21:59
PROVIDERS: ADMIT Internal Medicine; ATTEND Internal Medicine Nephrology
PROC: 02HV33Z Insertion of Infusion Device into Superior Vena Cava, Percutaneous Approach (ICD-10-PCS; principal; 2021-07-28 16:00)
DX: J84.10 Pulmonary fibrosis, unspecified (principal); J96.21 Acute and chronic respiratory failure with hypoxia; I50.32 Chronic diastolic (congestive) heart failure; J67.9 Hypersensitivity pneumonitis due to unspecified organic dust; R78.81 Bacteremia; K76.6 Portal hypertension; E87.0 Hyperosmolality and hypernatremia; D69.6 Thrombocytopenia, unspecified; B95.61 Methicillin susceptible Staphylococcus aureus infection as the cause of diseases classified elsewhere; K75.81 Nonalcoholic steatohepatitis (NASH); K74.60 Unspecified cirrhosis of liver; K21.9 Gastro-esophageal reflux disease without esophagitis; Z79.52 Long term (current) use of systemic steroids; T81.82XA Emphysema (subcutaneous) resulting from a procedure, initial encounter; R16.1 Splenomegaly, not elsewhere classified; E11.65 Type 2 diabetes mellitus with hyperglycemia; Z79.4 Long term (current) use of insulin; Z79.899 Other long term (current) drug therapy; Z88.8 Allergy status to other drugs, medicaments and biological substances; I11.0 Hypertensive heart disease with heart failure; D75.1 Secondary polycythemia; E55.9 Vitamin D deficiency, unspecified; L89.319 Pressure ulcer of right buttock, unspecified stage